=== PATIENT | female | born 2000 | race Caucasian/White ===

== ENCOUNTER → 2024-07-11 15:00 | Outpatient (BNV) | payer MEDICAID, SELFPAY | PROVIDERS: Visit Provider Internal Medicine Cardiovascular Disease | DX: R00.0 Tachycardia, unspecified (principal) | CPT/HCPCS: 93244 ==

== ENCOUNTER → 2024-07-11 | Outpatient (REF) | payer MEDICAID, SELFPAY ==
--- NOTE | 2024-07-11 | HM_ITS ---
Conclusion: 1. Patient was monitored for total period of 3 days 2. Baseline was normal sinus rhythm with average heart of 97 beats per minute 3. Frequent sinus tachycardia noted with 34% of time heart rate about 100 beats per minute 4. Rare PVCs noted with 1 3 beat run of nonsustained VT at 145 beats per minute 5. Patient marked the counter 15 times with symptoms mostly correlating with sinus tachycardia and occasionally with sinus rhythm. MTDD
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
--- OUTSIDE RECORDS SUMMARY | 2024-07-28 16:11 | XMS_ITS | Encounter Summary ---
Author Organization [facility] Address [address] [place] [address] Care Team Providers Care Hair Spinning Machine Operator Name Role Phone Harlan Singleton Primary Care Provider [phone] Encounter Details Date Type Department Care Team (Late st Contact Info) Description 07/09/2024 myChart Message [facility] [address] [place] [address] Dumpcart Driver: Josue Duran, AMBULATORY CARE NURSE [address] [place] [address] obstructive sleep apnea and CPAP Social History Tobacco Use Types Packs/Day Years Used Date Smoking Tobacco: Every Day Cigarettes Smokeless Tobacco: Never Comments Unknown Sex and Gender Information Value Date Recorded Sex Assigned at Female 03/24/2024 10:06 AM EDT Legal Sex Female 5:01 PM EDT Gender Identity Genderqueer 04/30/2024 10:45 AM EST Sexual Orientation Queer 04/30/2024 10 :45 AM EST documented as of this encounter Plan of Treatment Upcoming Encounters Date Type Department Care Team (Late st Contact Info) Description 09/01/2024 1:00 PM EDT Office Visit [facility] Building 4th floor Cardiology Medicine [address] [place] [phone] Dumpcart Driver: Yelena Curiel MD [address] [place], [place] [phone] 09/01/2024 2:30 PM EDT Follow-Up [facility] [address] [place] [phone] Dumpcart Driver: Josue Duran NP [address] [place] [phone] 09/01/2024 3:00 PM EDT Follow-Up [facility] [address] [place] [phone] Dumpcart Driver: Kenny Villarreal MD [address] [place] [phone] 09/03/2024 1:00 PM EDT Appointment [facility] [address] [place] [phone] Dumpcart Driver: Ousmane Perez PA [address] [place] [phone] documented as of this encounter Visit Diagnoses Not on filedocumented in this encounter Care Teams Hair Spinning Machine Operator Relationship Specialty Start Date End Date Harlan Singleton [address] [place] [address] PCP - General Pediatrics 03/24/24 documented as of this encounter
--- OUTSIDE RECORDS SUMMARY | 2024-07-28 16:11 | XMS_ITS | Encounter Summary ---
Author Organization [employer] Address [address] [place] [address] [address] [address] Care Team Providers Care Coding Machine Operator Name Role Phone Gena LewisSW Unavailable [phone] Raul Andrews MD Primary Care Provide r Reason for Visit * Reason Comments Individual Therapy Encounter Details Date Type Department Care Team (Late st Contact Info) Description 07/22/2024 2:00 PM EST Telemedicine [facility] [address] [place] [address] Gena Lewis, ENGINEERING PRODUCTION WORKER [address] [place] [address] Individual Therapy Social History Tobacco Use Types Packs/Day Years [...] AM EDT documented as of this encounter Patient Instructions * Patient Instructions* Gena Lewis, ENGINEERING PRODUCTION WORKER - 07/22/2024 2:00 PM EST Please reach out to your PCP to check in re: symptoms and how you're feeling generally. Practice doing what you need in steps. Work on treatment plan (and determining current priorities) at next session. Meet next week. documented in this encounter Progress Notes * LENNY Hayden - 07/22/2024 2:00 PM EST Psychotherapy Session Note Start Time: 2:07pm End Time: 2:55pm Subjective ID: Nella is a 23 y.o. White queer-identified transmasculine individual (pronouns they/them/theirs) with history of ADHD, MDD, and TESSA who presents for ADHD, Bipolar, Anxiety, and Individual Therapy. Interval History/HPI/PFSH: Clt reported they are not doing well, noting continued fevers, chills, chest pain, and fatigue and their mental health worsening along side. They reported being really frustrated not knowing what is wrong with them and not feeling like anyone takes them seriously. They reported heightened relationship stress. They reported an increase in passive SI, one instance of self harm and lots of thoughts of self harm.They said they can't take medical leave or drop classes and said they have no idea how they will get what they need to done. They agreed to try to think about doing things in steps. Mental Status Exam: General Appearance: Well groomed, appropriate eye contact. Attitude/Behavior: Cooperative, conversant, engaged, and with good eye contact. Motor: No psychomotor agitation or retardation, no tremor or other abnormal movements. Speech: Normal rate, volume, prosody Mood: Dysphoric, anxious, and mildly irritable Affect: Congruent with mood and topic of conversation Thought Process: Linear, goal directed Thought Associations: No loosening of associations Thought Content: Endorsed passive SI and denied plan and intent Perception: Does not endorse AVH or paranoid ideation Sensorium: Alert Insight: Intact Judgment: Intact Cognition: Cognitively intact to conversational testing with respect to attention, orientation, fund of knowledge, recent and remote memory, and language. Assessment/Plan Dialectical Behavioral Therapy and Motivational Interviewing Problem List Items Addressed This Visit Bipolar II disorder, most recent episode major depressive (CMS/HCC) Clt reported struggling with physical health and mental health, noting an increase in fatigue, brain fog, and thoughts of SI and thoughts NSSIB. They denied any plan to act on SI. They endorsed feeling hopeless about everything and missing nicotine as a coping skill. Clt agreed to try to practice alternate relaxation skills and to reout to their PCP. Meet next week. Generalized anxiety disorder Clt reported a lot of worry about not being able to complete everything they need to this semester and reported that not doing school isn't an option. They reported anxiety about relationships, including how to set limits. Clt agreed to practice trying to do what they need in steps. Meet next week. Risk Assessment: Imminent Risk of Suicide or Serious Self-Injury: Medium Risk factors: Depression, History of self harm , History of suicide attempt , Hopelessness , Loss (relational, social, occupational, financial) , Psychosocial stressors including being very sick thisfall and being significantly behind in school work, Severe anxiety, and endorses passive SI and thoughts of self harm Protective factors: Support through ongoing medical and mental healthcare relationships , Current/history of good response to treatment/meds , Interpersonal relationships and supports, e.g., family, friends, peers, community , Future-oriented talk, and Willingness to seek help and support Imminent Risk of Violence or Homicide: Low Risk Factors: No significant risk factors identified on screening Protective Factors: Lack of known history of harm to others documented in this encounter Miscellaneous Notes * Assessment & Plan Note - LENNY Hayden - 07/22/2024 3:05 PM EST Associated Problem(s): Bipolar II disorder, most recent episode major depressive (CMS/HCC) Clt reported struggling with physical health and mental health, noting an increase in fatigue, brain fog, and thoughts of SI and thoughts NSSIB. They denied any plan to act on SI. They endorsed feeling hopeless about everything and missing nicotine as a coping skill. Clt agreed to try to practice alternate relaxation skills and to reout to their PCP. Meet next week. * Assessment & Plan Note - LENNY Hayden - 07/22/2024 3:03 PM EST Associated Problem(s): Generalized anxiety disorder Clt reported a lot of worry about not being able to complete everything they need to this semester and reported that not doing school isn't an option. They reported anxiety about relationships, including how to set limits. Clt agreed to practice trying to do what they need in steps. Meet next week. * Care Plan - LENNY Hayden - 07/22/2024 2:00 PM EST Problem: Bi-Polar Disorder Description: As evidenced by pattern of fluctuating mood, cognitions, and energy states and, including major depressive episodes characterized most prominently by (depressed mood, anhedonia, hypersomnia/sleep disruption, low energy, psychomotor slowing/agitation, impaired cognition, low self-worth/low self esteem, suicidality/morbid thinking/hopelessness, appetite/weight changes and impaired (social, educational, vocational) functioning AND; hypomanic episodes characterized most prominently by (euphoria, irritability, flight of ideas, distractibility/difficulty concentrating, sexual indiscretions/increased libido, financial indiscretions, overconfidence/increased confidence, increased or nor mal energy despite less sleep, increased productivity, rapid speech, etc.) not resulting in significant functional impairment. Goal: GOAL # 1-#3 Description: GOAL # 1: Clt will report sustained decreases in mood dysregulation as evidenced by self-report of mood and functioning and sustained decrease in PHQ-9scores to the mild range over a sixmonth reporting period. Clt will discuss in session symptoms of depression, anger, and mood dysregulation and functioning. Clt will develop and use coping skills to manage depression and mood dysregulation. Clt will develop and use skills to manage overthinking. Clt will develop and use coping skills to manage stress at school and work. Clt will attend all therapy and psychiatry appointments and take medications as prescribed. GOAL # 2: Clt will report increased sense of self sufficiency, comfort in spending time alone, and confidence voicing their feelings as evidenced by self- report and decrease in TESSA-7 scores by two points and sustained PHQ-9 scores. Clt will practice emotional regulation skills and try to utilize themself to help manage their emotions versus relying on other people. Clt will work on prioritizing trying to spend time alone that they can appreciate and value. Clt will work on increasing comfort naming their stress and feelings in the moment Outcome: Not Progressing Note: Clt reported a lot of SI and thoughts of self harm over the past two weeks, generally due to helplessness about not knowing what is driving their health issues and feeling too tired to manage all of the the life goals they have currently. Problem: Anxiety Description: As evidenced by symptoms of: excessive fear and worry, rumination on situations and/orevents, restlessness, feeling keyed up, irritability, trouble concentrating, mind going blank, difficulty falling or staying asleep/restless unsatisfying sleep, and somatic sxs including upset, nervous stomach, muscle tension, or frequent headaches. Goal: GOAL #4 Description: GOAL # 3: Clt will report increased capacity to manage anxiety as evidenced by self-report and a decrease in TESSA-7 scores by 2 points. Clt will develop coping skills to manage anxiety about things that feel outside of his control, as well as anxiety about relationships and family dynamics. Clt will work on ways to alter their relationship to school so that it feels less all or nothing. Clt will develop skills to calm self when they start to feel they're experiencing facial and necktics while stressed and the start of a panic attack. Clt will schedule and attend sessions for therapy and psychiatry regularly. Outcome: Not Progressing Note: Clt reported they have been feeling sick, including chest pain and fevers, over the past month and report a lot of anxiety about school starting on and lacking energy for courses and not knowing how to let people know what they need and can do. documented in this encounter Plan of Treatment Upcoming Encounters Date Type Department Care Team (Late st Contact Info) Description 08/06/2024 3:00 PM EST Telemedicine [facility] [facility] [phone] Gena Lewis LICSW [address] [place] [address] documented as of this encounter Visit Diagnoses Diagnosis Bipolar II disorder, most recent episode major depressive (CMS/HCC) Other bipolar disorders Generalized anxiety disorder documented in this encounter Additional Health Concerns Assessment Noted Time PHQ-9 Depression Total Score: 13 024 1:48 PM EST documented as of this encounter Care Teams Coding Machine Operator Relationship Specialty Start Date End Date Raul Andrews MD [address] [place] [phone] PCP - General Internal Medicine 12/09/23 Gena Lewis LICSW [address] [place] [phone] Forms Analyst Behavioral Health 07/12/22 documented as of this encounter
--- OUTSIDE RECORDS SUMMARY | 2024-07-28 16:11 | XMS_ITS | Encounter Summary ---
Author Organization [employer] Address [address] [place] [address] [address] [address] Care Team Providers Care Telephone Maintainer Name Role Phone Gena Lewis CLASS C DRIVER Unavailable [phone] Raul Andrews MD Primary Care Provide r Reason for Visit * Reason Comments Med Management Encounter Details Date Type Department Care Team (Late st Contact Info) Description 07/25/2024 1:40 PM EST Telemedicine [facility] [address] [place] [address] Shawn Mariee, ELAINE [address] [place] [address] Med Management Social History Tobacco Use Types Packs/Day Years [...] AM EDT documented as of this encounter Progress Notes * Shawn Mariee, ELAINE - 07/25/2024 1:40 PM EST Psychiatry Follow-Up Note Length of visit: 20 mins Subjective ID: Nella Jesus is a 23 y.o. queer-identified trans-masculine individual (pronouns they/them) with history of ADHD, Bipolar, TESSA who presents for Med Management HPI: Last A&P from 02/28: Overall stable and well. Feeling that them symptoms are well managed on current doses of current meds. Not interested in any med adjustments at this time. Denies new/worsening symptoms to address or side effects to be concerned about. Continue current meds. And we agree to check in again once or twice a year. - Discussed need for in-person appointment and labs. They will call to book something for after theterm and probably look to transfer care closer to home. No other follow up requested or recommendedbetween now and then, PRN is fine. Bipolar: Stable on combo of lowest dose Oxcarb and Latuda, and Sertraline, continue. Of note, dosing Sertraline at night, advised to switch to morning to see if that slows down the racing mind at night. If not, could go up on Oxcarb or consider Quetiapine. TESSA: Stable with rare use of PRN Clonazepam which leads to residual morning grogginess. Continue sparinguse. ADHD: Stable/improved with switch to Vyvanse, continue. Renewed. TODAY: - PDMP checked, Vyvanse 30mg filled 07/03. - Of note, not yet seen in person. - Been rough with regards to physical health. - Now going to pulmonology and cardiology r/t tachy. Now on restart on Propranolol. - RHR over 100, - Been this way for about a month, and never has happened before. Came with other viral-type symptoms, with fatigue making school just harder, - Of note, these symptoms persisted without Vyvanse. - Understandably dysregulating mood-aguilar. - F/u with cardio in August. Advised to avoid Vyvanse and presumably other stimulants. - ADHD so much worse on Vyvanse. Hard to focus and do task completion and even simple reading comprehension. - When resting HR is under 100 would consider restarting low dose Vyvanse. - Does have applewatch and got alerting 4x in an hour last night about high HR. Current Medications: Current Outpatient Medications on File Prior to Visit Medication Sig Dispense Refill albuterol 108 (90 Base) MCG/ACT inhaler Inhale 2 puffs every 6 (six) hours if needed. clonazePAM (KlonoPIN) 0.5 MG tablet Take 1 tablet (0.5 mg) by mouth 2 times daily. 30 tablet 5 etonogestrel-eluting (Nexplanon) 68 mg contraceptive implant Nexplanon 68 mg implant lurasidone (Latuda) 80 MG tablet Take 1 tablet (80 mg) by mouth with evening meal. 90 tablet 3 OXcarbazepine (Trileptal) 150 MG tablet TAKE 1 TABLET BY MOUTH 2 TIMES DAILY 180 tablet 3 sertraline (Zoloft) 50 MG tablet Take 1 tablet (50 mg) by mouth Once per day. 90 tablet 3 [DISCONTINUED] lisdexamfetamine (Vyvanse) 30 MG capsule Take 1 capsule (30 mg) by mouth in the morning. 30 capsule 0 No current facility-administered medications on file prior to visit. Review of Symptoms: Review of Systems Constitutional: Negative. Except as per HPI All other systems reviewed and are negative. Objective There were no vitals taken for this visit. Wt Readings from Last 4 Encounters: 06/05/24 275 lb (125 kg) 05/19/24 275 lb (125 kg) 04/21/24 270 lb (122 kg) 04/03/24 270 lb (122 kg) Lab Results Component Value Date HGBA1C 5.1 04/14/2022 TSH 1.67 09/07/2022 Physical Exam Constitutional: Appearance: Normal appearance. Neurological: Mental Status: Nella is alert. Psychiatric: Attention and Perception: Attention and perception normal. Nella does not perceive auditory or visualhallucinations. Mood and Affect: Mood and affect normal. Speech: Speech normal. Behavior: Behavior normal. Behavior is cooperative. Thought Content: Thought content is not paranoid. Thought content does not include homicidal or suicidal ideation. Cognition and Memory: Cognition and memory normal. Judgment: Judgment normal. Assessment/Plan Nella Jesus is a 23 y.o. followed up with virtually today for routine follow up to check in on risks and benefits of meds and updates on mood. Overall very unstable given new onset tachycardia of unclear etiology. Thankfully accessing appropriate specialty care, Cardiology restarted Propranolol 10mg BID yesterday and so far doesn't seem to be helping. This is understandably dysregulating to their mood especially since this also means that they cannot take Vyvanse or utilize caffeine and school just restarted and they are noticing clear ADHD-related deficits. Insightful, astute, descriptive, help- seeking, and self-aware. Denies new or worsening symptoms or side effects to address. - Discussed need for in-person appointment and labs this year. Check in via video after cardiology f/u for potential med restart. Assessment/Plan Problem List Items Addressed This Visit Psychiatry Problems ADHD (attention deficit hyperactivity disorder) - Primary Unstable now off Vyvanse and feeling deficits more pronounced with resumption of school. They know to avoid caffiene and we discussed that the only non- stimulant med FDA approved for ADHD Atomoxetineis also Dopamine impacting thus would potentially lead to the same side effects. They will follow up with cardio soon, at which time we could get the green light to restart a low dose stimulant, advised they stay in touch with news. Bipolar II disorder, most recent episode major depressive (CMS/HCC) Stable on Latuda and Sertraline and Oxcarb. All 3 meds longstanding and generally do not lead to tachy. Continue. Generalized anxiety disorder Understandably unstable, continue PRN Clonazepam which does not worsen tachy. Other Tachycardia Newly diagnosed, etiology unclear, accessing appropriate speciality care. We agree not to change anything during current treatment with Propranolol. Advised they call cardiology office to talk about increasing dose and frequency of Propranolol in about a week since follow up is almost 2 months away. Risk Assessment: Imminent Risk of Suicide or Serious Self-Injury: Low Risk factors: History of not adhering to treatment or medication regimen , History of self harm , and History of suicide attempt Protective factors: Denies current suicidal ideation, Future-oriented talk , Willingness to seek help and support , Access to a variety of clinical interventions , Receiving and engaged in care for mental, physical, and substance use disorders , History of adhering to treatment recommendations and/o r prescribed medication regimen , Support through ongoing medical and mental healthcare relationships , and Current/history of good response to treatment/meds Imminent Risk of Violence or Homicide: Low Risk Factors: No significant risk factors identified on screening Protective Factors: Lack of known history of harm to others , Lack of known history of violent ideation , and Lack of known access to firearms documented in this encounter Miscellaneous Notes * Assessment & Plan Note - Shawn Mariee CNP - 07/25/2024 1:33 PM EST Associated Problem(s): Tachycardia Newly diagnosed, etiology unclear, accessing appropriate speciality care. We agree not to change anything during current treatment with Propranolol. Advised they call cardiology office to talk about increasing dose and frequency of Propranolol in about a week since follow up is almost 2 months away. * Assessment & Plan Note - Shawn Mariee CNP - 07/25/2024 1:31 PM EST Associated Problem(s): Generalized anxiety disorder Understandably unstable, continue PRN Clonazepam which does not worsen tachy. * Assessment & Plan Note - Shawn Mariee CNP - 07/25/2024 1:31 PM EST Associated Problem(s): Bipolar II disorder, most recent episode major depressive ([facility]/HCC) Stable on Latuda and Sertraline and Oxcarb. All 3 meds longstanding and generally do not lead to tachy. Continue. * Assessment & Plan Note - Shawn Mariee CNP - 07/25/2024 1:30 PM EST Associated Problem(s): ADHD (attention deficit hyperactivity disorder) Unstable now off Vyvanse and feeling deficits more pronounced with resumption of school. They know to avoid caffiene and we discussed that the only non- stimulant med FDA approved for ADHD Atomoxetineis also Dopamine impacting thus would potentially lead to the same side effects. They will follow up with cardio soon, at which time we could get the green light to restart a low dose stimulant, advised they stay in touch with news. documented in this encounter Plan of Treatment Upcoming Encounters Date Type Department Care Team (Late st Contact Info) Description 08/06/2024 3:00 PM EST Telemedicine [address] [address] Gena Lewis LICSW [address] [place] [address] documented as of this encounter Visit Diagnoses Diagnosis Attention deficit hyperactivity disorder (ADHD), unspecified ADHD type- Primary Bipolar II disorder, most recent episode major depressive (CMS/HCC) Other bipolar disorders Generalized anxiety disorder Tachycardia Unspecified tachycardia documented in this encounter Additional Health Concerns Assessment Noted Time PHQ-9 Depression Total Score: 13 024 1:48 PM EST documented as of this encounter Care Teams Telephone Maintainer Relationship Specialty Start Date End Date Raul Andrews MD [address] [place] [address] PCP - General Internal Medicine 12/09/23 Gena Lewis LICSW [address] [place] [address] Tableau Administrator Behavioral Health 07/12/22 documented as of this encounter
--- OUTSIDE RECORDS SUMMARY | 2024-07-28 16:11 | XMS_ITS | Encounter Summary ---
Author Organization [facility] Address [address] [place] [address] Care Team Providers Care Career Technical Supervisor Name Role Phone Harlan Singleton Kira Primary Care Provider [phone] Encounter Details Date Type Department Care Team (Late st Contact Info) Description 07/09/2024 Orders Only [facility] [address] [place] [address] Fiscal Accounting Clerk: Josue Duran NP [address] [place] [address] VANNESSA (obstructive sleep apnea) (Primary Dx) Social History Tobacco Use Types Packs/Day Years Used Date Smoking Tobacco: Every Day Cigarettes Smokeless Tobacco: Never Comments Unknown Sex and Gender Information Value Date Recorded Sex Assigned at Female 03/24/2024 10:06 AM EDT Legal Sex Female 5:01 PM EDT Gender Identity Genderqueer 04/30/2024 10:45 AM EST Sexual Orientation Queer 04/30/2024 10 :45 AM EST documented as of this encounter Progress Notes * Josue Osman NP - 07/09/2024 10:01 AM EST Ambulatory Summary 05/21/2024 Jasmin Akhtar-Aguarrido - 23 y.o. Female; born 2000Ma2000Data Portability, generated on 2023Nov2023 Assessment No assessment recorded. Plan of Treatment Plan of Treatment Reminders Order Date Submit Date Provider Last Modified By Organization Details Last Modified Time Details Appointments None recorded. Lab None recorded. Referral None recorded. Procedures None recorded. Surgeries None recorded. Imaging polysomnogram 04/17/2024 04/17/2024 [facility], [address] [place], [address], 05/01/2024 10:23:05 Medication Orders None recorded. Problems Reconcile with Patient's ChartProblems Name Problem SNOMED Code Status Onset Date Resolution Date Notes Provider Name and Address Organization Details Recorded Time Obstructive sleep apnea syndrome 78427834 Active 04/17/2024 PA LEWIS MD [address] [place] [address],[address], [address], [place] - [facility] 04/17/2024 14:29:21 Deviated nasal septum [id number] Active 04/20/2024 PA LEWIS MD [address] [place] [address],[address], [address], [place] - [facility] 04/20/2024 13:26:42 Note Type Note Provider Name and Address Organization Details Recorded Time 04/17/2024 text/html 23 yo presents for nasal congestion. Started 2 years ago, sick and congested, left nostril still congested, feels finger cannot go in asfar.' Does have snoring and apnea. No nasal trauma. No sinus infections. No known allergies. No trouble swallowing, no ear pain. Does have appt to see wood cut engraver. * Josue Osman NP - 07/09/2024 9:58 AM EST [address] [address] Order Type: [x] New Patient Name: Jasmin Akhtar : 2000 MR#: [id number] Patient Address: [address] [place] [address] Preferred Contact Number: [phone] (home) Insurance: Primary Visit Coverage Payer Plan Sponsor Code Group Number Group Name [facility] Primary Visit Coverage Subscriber ID Name SSN Address [id number] JASMIN AKHTAR [id number] [place] [address] Diagnosis: [x] Obstructive Sleep Apnea (G47.33) Date of Diagnostic Study: 06/06/24 Type of Study: PSG AHI: _5.8 (REM AHI 25)_ Date of most recent Syrz-zs-Kbrn Visit: 04/17/24 Therapeutic Objectives: To Treat Sleep Disordered Breathing Frequency of Use per Day: For Nightly Use During Sleep and Daily Use During Naps Location: For Use in Patient???s Home Length of Need: Lifetime (99mo) Refills on Supplies: PRN x 99 months Equipment: [X] Auto-CPAP Settings: 4-16_ CM [X] Heated Humidifier [X] Ramp to Need [X] NO EPR [X] Please enroll in online compliance Supplies: As needed and requested by patient to include: [X] Mask: Fit to comfort [X] Nasal Pillows (if applicable) [X] Cushions (if applicable) [X] Headgear [X] Chin Strap [X] Tubing [X] Heated Tubing [X] Humidifier Chamber [X] Non-disposable/disposable filters [X] Heated Humidifier Provider???s electronic signature certifies that the above represents his/her judgment of the patient???s medical need for the equipment and supplies. Please use as a script when signed: Provider???s Name: Rui Osman NP NPI#: [id number] Date of Order: 07/09/24 Home Care Company/Fax: __[facility]____ * Josue Osman NP - 07/09/2024 9:51 AM EST Follow up Telephone encounter: Recent PSG on 06/06/24 at Sleep medicine service at [facility] (ordered by ENT clinic 04/17/24 visit due to snoring, witnessed apnea) AHI 5.8, REM AHI 25, neema 88%, Lowest HR 55, highest HR 117. Mild VANNESSA with excessive daytime sleepiness Today ESS 2+2+2+1+2+1+3+0=13 Difficulty falling asleep. Wakes up feeling tired, Over the past year, gained 60 lbs, height 5'9''- BMI 40 Not on Concerta any more. Reviewed the medical complications that arise from untreated VANNESSA. Patient is having ongoing symptomatic idiopathic tachycardia. Patient agrees the importance of treatment. Agrees to start CPAP therapy. Will order auto-CPAP through DME. Emphasized the importance of using it over 4 hours a night and more than 70% of the time. Will follow up in August 2024. [facility] documented in this encounter Plan of Treatment Upcoming Encounters Date Type Department Care Team (Late st Contact Info) Description 09/01/2024 1:00 PM EDT Office Visit [facility] 4th floor Cardiology Medicine [address] [place] [address] Fiscal Accounting Clerk: Yelena Curiel MD [address] [place] [address] 09/01/2024 2:30 PM EDT Follow-Up [facility] [address] [place] [address] Fiscal Accounting Clerk: Josue Duran NP [address] [place] [address] 09/01/2024 3:00 PM EDT Follow-Up [facility] [address] [place] [address] Fiscal Accounting Clerk: Kenny Villarreal MD [address] [place] [address] 09/03/2024 1:00 PM EDT Appointment [facility] [address] [place] [address] Fiscal Accounting Clerk: Ousmane Perez PA [address] [place] [address] documented as of this encounter Visit Diagnoses Diagnosis VANNESSA (obstructive sleep apnea)- Primary Obstructive sleep apnea (adult) (pediatric) documented in this encounter Care Teams Career Technical Supervisor Relationship Specialty Start Date End Date Harlan Singleton [address] [place] [address] PCP - General Pediatrics 03/24/24 documented as of this encounter
--- OUTSIDE RECORDS SUMMARY | 2024-07-28 16:12 | XMS_ITS | Encounter Summary ---
Author Organization [facility] ([facility]) Address [address] [place] [address] Care Team Providers Care Casting Associate Name Role Phone Shruthi Cruz HEAVY ANTIARMOR WEAPONS INFANTRYMAN Unavailable Unava ilable Pcp, Non Hc Primary Care Provider Unavailabl e Reason for Visit * Reason Onset Date Comments Other 12/02/2020 Vision appt Encounter Details Date Type Department Care Team (Late st Contact Info) Description 12/02/2020 Telephone [facility] [address] [place] [address] Pcp, Non Hc [place] Other (Vision appt) Social History Tobacco Use Types Packs/Day Years Used Date Smoking Tobacco: Never Smokeless Tobacco: Never Alcohol Use Standard Drinks/Week Comments No 0 (1 standard drink = 0.6 oz pur e alcohol) Comments No Sex and Gender Information Value Date Recorded Sex Assigned at Female 11/08/2017 8:03 PM EDT Legal Sex Female 8:00 PM EDT Gender Identity Transgender Male 11/08/2017 8:03 PM EDT Sexual Orientation Bisexual 11/08/2017 8: 03 PM EDT documented as of this encounter Miscellaneous Notes * Telephone Encounter - Gregorio Thompson - 12/02/2020 1:06 PM EDT CC if pt calls back please r/s vision appt for a later time, appts at [facility] can not be book between 8-9AM or 4-5PM Thank you ! documented in this encounter Plan of Treatment Not on file documented as of this encounter Goals Goal Patient Goal Type Associated Problems Recent Progress Patient-Stated? Author Decrease depressed mood BHI Not on track( 016 4:29 PM EDT) No Shruthi Carmona LCSW Add fruits & vegetables daily Diet No Cindi Jamil RD, LDN, [place] avoid rigid food habits Diet No Cindi Jamil RD, LDN, [place] Modify meal routines Weight Obesity, pediatric No Macey Hu MD documented as of this encounter Visit Diagnoses Not on filedocumented in this encounter Additional Health Concerns Infection Onset Date Last Indicated Resolved Time COVID Suspected 03/22/2021 03/22/2021 03/24/2021 6 :54 AM EDT documented as of this encounter Care Teams Casting Associate Relationship Specialty Start Date End Date Pcp, Non Hc [facility] PCP - General Adult Medicine 09/20/20 Shruthi Cruz LCSW Mental Health Behavioral Health 12/03/15 documented as of this encounter
--- OUTSIDE RECORDS SUMMARY | 2024-07-28 16:12 | XMS_ITS | Encounter Summary ---
Author Organization [facility] Address [phone] [facility] [place] [address] Care Team Providers Care Car Electronics Installer Name Role Phone Jennifer Negron NP Primary Care Provider [phone] Encounter Details Date Type Department Care Team (Latest Contact Info) Description 03/13/2024 Transcribe Orders [facility] [address] [place] [address] Unknown, Unknown, Encounter for rehabilitation (Primary Dx) Social History Tobacco Use Types Packs/Day Years Used Date Smoking Tobacco: Never Smokeless Tobacco: Never Alcohol Use Standard Drinks/Week Comments Yes 0 (1 standard drink = 0.6 oz pur e alcohol) Occassionally Education Answer Date Recorded Are you interested in more education? Not on dorothy e 10/20/2022 Are you concerned about learning? Not on file 10/20/2022 No 10/20/2022 No 10/20/2022 Digital Access Answer Date Recorded No 11/14/2022 No 11/14/2022 Reliable internet access at home? Not on file 11/14/2022 Device with a working camera? Not on file Intimate Partner Violence Answer Date R ecorded Are you denied basic needs s uch as food, clothing, or medical care? No 03/16/2024 In the past 12 months have y ou been in a relationship with a person who hurts, threatens, or tries to control you? No 03/16/2024 Are you denied basic needs s uch as food, clothing, or medical care? No 03/16/2024 In the past 12 months have y ou been in a relationship with a person who hurts, threatens, or tries to control you? No 03/16/2024 Sex and Gender Information Value Date Recorded Sex Assigned at Female 03/27/2021 2:48 PM EDT Gender Identity Transgender Male 08/06/2018 6:46 PM EST Sexual Orientation Bisexual 03/27/2021 2: 48 PM EDT Sexual Orientation Pansexual 03/27/2021 2: 48 PM EDT documented as of this encounter Plan of Treatment Upcoming Encounters Date Type Department Care Team (Late st Contact Info) Description 10/14/2024 9:45 AM EDT Office Visit [address] [address] Marilynn Whitley, NII [address] [place] [address] Rosy Dawkins, PT [address] [place] [address] 10/21/2024 9:45 AM EDT Office Visit [address] [address] Marilynn Whitley, NII [facility] [place] [address] Rosy Dawkins, PT [address] [place] [address] 10/28/2024 9:45 AM EDT Office Visit [address] [address] Marilynn Whitley, NII [address] [place] [address] Rosy Dawkins, PT [address] [place] [address] 11/04/2024 9:45 AM EDT Office Visit [address] [address] Marilynn Whitley, NII [address] [place] [address] Rosy Dawkins, PT [address] [place] [address] 11/11/2024 9:45 AM EDT Office Visit [facility] [address] [place] [address] Marilynn Whitley, DIRECTOR CARDIOVASCULAR [address] [place] [address] Rosy Dawkins, PT [address] [place] [address] 11/18/2024 9:45 AM EDT Office Visit [facility] [address] [place] [address] Marilynn Whitley, NII [address] [place] [address] Rosy Dawkins, PT [address] [place] [address] 11/25/2024 9:45 AM EDT Office Visit [facility] [address] [place] [address] Marilynn Whitley, DIRECTOR CARDIOVASCULAR [address] [place] [address] Rosy Dawkins, PT [address] [place] [address] 12/02/2024 9:45 AM EDT Office Visit [address] [address] Marilynn Whitley, DIRECTOR CARDIOVASCULAR [address] [place] [address] Rosy Dawkins, PT [address] [place] [address] documented as of this encounter Visit Diagnoses Diagnosis Encounter for rehabilitation- Primary documented in this encounter Additional Health Concerns Infection Onset Date Last Indicated Resolved Time CoV-Risk 03/16/2024 03/16/2024 03/27/2024 1:22 AM EDT CoV-Risk 07/03/2024 07/03/2024 07/14/2024 1:22 AM EST documented as of this encounter Care Teams Car Electronics Installer Relationship Specialty Start Date End Date Jennifer Negron NP [address] [facility] [address] [place] [address] PCP - General Nurse Practitioner 06/26/23 documented as of this encounter Additional Source Comments The information contained in this document represents components of the legal health record. It is not the complete legal health record.[facility]
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
--- OUTSIDE RECORDS SUMMARY | 2024-07-28 16:12 | XMS_ITS | Encounter Summary ---
Author Organization [facility] Address [phone] [facility] [place] [address] Care Team Providers Care Shovel Mechanic Name Role Phone Jennifer Negron NP Primary Care Provider [phone] Reason for Visit * Reason Comments Fatigue Fatigue,body aches, chills, fever,sob, stomach pain for the past 8 days getting worse and for the past hr pt feels weak and shaky Encounter Details Date Type Department Care Team (Late st Contact Info) Description 07/03/2024 5:00 PM EST Office Visit [facility] at [address] [address] Laura Marquez, [address] [address] Tachycardia (Primary Dx); Shortness of breath Social History Tobacco Use Types Packs/Day Years Used Date Smoking Tobacco: Some Days Cigarettes Smokeless Tobacco: Never Alcohol Use Standard Drinks/Week [...] as food, clothing, or medical care? No 07/03/2024 In the past 12 months have y ou been in a relationship with a person who hurts, threatens, or tries to control you? No 07/03/2024 Are you denied basic needs s uch as food, clothing, or medical care? No 07/03/2024 In the past 12 months have y ou been in a relationship with a person who hurts, threatens, or tries to control you? No 07/03/2024 Sex and Gender Information Value Date Recorded Sex Assigned at Female 03/27/2021 2:48 PM EDT Gender Identity Transgender Male 08/06/2018 6:46 PM EST Sexual Orientation Bisexual 03/27/2021 2: 48 PM EDT Sexual Orientation Pansexual 03/27/2021 2: 48 PM EDT documented as of this encounter Last Filed Vital Signs Vital Sign Reading Time Taken Comments Blood Pressure 147/101 07/03/2024 6:34 PM EST Pulse 116 07/03/2024 5:33 PM EST Temperature 36.7 ??C (98.1 ??F) 07/03/2024 5:33 PM ES T Respiratory Rate 20 07/03/2024 5:33 PM EST Oxygen Saturation 96% 07/03/2024 5:33 PM EST Inhaled Oxygen Concentration - - Weight 127 kg (280 lb) 07/03/2024 5:33 PM EST Height 175.3 cm (5' 9 ) 07/03/2024 5:33 PM EST Body Mass Index 41.35 07/03/2024 5:33 PM EST documented in this encounter Progress Notes * Laura Marquez, BASEBALL WINDER - 07/03/2024 5:00 PM EST Images from the original note were not included. Subjective: Patient ID: Jasmin Smith is a 23 y.o. adult. Pt reports atigue,body aches, chills, fever,sob, stomach pain for the past 8 days getting worse, nodiarrhea for 3 days. Weak, shakey, SOB x past hour [employer]. Review of Systems Constitutional: Positive for chills and fever. HENT: Positive for congestion and rhinorrhea. Respiratory: Positive for cough and shortness of breath. Cardiovascular: Positive for chest pain. Gastrointestinal: Positive for abdominal pain and diarrhea. Negative for nausea and vomiting. Neurological: Positive for weakness. Vitals: 07/03/24 1733 07/03/24 1834 BP: (!) 154/110 (!) 147/101 BP Location: Right arm Patient Position: Sitting Pulse: (!) 116 Resp: 20 Temp: 36.7 ??C (98.1 ??F) TempSrc: Temporal SpO2: 96% Weight: 127 kg (280 lb) Height: 175.3 cm (5' 9 ) Objective: Physical Exam Constitutional: Appearance: Normal appearance. HENT: Head: Normocephalic and atraumatic. Right Ear: External ear normal. Left Ear: External ear normal. Nose: Congestion and rhinorrhea present. Mouth/Throat: Mouth: Mucous membranes are dry. Pharynx: Oropharynx is clear. Cardiovascular: Rate and Rhythm: Tachycardia present. Heart sounds: No murmur heard. No gallop. Pulmonary: Effort: Pulmonary effort is normal. Breath sounds: Normal breath sounds. Abdominal: General: Abdomen is protuberant. Bowel sounds are normal. Palpations: Abdomen is soft. Tenderness: There is no abdominal tenderness. Skin: General: Skin is warm and dry. Neurological: General: No focal deficit present. Mental Status: He is alert and oriented to person, place, and time. Psychiatric: Mood and Affect: Mood normal. Behavior: Behavior normal. Thought Content: Thought content normal. Judgment: Judgment normal. Results for orders placed or performed in visit on 07/03/24 POCT COVID-19 RT-PCR/Influenza A & B/RSV (Cepheid) Result Value Ref Range Source Nasal swab SARS-CoV-2 (COVID-19) NEGATIVE-Valid Control NEGATIVE-Valid Control Influenza A Negative, Valid Control Negative, Valid Control Influenza B Negative, Valid Control Negative, Valid Control RSV Negative, Valid Control Negative, Valid Control Procedure: Procedures Assessment/Plan: Diagnosis Plan 1. Tachycardia 2. Shortness of breath POCT COVID-19 RT-PCR/Influenza A & B/RSV (Cepheid) XR Chest Assessment and Plan: Pt with tachycardia and CP, POC testing, CXR negative, 12-lead showed tachycardia but otherwise WNL. Appears mildly dehydrated. While pt waiting for results/ recommendation from medical accounting clerk she c/o worsening CP, therefore ED eval indicated. documented in this encounter Plan of Treatment Upcoming Encounters Date Type Department Care Team (Late st Contact Info) Description 10/14/2024 9:45 AM EDT Office Visit [address] [address] Marilynn Whitley, NII [address] [place] [address] Rosy Dawkins, PT [address] [place] [address] 10/21/2024 9:45 AM EDT Office Visit [address] [address] Marilynn Whitley, NII [address] [place] [address] Rosy Dawkins, PT [address] [place] [address] 10/28/2024 9:45 AM EDT Office Visit [address] [address] Marilynn Whitley, MICROBIAL SPECIALIST [address] [place] [address] Rosy Dawkins, PT [address] [place] [address] 11/04/2024 9:45 AM EDT Office Visit [address] [address] Marilynn Whitley, MICROBIAL SPECIALIST [address] [place] [address] Rosy Dawkins, PT [address] [place] [address] 11/11/2024 9:45 AM EDT Office Visit [address] [address] Marilynn Whitley, MICROBIAL SPECIALIST [address] [place] [address] Rosy Dawkins, PT [address] [place] [address] 11/18/2024 9:45 AM EDT Office Visit [facility] [address] [place] [address] Marilynn Whitley, MICROBIAL SPECIALIST [address] [place] [address] Rosy Dawkins, PT [address] [place] [address] 11/25/2024 9:45 AM EDT Office Visit [facility] [address] [place] [address] Marilynn Whitley, MICROBIAL SPECIALIST [address] [place] [address] Rosy Dawkins, PT [address] [place] [address] 12/02/2024 9:45 AM EDT Office Visit [facility] [address] [place] [address] Marilynn Whitley, MICROBIAL SPECIALIST [address] [place] [address] Rosy Dawkins, PT [address] [place] [address] documented as of this encounter Procedures Procedure Name Priority Date/Time Associated Diagnosis Comments POCT COVID-19 RT-PCR/INFLUENZA A & B/RSV CEPHEID Routine 07/03/2024 6:08 PM EST Shortness of breath XR CHEST PA AND LATERAL 2 VIEWS Urgent/patient waiting 07/03/2024 5:58 PM EST Shortness of breath documented in this encounter Results * POCT COVID-19 RT-PCR/Influenza A & B/RSV (Cepheid) (07/03/2024 6:08 PM EST) Source Nasal swab SARS-CoV-2 (COVID-19) NEGATIVE-Va lid Control NEGATIVE-Va lid Control Influenza A Negative, Valid Control Negative, Valid Control Influenza B Negative, Valid Control Negative, Valid Control RSV Negative, Valid Control Negative, Valid Control Other 07/03/2024 6:08 PM EST Laura Marquez CNP POINT OF CARE TEST ORDERABLES * XR CHEST PA AND LATERAL 2 VIEWS (07/03/2024 5:58 PM EST) Anatomical Region Laterality Modality Chest Computed Radiogr aphy 07/03/2024 6:16 PM EST Impressions 07/03/2024 6:20 PM EST No acute findings. Narrative 07/03/2024 6:20 PM EST XR CHEST PA AND LATERAL 2 VIEWS Referring clinician's provided indication for this examination in [facility]: Cough COMPARISON: XR CHEST PA AND LATERAL 2 VIEWS FINDINGS: Devices/Tubes/Lines: None. Lungs: No focal consolidation or pulmonary edema. Pleura: Similar mild blunting of the right costophrenic sulcus could reflect pleural thickening. Heart/Mediastinum: Normal heart and mediastinum. Bones/Soft Tissues: No significant skeletal abnormality. Procedure Note Brittany Jaeger MD - 07/03/2024 XR CHEST PA AND LATERAL 2 VIEWS Referring clinician's provided indication for this examination in [facility]:Cough COMPARISON: XR CHEST PA AND LATERAL 2 VIEWS FINDINGS: Devices/Tubes/Lines: None. Lungs: No focal consolidation or pulmonary edema. Pleura: Similar mild blunting of the right costophrenic sulcus couldreflect pleural thickening. Heart/Mediastinum: Normal heart and mediastinum. Bones/Soft Tissues: No significant skeletal abnormality. IMPRESSION: No acute findings. Laura Marquez CNP IMG XR CHEST documented in this encounter Visit Diagnoses Diagnosis Tachycardia- Primary Unspecified tachycardia Shortness of breath documented in this encounter Additional Health Concerns Infection Onset Date Last Indicated Resolved Time CoV-Risk 07/03/2024 07/03/2024 07/14/2024 1:22 AM EST documented as of this encounter Care Teams Shovel Mechanic Relationship Specialty Start Date End Date Jennifer Negron NP [address] [address] PCP - General Nurse Practitioner 06/26/23 documented as of this encounter Additional Source Comments The information contained in this document represents components of the legal health record. It is not the complete legal health record.[facility]
--- OUTSIDE RECORDS SUMMARY | 2024-07-28 16:12 | XMS_ITS | Encounter Summary ---
Author Organization [facility] Address [phone] [facility] [place] [address] Care Team Providers Care Family Dentist Name Role Phone Pcp, Unknown Primary Care Provider Unavailjuan luis e Jennifer Negron MANAGER ACCESS Primary Care Provider [phone] Jennifer Negron NP Primary Care Provider [phone] Encounter Details Date Type Department Care Team (Latest Contact Info) Description 04/03/2022 Transcribe Orders Virtual Department [address] [place] [address] Jennifer Negron NP [address] [place] [address] Pelvic pain (Primary Dx); Polycystic ovarian syndrome Social History Tobacco Use Types Packs/Day Years Used Date Smoking Tobacco: Never Smokeless Tobacco: Never Sex and Gender Information Value Date Recorded [...] Description 10/14/2024 9:45 AM EDT Office Visit [facility] [address] [place] [address] Marilynn Whitley, NII [address] [place] [address] Rosy Dawkins, PT [address] [place] [address] 10/21/2024 9:45 AM EDT Office Visit [address] [address] Marilynn Whitley, MANAGER ACCESS [address] [place] [address] Rosy Dawkins, PT [address] [place] [address] 10/28/2024 9:45 AM EDT Office Visit [address] [address] Marilynn Whitley, MANAGER ACCESS [address] [place] [address] Rosy Dawkins, PT [address] [place] [address] 11/04/2024 9:45 AM EDT Office Visit [address] [address] Marilynn Whitley, MANAGER ACCESS [address] [place] [address] Rosy Dawkins, PT [address] [place] [address] 11/11/2024 9:45 AM EDT Office Visit [address] [address] Marilynn Whitley, MANAGER ACCESS [address] [place] [address] Rosy Dawkins, PT [address] [place] [address] 11/18/2024 9:45 AM EDT Office Visit [address] [address] Marilynn Whitley, MANAGER ACCESS [address] [place] [address] Rosy Dawkins, PT [address] [place] [address], [place] [address] 11/25/2024 9:45 AM EDT Office Visit [facility] [address] [place] [address] Marilynn Whitley, MANAGER ACCESS [address] [place] [address] Rosy Dawkins, PT [address] [place] [address] 12/02/2024 9:45 AM EDT Office Visit [facility] [address] [facility] [address] Marilynn Whitley, NII [address] [place] [address] Rosy Dawkins, PT [address] [place] [address] documented as of this encounter Results * US PELVIS TRANSABDOMINAL PLUS TRANSVAGINAL (04/19/2022 4:42 PM EDT) Anatomical Region Laterality Modality Pelvis, Uterus/Adnexa Ultrasound 04/20/2022 8:26 AM EDT Impressions 04/20/2022 8:30 AM EDT 1.Normal sonographic appearance of the uterus and bilateral ovaries. Narrative 04/20/2022 8:30 AM EDT US PELVIS TRANSABDOMINAL PLUS TRANSVAGINAL TECHNIQUE: Pelvic Ultrasound Transabdominal performed for global imaging of the pelvis. Pelvic Ultrasound Transvaginal performed for detailed imaging of the endometrium and/or adnexa. COMPARISON: Pelvic sonography 03/30/2021 FINDINGS: Uterus: Size: ??7.2 x 2.6 x 4.2 cm. Orientation: anteverted ??Myometrium: Normal. Endometrium: Normal. Thickness: 2 mm. Right adnexa: Ovary: Normal. The right ovary measures 2.6 x 1.9 x 2.3 cm. Normal color and spectral Doppler waveform analysis. Left adnexa: Ovary: Normal. The left ovary measures 2.2 x 1.3 x 1.4 cm. Color and spectral Doppler waveform analysis limited by positioning of the ovary. Free fluid: No significant free fluid. Procedure Note Diane Dejesus MD - 04/20/2022 US PELVIS TRANSABDOMINAL PLUS TRANSVAGINAL TECHNIQUE: Pelvic Ultrasound Transabdominal performed for global imagingof the pelvis. Pelvic Ultrasound Transvaginal performed for detailedimaging of the endometrium and/or adnexa. COMPARISON: Pelvic sonography 03/30/2021 FINDINGS: Uterus: Size: 7.2 x 2.6 x 4.2 cm. Orientation: anteverted Myometrium: Normal. Endometrium: Normal. Thickness: 2 mm. Right adnexa: Ovary: Normal. The right ovary measures 2.6 x 1.9 x 2.3 cm. Normal color andspectral Doppler waveform analysis. Left adnexa: Ovary: Normal. The left ovary measures 2.2 x 1.3 x 1.4 cm. Color and spectralDoppler waveform analysis limited by positioning of the ovary. Free fluid: No significant free fluid. IMPRESSION: 1.Normal sonographic appearance of the uterus and bilateral ovaries. Jennifer Negron NP IMG US PELVIS documented in this encounter Visit Diagnoses Diagnosis Pelvic pain- Primary Polycystic ovarian syndrome Polycystic ovaries Pelvic pain Polycystic ovarian syndrome Polycystic ovaries documented in this encounter Additional Health Concerns Infection Onset Date Last Indicated Resolved Time CoV-Risk 03/16/2024 03/16/2024 03/27/2024 1:22 AM EDT CoV-Risk 07/03/2024 07/03/2024 07/14/2024 1:22 AM EST documented as of this encounter Care Teams Family Dentist Relationship Specialty Start Date End Date Pcp, Unknown PCP - General 03/15/21 04/13/22 Jennifer Negron NP [address] [address] PCP - General 04/14/22 06/25/23 Jennifer Negron NP [address] [address] PCP - General Nurse Practitioner 06/26/23 documented as of this encounter Additional Source Comments The information contained in this document represents components of the legal health record. It is not the complete legal health record.[facility]
--- OUTSIDE RECORDS SUMMARY | 2024-07-28 16:12 | XMS_ITS | Encounter Summary ---
Author Organization [facility] Address [phone] [facility] [place] [address] Care Team Providers Care Net Software Architect Name Role Phone Pcp, Unknown Primary Care Provider Jennifer Dunham NP Primary Care Provider [phone] Jennifer Negron NP Primary Care Provider [phone] Encounter Details Date Type Department Care Team (Late st Contact Info) Description 03/15/2021 Transcribe Orders Virtual Department [address] [place] [address] Julia Ferrara CNP [address] [place] [phone] [email or web address] Pelvic and perineal pain (Primary Dx) Social History Tobacco Use Types [...] Description 10/14/2024 9:45 AM EDT Office Visit [facility] [address] [place] [id number] Marliynn Whitley, NII [address] [place] [address] Rosy Dawkins, PT [address] [place] [address] 10/21/2024 9:45 AM EDT Office Visit [facility] [address] [place] [address] Marilynn Whitley, AMBULANCE DRIVER PARAMEDIC [address] [place] [address] Rosy Dawkins, PT [address] [place] [address] 10/28/2024 9:45 AM EDT Office Visit [address] [address] Marilynn Whitley, AMBULANCE DRIVER PARAMEDIC [address] [place] [address] Rosy Dawkins, PT [address] [place] [address] 11/04/2024 9:45 AM EDT Office Visit [address] [address] Marilynn Whitley, AMBULANCE DRIVER PARAMEDIC [address] [place] [address] Rosy Dawkins, PT [address] [place] [address] 11/11/2024 9:45 AM EDT Office Visit [address] [address] Marilynn Whitley, AMBULANCE DRIVER PARAMEDIC [address] [place] [address] Rosy Dawkins, PT [address] [place] [address] 11/18/2024 9:45 AM EDT Office Visit [address] [address] Marilynn Whitley, AMBULANCE DRIVER PARAMEDIC [address] [place] [address] Rosy Dawkins, PT [address] [place] [address] 11/25/2024 9:45 AM EDT Office Visit [facility] [address] [place] [address] Marilynn Whitley, AMBULANCE DRIVER PARAMEDIC [address] [place] [address] Rosy Dawkins, PT [address] [place] [address] 12/02/2024 9:45 AM EDT Office Visit [facility] [address] [place] [address] Marilynn Whitley, AMBULANCE DRIVER PARAMEDIC [address] [place] [address] Rosy Dawkins, PT [address] [place] [address] documented as of this encounter Results * US PELVIS TRANSABDOMINAL PLUS TRANSVAGINAL (03/30/2021 5:01 PM EDT) Anatomical Region Laterality Modality Pelvis, Uterus/Adnexa Ultrasound 03/30/2021 5:14 PM EDT Impressions 03/30/2021 5:16 PM EDT Intrauterine device in appropriate position. No sonographic abnormalities. Narrative 03/30/2021 5:16 PM EDT EXAM: ?? US PELVIS TRANSABDOMINAL PLUS TRANSVAGINAL COMPARISON: None HISTORY: Pain FINDINGS: UTERUS: The uterus is anteflexed, measures 7.6 cm x 3.3 cm x 5.1 cm, volume of 66.4 cm3, and demonstrates homogeneous ??myometrial echotexture. The endometrial echocomplex measures 0.3 cm in thickness. Intrauterine device in place terminates at 0.2 cm from the fundic end of the endometrium. RIGHT OVARY: 3.6 cm x 1.9 cm x 2.5 cm, volume of 9.0 cm3. Normal follicular appearance. Arterial and venous flow is demonstrated with color and spectral Doppler.. LEFT OVARY: 3.4 cm x 2.0 cm x 3.2 cm, volume of 11.3 cm3. Normal follicular appearance. Arterial and venous flow is demonstrated with color and spectral Doppler.. PELVIS: No free fluid. Procedure Note Triston Ware MD - 03/30/2021 EXAM: US PELVIS TRANSABDOMINAL PLUS TRANSVAGINAL COMPARISON: None HISTORY: Pain FINDINGS: UTERUS: The uterus is anteflexed, measures 7.6 cm x 3.3 cm x 5.1 cm,volume of 66.4 cm3, and demonstrates homogeneous myometrial echotexture.The endometrial echocomplex measures 0.3 cm in thickness. Intrauterinedevice in place terminates at 0.2 cm from the fundic end of theendometrium. RIGHT OVARY: 3.6 cm x 1.9 cm x 2.5 cm, volume of 9.0 cm3. Normalfollicular appearance. Arterial and venous flow is demonstrated with colorand spectral Doppler.. LEFT OVARY: 3.4 cm x 2.0 cm x 3.2 cm, volume of 11.3 cm3. Normalfollicular appearance. Arterial and venous flow is demonstrated with colorand spectral Doppler.. PELVIS: No free fluid. IMPRESSION: Intrauterine device in appropriate position. No sonographicabnormalities. Nemesio-Catjames Ferrara [facility] IM US PELVIS documented in this encounter Visit Diagnoses Diagnosis Pelvic and perineal pain- Primary Pelvic and perineal pain documented in this encounter Additional Health Concerns Infection Onset Date Last Indicated Resolved Time CoV-Risk 03/16/2024 03/16/2024 03/27/2024 1:22 AM EDT CoV-Risk 07/03/2024 07/03/2024 07/14/2024 1:22 AM EST documented as of this encounter Care Teams Net Software Architect Relationship Specialty Start Date End Date Pcp, Unknown PCP - General 03/15/21 04/13/22 Jennifer Negron NP [address] [place] [address] PCP - General 04/14/22 06/25/23 Jennifer Negron NP [address] [place] [address] PCP - General Nurse Practitioner 06/26/23 documented as of this encounter Additional Source Comments The information contained in this document represents components of the legal health record. It is not the complete legal health record.[facility]
--- OUTSIDE RECORDS SUMMARY | 2024-07-28 16:12 | XMS_ITS | Encounter Summary ---
Author Organization [facility] Address [phone] [place] [address] Care Team Providers Care [employer] Plans Staff Officer Name Role Phone Jennifer Negron NP Primary Care Provider [phone] Reason for Referral * Outpatient Procedure - Closed Specialty Diagnoses / Procedures Referred By Contac t Referred To Contact Radiology Diagnoses Right calf pain Procedures US Lower Extremity Veins Duplex (Right) Jennifer Negron NP [address] [address] Referral ID Status Reason Start Date Expiration Date Visits Re quested Visits Authorized [id number] Closed 10/19/2023 10/18/2024 1 1 Encounter Details Date Type Department Care Team (Latest Contact Info) Description 10/22/2023 Transcribe Orders Virtual Department [address] [place] [address] Jennifer Negron NP [address] [address] Right calf pain (Primary Dx) Social History Tobacco Use Types Packs/Day Years Used Date Smoking Tobacco: Never Smokeless Tobacco: Never Education Answer Date Recorded Are you interested in more education? Not on dorothy e 10/20/2022 Are you concerned about learning? Not on file 10/20/2022 No 10/20/2022 No 10/20/2022 Digital Access Answer Date Recorded No 11/14/2022 No 11/14/2022 Reliable internet access at home? Not on file 11/14/2022 Device with a working camera? Not on file Sex and Gender Information Value Date Recorded [...] Description 10/14/2024 9:45 AM EDT Office Visit [address] [address] Marilynn Whitley, NII [address] [place] [address] Rosy Dawkins, PT [address] [place] [address] 10/21/2024 9:45 AM EDT Office Visit [address] [address] Marilynn Whitley, DISTRICT FI[employer]F [facility] [place] [address] Rosy Dawkins, PT [address] [place] [address] 10/28/2024 9:45 AM EDT Office Visit [address] [address] Marilynn Whitley, DISTRICT FI[employer] CHIEF [facility] [place] [address] Rosy Dawkins, PT [address] [place] [address] 11/04/2024 9:45 AM EDT Office Visit [address] [address] Marilynn Whitley, NII [facility] [place] [address] Rosy Dawkins, PT [address] [place] [address] 11/11/2024 9:45 AM EDT Office Visit [facility] [address] [place] [address] Marilynn Whitley, DISTRICT [employer]IEF [address] [place] [address] Rosy Dawkins, PT [address] [place] [address] 11/18/2024 9:45 AM EDT Office Visit [address] [address] Marilynn Whitley, DISTRICT FI[employer]IEF [address] [place] [address] Rosy Dawkins, PT [address] [place] [address] 11/25/2024 9:45 AM EDT Office Visit [address] [address] Marilynn Whitley, DISTRICT FI[employer]IEF [address] [place] [address] Rosy Dawkins, PT [address] [place] [address] 12/02/2024 9:45 AM EDT Office Visit [address] [address] Marilynn Whitley, DISTRICT FI[employer] CHIEF [address] [place] [address] Rosy Dawkins, PT [address] [place] [address] documented as of this encounter Results * US Lower Extremity Veins Duplex (Right) (11/02/2023 4:17 PM EDT) Anatomical Region Laterality Modality Hip Right, Thigh Right, Knee Right, Leg Right, Ankle Right, Foot Right Ultrasound 11/02/2023 5:25 PM EDT Impressions 11/02/2023 5:25 PM EDT * ??No evidence of deep or superficial venous thrombosis in the visualized veins of the right lower extremity. Narrative 11/02/2023 5:25 PM EDT US LOWER EXTREMITY VEINS DUPLEX (RIGHT) Referring clinician's provided indication for this examination in [facility]: Outside Radiology Order; right calf pain TECHNIQUE: Lower extremity venous ultrasound with color and spectral Doppler. COMPARISON: FINDINGS: Exam Quality: Technically adequate exam demonstrates: Right lower extremity Common femoral vein: Normal compressibility and flow characteristics. Femoral vein: Normal compressibility and flow characteristics. Proximal profunda femoral vein: Normal compressibility. Popliteal vein: Normal compressibility and flow characteristics. Posterior tibial veins: Normal compressibility. Peroneal veins: Normal compressibility. Great saphenous vein: Normal compressibility at the saphenofemoral junction. Contralateral common femoral vein: Normal compressibility. Procedure Note Vaughn Matson MD, OMAR - 11/02/2023 US LOWER EXTREMITY VEINS DUPLEX (RIGHT) Referring clinician's provided indication for this examination in [facility]:Outside Radiology Order; right calf pain TECHNIQUE: Lower extremity venous ultrasound with color and spectralDoppler. COMPARISON: FINDINGS: Exam Quality: Technically adequate exam demonstrates: Right lower extremity Common femoral vein: Normal compressibility and flow characteristics. Femoral vein: Normal compressibility and flow characteristics. Proximal profunda femoral vein: Normal compressibility. Popliteal vein: Normal compressibility and flow characteristics. Posterior tibial veins: Normal compressibility. Peroneal veins: Normal compressibility. Great saphenous vein: Normal compressibility at the saphenofemoraljunction. Contralateral common femoral vein: Normal compressibility. IMPRESSION: * No evidence of deep or superficial venous thrombosis in the visualizedveins of the right lower extremity. Jennifer Negron NP CV US VASCULAR documented in this encounter Visit Diagnoses Diagnosis Right calf pain- Primary Right calf pain documented in this encounter Additional Health Concerns Infection Onset Date Last Indicated Resolved Time CoV-Risk 03/16/2024 03/16/2024 03/27/2024 1:22 AM EDT CoV-Risk 07/03/2024 07/03/2024 07/14/2024 1:22 AM EST documented as of this encounter Care Teams Aadc Plans Staff Officer Relationship Specialty Start Date End Date Jennifer Negron NP 6 [facility] [address] [place] [address] PCP - General Nurse Practitioner 06/26/23 documented as of this encounter Additional Source Comments The information contained in this document represents components of the legal health record. It is not the complete legal health record.[facility]
--- OUTSIDE RECORDS SUMMARY | 2024-07-28 16:12 | XMS_ITS | Clinical Summary ---
Author Organization [facility] Address [address] [place] [address] Care Team Providers Care General Office Assistant Name Role Phone Harlan Singleton Primary Care Provider [phone] Medications Hospital, Clinic, or Other Facility Administered Medication Ordered Dose Route Frequency Start Date End Date Status methacholine nebulizer solution 1 kit 1 kit inhalation 5 times daily as needed 05/21/2024 Active Encounters Date Type Department Care Team Description 07/09/2024 My [place] Message [facility] [address] [place] [address] Flue Blower: Josue Duran NP obstructive sleep apnea and CPAP 07/09/2024 Orders Only [facility] [address] [place] [address] Flue Blower: Josue Duran NP VANNESSA (obstructive sleep apnea) (Primary Dx) 07/04/2024 Telephone [facility] [address] [place] [address] Flue Blower: Kenny Villarreal MD Cassi / mild chest pain 05/26/2024 Orders Only [facility] [address] [address] Flue Blower: Kenny Villarreal MD Dyspnea on exertion (Primary Dx); Chronic cough 05/26/2024 Telephone [facility] [address] [place] [address] Flue Blower: Kenny Villarreal MD Alpert / Next steps 05/21/2024 11:40 AM EST - 05/21/2024 11:59 PM EST Hospital Encounter [facility] [address] [place] [address] Kenny Ye MD Dyspnea on exertion; History of pneumonia, recurrent Discharge Disposition: Home or Self Care (01) 05/19/2024 Telephone [facility] [address] [place] [address] Flue Blower: Kenny Villarreal MD Alpert / Results of lab work 05/07/2024 3:00 PM EST Office Visit [facility] [address] [address] Flue Blower: Kenny Villarreal MD Dyspnea on exertion (Primary Dx); History of pneumonia, recurrent from Last 3 Months Social History Tobacco Use Types Packs/Day Years Used Date Smoking Tobacco: Every Day Cigarettes Smokeless Tobacco: Never Tobacco Cessation:Ready to Q uit: Not Asked; Counseling Given: Not Answered Comments Unknown Sex and Gender Information Value Date Recorded Sex Assigned at Female 03/24/2024 10:06 AM EDT Legal Sex Female 5:01 PM EDT Gender Identity Genderqueer 04/30/2024 10:45 AM EST Sexual Orientation Queer 04/30/2024 10 :45 AM EST Last Filed Vital Signs Vital Sign Reading Time Taken Comments Blood Pressure 120/87 05/07/2024 2:59 PM EST Pulse 116 05/07/2024 2:59 PM EST Temperature - - Respiratory Rate 18 05/07/2024 2:59 PM EST Oxygen Saturation 97% 05/07/2024 2:59 PM EST Inhaled Oxygen Concentration - - Weight 122.9 kg (271 lb) 05/07/2024 2:59 PM EST Height - - Body Mass Index - - Plan of Treatment Upcoming Encounters Date Type Department Care Team (Late st Contact Info) Description 09/01/2024 1:00 PM EDT Office Visit [facility] Building 4th floor Cardiology Medicine [address] [place] [address] Flue Blower: Yelena Curiel MD [address] [place] [address] 09/01/2024 2:30 PM EDT Follow-Up [facility] [address] [place] [address] Flue Blower: Josue Duran NP [address] [place] [address] 09/01/2024 3:00 PM EDT Follow-Up [facility] [address] [place] [address] Flue Blower: Kenny Villarreal MD [address] [place] [address] 09/03/2024 1:00 PM EDT Appointment [facility] [address] [place] [address] Flue Blower: Ousmane Perez PA [address] [place] [address] Health Maintenance Due Date Last Done Comments HIV Screening 2002 Hepatitis C Screening 2002 Pap Smear 2002 1 Week WCC 2002 1 Month WCC 2002 2 Month WCC 01/07/2003 4 Month WCC 03/16/2003 6 Month WCC 05/15/2003 9 Month WCC 08/13/2003 12 Month WCC 11/23/2003 15 Month WCC 02/09/2004 18 Month WCC 05/09/2004 24 Month WCC 11/05/2004 30 Month WCC 03/11/2005 3 to 21 Year WCC 2005 Well Child Check 2005 Pneumococcal Vaccine: Pediat ani (0-5 Years) and At-Risk Patients (6-64 Years) (1 of 1 - PPSV23 or PCV20) 01/10/2011 11/15/2010, 11/15/2009, 07/12/2004, Additional history exists HPV Vaccines (1 - 3-dose series) 2017 Chlamydia Screening 04/14/2023 04/14/2022 COVID-19 Vaccine (3 - 2023-2 5 season) 2024 11/05/2020, 10/15/2020 Influenza Vaccine (#1) 2024 , 03/25/2018, 04/12/2017, Additional history exists Alcohol/Substance Use Screening 06/25/2024 Depression Screening and Follow-Up 06/25/2024 Social Drivers of Health Libert[place] ual Screening 06/25/2024 DTaP,Tdap,and Td Vaccines (7 - Td or Tdap) 12/11/2024 12/11/2014, 12/13/2006, 03/21/2004, Additional history exists RSV Vaccine (60+ years old a nd patients) (1 - 1-dose 75+ series) 2077 Hepatitis B Vaccines Completed 12/10/2003, 03/16/2003, 2002 Varicella Vaccines Completed 12/05/2007, 07/13/2004 Meningococcal Vaccine Completed 03/23/2021, 015 Procedures * Due to [place] state law, this organization might not be sharing negative HIV tests. Procedure Name Priority Date/Time Associated Diagnosis Comments PULMONARY FUNCTION TEST Routine 05/21/20 12:04 PM EST Dyspnea on exertion History of pneumonia, recurrent ALLERGEN RESPIRATORY PROFILE REGION I W/REFLEXES, IGE Routine 05/07/2024 3:52 PM EST Dyspnea on exertion History of pneumonia, recurrent CBC AUTO DIFFERENTIAL Routine 05/07/2024 3:52 PM EST Dyspnea on exertion History of pneumonia, recurrent IMMUNOGLOBULINS PANEL (IGG, IGA, IGM) Routine 05/07/2024 3:52 PM EST Dyspnea on exertion History of pneumonia, recurrent from Last 3 Months Results * Due to [place] state law, this organization might not be sharing negative HIV tests. * Pulmonary Function Test UNV; Spirometry; Methacholine inhalation challenge (RICH) Per Protocol; Dyspnea and Cough (05/21/2024 12:04 PM EST) FVC (L) 4.39 L [facility] FVC % Predicted 107 % [facility] FEV1 (L) 3.60 L [facility] FEV1 % Predicted 100 % [facility] FEV1/FVC Ratio 82 % [facility] 05/21/2024 12:0 4 PM EST Narrative [facility] - 05/21/2024 12:04 PM EST There is no ventilatory impairment demonstrated by spirometry. ??The findings are within normal limits. The negative methacholine challenge test (no significant decline in FEV1) indicates normal bronchial responsiveness and argues against a diagnosis of asthma. us Kenny Ye MD PFT ORDERABLES Final Re sult [facility] * (ABNORMAL) Allergen Respiratory Profile Region I w/ Reflexes, IgE (05/07/2024 3:52 PM EST) Pathologist [facility] Allergen Dermatophagoides pteronyssinus (D1) IgE 0.45(H) kU/L 05/08/2024 1:18 PM EST [facility] Allergen Dermatophagoides pteronyssinus Class 1 05/08/2024 1:18 PM EST [facility] Allergen Dermatophagoides farinae (D2) IgE 0.24(H) kU/L 05/08/2024 1:18 PM EST [facility] Allergen Dermatophagoides farniae Class 0/1 05/08/2024 1:18 PM EST [facility] Allergen Penicillium notatum (M1) IgE <0.10 kU/L 05/08/2024 1:18 PM EST [facility] Allergen Penicillium notatum Class 0 05/08/2024 1:18 PM EST [facility] Allergen Cladosporium herbarum (M2) IgE <0.10 kU/L 05/08/2024 1:18 PM EST [facility] Allergen Cladosporium herbarum Class 0 05/08/2024 1:18 PM EST [facility] Allergen Aspergillus fumigatus (M3) IgE <0.10 kU/L 05/08/2024 1:18 PM EST [facility] Allergen Aspergillus fumigatus Class 0 05/08/2024 1:18 PM EST [facility] Allergen Alternaria alternata (M6) IgE <0.10 kU/L 05/08/2024 1:18 PM EST [facility] Allergen Alternaria alternata Class 0 05/08/2024 1:18 PM EST [facility] Allergen Cat Dander (E1) IgE <0.10 kU/L 05/08/2024 1:18 PM EST [facility] Allergen Cat Dander Class 0 05/08/2024 1:18 PM EST [facility] Allergen Dog Dander (E5) IgE <0.10 kU/L 05/08/2024 1:18 PM EST [facility] Allergen Dog Dander Class 0 05/08/2024 1:18 PM EST [facility] Allergen Cockroach (I6) IgE <0.10 kU/L 05/08/2024 1:18 PM EST [facility] Allergen Cockroach Class 0 05/08/2024 1:18 PM EST [facility] Allergen Maple ([place]) (T1) IgE 0.20(H) kU/L 05/08/2024 1:18 PM EST [facility] Allergen Maple ([place]) (T1) IgE Class 0/1 05/08/2024 1:18 PM EST [facility] Allergen Birch (T3) IgE 0.75(H) kU/L 05/08/2024 1:18 PM EST [facility] Allergen Birch Class 2 05/08/2024 1:18 PM EST [facility] Allergen [place] (T6) IgE <0.10 kU/L 05/08/2024 1:18 PM EST [facility] Allergen [place] (T6) IgE Class 0 05/08/2024 1:18 PM EST [facility] Allergen [place] Tree (T10) IgE <0.10 kU/L 05/08/2024 1:18 PM EST [facility] Allergen [place] Tree Class 0 05/08/2024 1:18 PM EST [facility] Allergen [place] (T11) IgE <0.10 kU/L 05/08/2024 1:18 PM EST [facility] Allergen [place] (T11) IgE Class 0 05/08/2024 1:18 PM EST [facility] Allergen [place] (T14) IgE <0.10 kU/L 05/08/2024 1:18 PM EST [facility] Allergen [place] (T14) IgE Class 0 05/08/2024 1:18 PM EST [facility] Allergen White [place] (T15) IgE <0.10 kU/L 05/08/2024 1:18 PM EST [facility] Allergen White [place] Class 0 05/08/2024 1:18 PM EST [facility] Allergen [place] (T7) IgE 0.13(H) kU/L 05/08/2024 1:18 PM EST [facility] Allergen [place] (T7) IgE Class 0/1 05/08/2024 1:18 PM EST [facility] Allergen Elm (T8) IgE <0.10 kU/L 05/08/2024 1:18 PM EST [facility] Allergen Elm Class 0 2023 1:18 PM EST [facility] Allergen White [place] IgE <0.10 kU/L 05/08/2024 1:18 PM EST [facility] Allergen White [place] Class 0 05/08/2024 1:18 PM EST [facility] Allergen Bermuda Grass (G2) IgE <0.10 kU/L 05/08/2024 1:18 PM EST [facility] Allergen Bernuda Grass Class 0 05/08/2024 1:18 PM EST [facility] Allergen Vinay Grass (G6) IgE <0.10 kU/L 05/08/2024 1:18 PM EST [facility] Allergen Vinay Grass (G6) IgE Class 0 05/08/2024 1:18 PM EST [facility] Allergen Common Ragweed (Short) (W1) IgE <0.10 kU/L 05/08/2024 1:18 PM EST [facility] Allergen Common Ragweed (Short) (W1) IgE Class 0 05/08/2024 1:18 PM EST [facility] Allergen Rough Pigweed (W14) IgE <0.10 kU/L 05/08/2024 1:18 PM EST [facility] Allergen Rough Class 0 05/08/2024 1:18 PM EST [email or web address] Allergen Mugwort (W6) IgE <0.10 kU/L 05/08/2024 1:18 PM EST [email or web address] Allergen Mugwort Class 0 05/08/2024 1:18 PM EST [facility] Allergen Sheep [place] (W18) IgE <0.10 kU/L 05/08/2024 1:18 PM EST [facility] Allergen Sheep [place] (W18) IgE Class 0 05/08/2024 1:18 PM EST [email or web address] Allergen Mouse Urine Proteins (E72) IgE <0.10 kU/L 05/08/2024 1:18 PM EST [email or web address] Allergen Mouse Urine Proteins Class 0 05/08/2024 1:18 PM EST [email or web address] Immunoglobulin E 81 <KJ=535 kU/L 05/08/2024 1:18 PM EST [email or web address] Blood Structure of peripheral vein / Unknown Venipuncture / Unknown 05/07/2024 3:52 PM EST 05/07/2024 4:27 PM EST [facility] - 05/08/2024 1:18 PM EST Specific ?Level of Allergen IGE Class ?kU/L ? Specific IGE Antibody ----- ? --------- ?0 ?<0.10 ? Absent/Undetectable ??0/1 ?0.10-0.34 ? Very Low Level ??1 ?0.35-0.69 ? Low Level ??2 ?0.70-3.49 ? Moderate Level ??3 ?3.50-17.4 ? High Level ??4 ?17.5-49.9 ? Very High Level ??5 ?50-100 ?Very High Level ??6 ?>100 ?Very High Level ?? The clinical relevance of allergen results of 0.10-0.34 kU/L are undetermined and intended for specialist use. ?? Allergens denoted with a include results using one or more analyte specific reagents. In those cases, the test was developed and its analytical performance characteristics have been determined by [employer]. It has not been cleared or approved by the U.S. Food and Drug Administration. This assay has been validated pursuant to the CLIA regulations and is used for clinical purposes. Kenny Ye MD LAB BLOOD ORDERABLES Fin al Result Performing Organization Address [facility]/State/[facility] Co de Phone Number [address], [place] [address], [email or web address] [address], [place] [address], [place] [phone] * (ABNORMAL) CBC Auto Differential (05/07/2024 3:52 PM EST) WBC 11.4(H) 3.8 - 10.8 10*3/uL 05/07/2024 4:38 PM EST [facility] RBC 5.59 3.80 - 5.80 10*6/uL 05/07/2024 4:38 PM EST [facility] Hemoglobin 15.3 11.7 - 15.5 g/dL 05/07/2024 4:38 PM EST [facility] Hematocrit 45.3 35.0 - 50.0 % 05/07/2024 4:38 PM EST [facility] MCV 81.0 80.0 - 100.0 fL 05/07/2024 4:38 PM EST [facility] MCH 27.4 27.0 - 33.0 pg 05/07/2024 4:38 PM EST [facility] MCHC 33.8 32.0 - 36.0 g/dL 05/07/2024 4:38 PM EST [facility] RDW 12.4 11.0 - 15.0 % 05/07/2024 4:38 PM EST [facility] Platelets 345 140 - 400 10*3/uL 05/07/2024 4:38 PM EST [facility] MPV 9.5 7.5 - 12.5 fL 05/07/2024 4:38 PM EST [facility] Neutrophil % 56.2 % 05/07/2024 4:38 PM EST [facility] Immature Grans % 1.1(H) 0.0 - 0.9 % 05/07/2024 4:38 PM EST [facility] Lymphocyte % 30.0 % 05/07/2024 4:38 PM EST [facility] Monocyte % 8.8 % 05/07/2024 4:38 PM EST [facility] Eosinophil % 3.0 % 05/07/2024 4:38 PM EST [facility] Basophil % 0.9 % 05/07/2024 4:38 PM EST [facility] Neutrophil # 6.42 1.50 - 7.80 10*3/uL 05/07/2024 4:38 PM EST [facility] Immature Grans # 0.13(H) <=0.03 10*3/uL 05/07/2024 4:38 PM EST [employer] Lymphocyte # 3.40 0.85 - 3.90 10*3/uL 05/07/2024 4:38 PM EST [facility] Monocyte # 1.00(H) 0.20 - 0.95 10*3/uL 05/07/2024 4:38 PM EST [facility] Eosinophil # 0.30 0.02 - 0.50 10*3/uL 05/07/2024 4:38 PM EST [employer] [facility] Basophil # 0.10 0.00 - 0.20 10*3/uL 05/07/2024 4:38 PM EST [facility] nRBC % 0.0 /100 WBCs 05/07/2024 4:38 PM EST [facility] [employer] [facility] nRBC # <0.01 <0.01 10*3/uL 05/07/2024 4:38 PM EST [employer] [facility] Blood Structure of peripheral vein / Unknown Venipuncture / Unknown 05/07/2024 3:52 PM EST 05/07/2024 4:27 PM EST us Kenny Ye MD LAB BLOOD ORDERABLES Fin al Result [facility] [employer] [facility] [address] [place] [address], * Immunoglobulins Panel (IgG, IgA, IgM) (05/07/2024 3:52 PM EST) Immunoglobulin A 225 47 - 310 mg/dL 05/07/2024 9:50 PM EST [email or web address] IgG, Serum 1305 600 - 1640 mg/dL 05/07/2024 9:50 PM EST [email or web address] Immunoglobulin M 96 50 - 300 mg/dL 05/07/2024 9:50 PM EST [email or web address] Blood Structure of peripheral vein / Unknown Venipuncture / Unknown 05/07/2024 3:52 PM EST 05/07/2024 4:27 PM EST Narrative [facility] - 05/07/2024 9:50 PM EST [facility] Received Date: us Kenny Ye MD LAB BLOOD ORDERABLES Fin al Result [facility] [address] [facility] 3rd Floor, [place] [address], [place] [phone] [facility] [address] [facility] 3rd Floor, [place] [address], [place] [phone] from Last [address] [place] [address] [place] [id number] Care Teams General Office Assistant Relationship Specialty Start Date End Date Harlan Singleton [address] [place] [phone] PCP - General Pediatrics 03/24/24
--- OUTSIDE RECORDS SUMMARY | 2024-07-28 16:12 | XMS_ITS | Encounter Summary ---
Author Organization [employer] Address [address] [facility] [place], [place] [address] Care Team Providers Care Motion Picture Camera Lens Technician Name Role Phone Jennifer Negron NP Primary Care Provider [phone] Gena Lewis DRY CELL BATTERY ASSEMBLER Unavailable [phone] Raul Andrews MD Primary Care Provide r Reason for Visit * Reason Onset Date Comments Medication Question 10/26/2023 Care Coordination 10/26/2023 Encounter Details Date Type Department Care Team (Late st Contact Info) Description 10/26/2023 Telephone [facility] [address] [place] [address] Jennifer Negron NP [address] [facility] [address] [phone] Medication Question; Care Coordination Social History Tobacco Use Types Packs/Day Years Used Date Smoking Tobacco: Every Day Cigarettes Smokeless Tobacco: Never Alcohol Use Standard Drinks/Week Comments Not Currently 8 (1 standard drink = 0.6 oz pur e alcohol) Alcohol Answer Date Recorded Q1: How often do you have a drink containing alc ohol? 2 07/23/2023 Q2: How many drinks containi ng alcohol do you have on a typical day when you are drinking? 5 07/23/2023 Q3: How often do you have six or more drinks on one occasion? 3 07/23/2023 Depression Answer Date Recorded Patient Health Questionnaire-9 Score 13 07/06/2023 Patient Health Questionnaire-9 Score 13 07/06/2023 Last PHQ-9: Questionnaire Data Not on file 0 07/06/2023 Depression Answer Date Recorded Patient Health Questionnaire-2 Score 2 07/06/2023 Comments Unknown Sex and Gender Information Value Date Recorded Sex Assigned at Female 04/21/2022 3:32 PM EDT Legal Sex Female 3:32 PM EDT Gender Identity Transmasculine 07/24/2023 12:14 PM EST Sexual Orientation Queer 11/21/2022 11 :13 AM EDT documented as of this encounter Miscellaneous Notes * Telephone Encounter - Jennifer Headley LPN - 10/26/2023 11:24 AM EDT TRIAGE outreach to follow up on reported sxs and concerns related to Lexapro rx. (Managed by ) [facility] pt; Pt reached. Pt reports prescribed Lexapro late fall in 2022. Self discontinuation of medication in August and September. Pt reports stopped taking several medications but has recently resumed with the goal of being medication compliant. Pt reports resumed Lexapro late September. Pt reports with initial start of rx in 2022 began experiencing multiple episodes of watery diarrheadaily. Reviewed this with provider who recommended medical work up. Seen by PCP and all work up was unremarkable at that time per pt report. Pt reports diarrhea sxs did resolve when on break for Lexapro in August / September, however, immediately returned once restarted rx. Asks if should consider alternative medication. Pt reports 3-8 episodes daily. No blood or mucus to stool. Confirms nausea (mild) but denies vomiting. Denies headaches. Denies dizziness or lightheadedness. Denies fevers or chills. Denies abdominalpain. Pt denies any other notable symptoms stating otherwise feels to baseline. Pt has not had any other recent changes to diet, lifestyle, activity levels, hydration, medicationsor supplements. Will loop in team for review and recommendations. Discussed with pt team will follow up with pt once updates are available. Advised pt if any new/worsened sxs, any pain, vomiting, fevers, dizziness, lightheadedness, please notify teams. Will not schedule medical eval at this time and defer to recommendations. * Telephone Encounter - Alma Burris - 10/26/2023 10:23 AM EDT Pt would like a call back from RN regarding Lexapro and going to the bathroom a lot concerns. documented in this encounter Plan of Treatment Upcoming Encounters Date Type Department Care Team (Late st Contact Info) Description 08/06/2024 3:00 PM EST Telemedicine [facility] [address] [address] [address] [address] documented as of this encounter Visit Diagnoses Not on filedocumented in this encounter Additional Health Concerns Assessment Noted Time PHQ-9 Depression Total Score: 13 024 11:05 AM EST documented as of this encounter Care Teams Motion Picture Camera Lens Technician Relationship Specialty Start Date End Date Jennifer Negron NP PCP - General Family Medicine 02/07/22 12/08/23 Raul Andrews MD [address] [place] [id number] PCP - General Internal Medicine 12/09/23 Gena Lewis [facility] [address] [place] [phone] Digital Forensics Examiner Behavioral Health 07/12/22 documented as of this encounter
--- OUTSIDE RECORDS SUMMARY | 2024-07-28 16:12 | XMS_ITS | Encounter Summary ---
Author Organization [facility] Address [address] [place] [address] Care Team Providers Care Powerhouse Mechanic Helper Name Role Phone Harlan Singleton Primary Care Provider [phone] Reason for Referral * Consultation (Routine) - Pending Review Specialty Diagnoses / Procedures Referred By Hugo marin Referred To Contact Cardiology Diagnoses Tachycardia Josue Osman NP [address] [place] [address] Phone: tel: fax: [facility] Building 4th floor Cardiology Medicine [address] [place] [address] Phone: tel: fax: Referral ID Status Reason Start Date Expiration Date Visits Requested Visits Authorized [id number] Pending Review Specialty Services Required 07/09/2024 01/08/2026 6 6 Reason for Visit * Reason Onset Date Comments Cassi / mild chest pain 07/04/2024 Encounter Details Date Type Department Care Team (Late st Contact Info) Description 07/04/2024 Telephone [facility] [address] [place] [phone] Liquid Sugar Fortifier: Alexander Ye, Kenny Walter MD [address] [place] [phone] Cassi / mild chest pain Social History Tobacco Use Types Packs/Day Years Used Date Smoking Tobacco: Every Day Cigarettes Smokeless Tobacco: Never Comments Unknown Sex and Gender Information Value Date Recorded Sex Assigned at Female 03/24/2024 10:06 AM EDT Legal Sex Female 5:01 PM EDT Gender Identity Genderqueer 04/30/2024 10:45 AM EST Sexual Orientation Queer 04/30/2024 10 :45 AM EST documented as of this encounter Miscellaneous Notes * Telephone Encounter - Kenny Ye MD - 07/10/2024 9:56 AM EST Thank you! -Kenny * Addendum Note - Josue Osman NP - 07/09/2024 9:51 AM ESTAddended by: BRANDON OSMAN on: 07/09/2024 09:51 AM Modules accepted: Orders * Telephone Encounter - Josue Osman NP - 07/09/2024 9:37 AM EST 07/09/24 Today 105 at rest slightly better Yesterday at 130s with minimal activities. No appetite Went to [facility] clinic ([facility]) yesterday, did blood work and they may plan to do cardiac event monitor if it persisted. PCP at [facility], . Prefers to get cardiology referral through [facility] system. D-Dimer was negative on ED visit. [facility] cardiology referral, Order CPAP as patient has not heard back from ENT clinic and patient prefers to follow up here withus Patient will update us if any changes [facility] * Telephone Encounter - Sara Hayes - 07/07/2024 1:22 PM EST Pt calling back to day because he didn't hear back from anyone. At rest last night heart rate was 130. Most of the time it is 100. Pt can be reached at [phone] ------ Tachycardic for 2 week and has been feeling poorly Went to urgent care as HR was 120 at rest and BP 155/110-- then sent to [facility] ED- most of work up was negative including negative COVID. Then sent home Temp has been around 99.4F recently Just Nella is lying to fall asleep, HR goes over 130 and sometimes gets lightheaded. Denies shortness of breath but Nella breathes faster. Nella never had cardiac event monitor. Nella has Apple watch For the past 2 weeks, insanely fatigued. Stopped drinking any caffeine due to tachycardia. Now HR 106. Has no BP machine at home. Recent PSG on 06/06/24 (ordered by ENT clinic due to snoring, witnessed apnea)- no one called for this result review. AHI 5.8, REM AHI 25, neema 88%, Lowest HR 55, highest HR 117. ESS 2+2+2+1+2+1+3+0=13 Difficulty falling asleep. Wakes up feeling tired, Over the past year, gained 60 lbs, height 5'9''- BMI 40 Not on Concerta any more. Scheduled at [facility] ENT for VCD. Will update Dr. Ye and see what further test he would suggest. [facility] * Telephone Encounter - Sara Hayes - 07/04/2024 2:11 PM EST Pt calling wanted to let you know chest pain is getting a little worse, went to ED for tachycardia.For the last weak heart rate has been fast. Has had some kind of cold for the last 8 days. Pt can be reached at [phone]. documented in this encounter Plan of Treatment Upcoming Encounters Date Type Department Care Team (Late st Contact Info) Description 09/01/2024 1:00 PM EDT Office Visit [facility] Building 4th floor Cardiology Medicine [address] [place] [address] Liquid Sugar Fortifier: Yelena Curiel MD [address] [place] [phone] 09/01/2024 2:30 PM EDT Follow-Up [facility] [address] [place] [address] Liquid Sugar Fortifier: Josue Duran NP [address] [place] [address] 09/01/2024 3:00 PM EDT Follow-Up [facility] [address] [place] [address] Liquid Sugar Fortifier: Kenny Villarreal MD [address] [place] [address] 09/03/2024 1:00 PM EDT Appointment [facility] [address] [place] [address] Liquid Sugar Fortifier: Ousmane Perez PA [address] [place] [address] Scheduled Referrals Name Type Priority Associated Diagnoses Order Schedule Ambulatory referral to Cardiology Outpatient Referral Routine Tachycardia Expected: 07/09/2024, Expires: 01/06/2025 documented as of this encounter Visit Diagnoses Diagnosis Tachycardia- Primary Unspecified tachycardia documented in this encounter Care Teams Powerhouse Mechanic Helper Relationship Specialty Start Date End Date Harlan Singleton [address] [place] [address] PCP - General Pediatrics 03/24/24 documented as of this encounter
--- OUTSIDE RECORDS SUMMARY | 2024-07-28 16:12 | XMS_ITS | Encounter Summary ---
Author Organization [facility] Address [phone] Counts include 234 beds at the [facility] [place] [address] Care Team Providers Care Director Of District Office Name Role Phone Jennifer Negron NP Primary Care Provider [phone] Encounter Details Date Type Department Care Team (Latest Contact Info) Description 07/03/2024 5:50 PM EST - 07/03/2024 8:55 PM [facility] Hospital Encounter [facility], Emergency - Main Hospital [address] [place] [address] Laura Marquez, AIR HAMMER STRIPPER [address] [place] [address] [email or web address] Discharge Disposition: Home or Self Care Social History Tobacco Use Types Packs/Day Years [...] PM EDT documented as of this encounter Medications at Time of Discharge Medication Sig Dispensed Refills Start Date End Date albuterol 90 mcg/actuation inhaler Inhale 2 puffs into the lungs every 6 (six) hours as needed for wheezing or shortness of breath/dyspnea. 18 g 03/16/2024 buPROPion (WELLBUTRIN SR) 150 MG SR 12 hr tablet Take 1 tablet (150 mg total) by mouth 2 (two) times a day. 60 tablet 08/30/2018 clonazePAM (KLONOPIN) 1 MG tablet Take 1 mg by mouth 2 (two) times a day as needed for anxiety. cloNIDine HCL (CATAPRES) 0.1 MG tablet 01/26/2021 clotrimazole (LOTRIMIN) 1 % cream Apply topically 2 (two) times a day. 30 g 10/11/2023 docusate sodium (COLACE) 100 MG capsule Take 1 capsule (100 mg total) by mouth 2 (two) times a day. 60 capsule 08/30/2018 fluticasone propionate (FLONASE) 50 mcg/actuation nasal spray SPRAY 2 SPRAYS BY NASAL ROUTE DAILY 16 mL 12/05/2023 guanFACINE (TENEX) 1 MG tablet Take 1 mg by mouth 2 (two) times a day as needed. 12/06/2023 hydrOXYzine (VISTARIL) 50 MG capsule Take 50 mg by mouth. lamoTRIgine (LAMICTAL) 25 MG IMMEDIATE release tablet lidocaine 2 % Soln Use as directed 15 mL in the mouth or throat every 3 (three) hours as needed. Max 8 times in 24 hours 300 mL 12/15/2023 lisdexamfetamine (VYVANSE) 30 MG capsule Take 30 mg by mouth every morning. lurasidone (LATUDA) 40 mg Tab Take 1 tablet (40 mg total) by mouth nightly at bedtime. 30 tablet 08/30/2018 lurasidone (LATUDA) 80 mg tablet Take 80 mg by mouth. 12/06/2023 metFORMIN (GLUCOPHAGE) 500 MG tablet Take 1 tablet (500 mg total) by mouth every morning. 30 tablet 08/31/2018 methylphenidate HCl 27 MG ER tablet methylphenidate HCl 36 MG ER tablet Take 36 mg by mouth. 12/06/2023 OXcarbazepine (TRILEPTAL) 150 MG tablet Take 150 mg by mouth 2 (two) times a day. sertraline (ZOLOFT) 50 MG tablet Take 50 mg by mouth daily. testosterone cypionate (DEPO-TESTOTERONE) 200 mg/mL injection topiramate (TOPAMAX) 25 MG tablet Take 2 tablets by mouth nightly at bedtime. 11/14/2022 vancomycin (VANCOCIN) 125 MG capsule 06/01/2023 venlafaxine (EFFEXOR-XR) 37.5 MG 24 hr capsule Take 5 capsules (187.5 mg total) by mouth daily. 150 capsule 08/31/2018 documented as of this encounter Plan of Treatment Upcoming Encounters Date Type Department Care Team (Late st Contact Info) Description 10/14/2024 9:45 AM EDT Office Visit [address] [address] Marilynn Whitley, NII [address] [place] [address] Rosy Dawkins, PT [address] [place] [address] 10/21/2024 9:45 AM EDT Office Visit [address] [address] Marilynn Whitley, NII [address] [place] [address] Rosy Dawkins, PT [address] [place] [address] 10/28/2024 9:45 AM EDT Office Visit [facility] [address] [place] [address] Marilynn Whitley, BEVELER [address] [place] [address] Rosy Dawkins, PT [address] [place] [address] 11/04/2024 9:45 AM EDT Office Visit [facility] [address] [place] [address] Marilynn Whitley, BEVELER [address] [place] [address] Rosy Dawkins, PT [address] [place] [address] 11/11/2024 9:45 AM EDT Office Visit [address] [address] Marilynn Whitley, BEVELER [address] [place] [address] Rosy Dawkins, PT [address] [place] [address] 11/18/2024 9:45 AM EDT Office Visit [address] [address] Marilynn Whitley, BEVELER [address] [place] [address] Rosy Dawkins, PT [address] [place] [address] 11/25/2024 9:45 AM EDT Office Visit [address] [address] Marilynn Whitley, BEVELER [address] [place] [address] Rosy Dawkins, PT [address] [place] [address] 12/02/2024 9:45 AM EDT Office Visit [facility] [address] [place] [address] Marilynn Whitley, NII [address] [place] [address] Rosy Dawkins, PT [address] [place] [address] documented as of this encounter Procedures Procedure Name Priority Date/Time Associated Diagnosis Comments XR CHEST PA AND LATERAL 2 VIEWS Urgent/patient waiting 07/03/2024 5:58 PM EST Shortness of breath documented in this encounter Results * XR CHEST PA AND LATERAL 2 VIEWS (07/03/2024 5:58 PM EST) Anatomical Region Laterality Modality Chest Computed Radiogr aphy 07/03/2024 6:16 PM EST Impressions 07/03/2024 6:20 PM EST No acute findings. Narrative 07/03/2024 6:20 PM EST XR CHEST PA AND LATERAL 2 VIEWS Referring clinician's provided indication for this examination in [facility]: Cough COMPARISON: XR CHEST PA AND LATERAL [...] clinician's provided indication for this examination in [facility]:Cough COMPARISON: XR CHEST PA AND LATERAL 2 VIEWS FINDINGS: Devices/Tubes/Lines: None. Lungs: No focal consolidation or pulmonary edema. Pleura: Similar mild blunting of the right costophrenic sulcus couldreflect pleural thickening. Heart/Mediastinum: Normal heart and mediastinum. Bones/Soft Tissues: No significant skeletal abnormality. IMPRESSION: No acute findings. Laura Marquez CNP IMG XR CHEST documented in this encounter Visit Diagnoses Not on filedocumented in this encounter Additional Health Concerns Infection Onset Date Last Indicated Resolved Time CoV-Risk 07/03/2024 07/03/2024 07/14/2024 1:22 AM EST documented as of this encounter Care Teams Director Of District Office Relationship Specialty Start Date End Date Jennifer Negron NP [address] [facility] [address] [place] [address] PCP - General Nurse Practitioner 06/26/23 documented as of this encounter Additional Source Comments The information contained in this document represents components of the legal health record. It is not the complete legal health record.[facility]
--- OUTSIDE RECORDS SUMMARY | 2024-07-28 16:12 | XMS_ITS | Encounter Summary ---
Author Organization [facility] Address [phone] [facility] [place] [address] Care Team Providers Care Video Control Operator Name Role Phone Jennifer Negron NP Primary Care Provider [phone] Reason for Visit * Reason Comments Chest Pain Tachycardia Encounter Details Date Type Department Care Team ([facility] st Contact Info) Description 07/03/2024 8:56 PM EST - 07/04/2024 12:17 AM EST Emergency [facility] [address] [place] [address] Trevor Alvarado MD [address] [place] [address] [email or web address] Discharge Disposition: Home or Self Care Social [...] Sign Reading Time Taken Comments Blood Pressure 127/90 07/04/2024 12:00 AM EST Pulse 98 07/04/2024 12:00 AM EST Temperature 36.6 ??C (97.9 ??F) 07/03/2024 9:35 PM ES T Respiratory Rate 20 07/04/2024 12:00 AM EST Oxygen Saturation 96% 07/04/2024 12:00 AM EST Inhaled Oxygen Concentration - - Weight - - Height - - Body Mass Index - - documented in this encounter Discharge Instructions * Discharge Instructions* Trevor Alvarado MD - 07/04/2024 12:05 AM EST I am happy to report that your workup in the ED tonight does not show evidence of an emergency condition. Your tests were negative for evidence of blood clots or more significant systemic infection. Your description of your symptoms is consistent with a viral syndrome. Will be very important that you do your best to stay well-hydrated at all times, take Tylenol and/or ibuprofen as needed to help with your symptoms. I expect that you will improve over the next week. If at any point you develop worsening symptoms or notice any concerning changes then you can return to the emergency department anytime for reevaluation. Otherwise follow-up closely with your PCP. * Attachments The following attachments cannot be sent through Care Everywhere. * Costochondritis (Mauritanian) * Chest Pain (Mauritanian) * Palpitations (Mauritanian) * Viral Infections (Mauritanian) * Health benefits of Quitting Smoking (PCOI) (Mauritanian) * Quit Smoking/Vaping Resources (PCOI) (Mauritanian) documented in this encounter Medications at Time of Discharge [...] capsule 08/31/2018 documented as of this encounter ED Notes * Shawn Aguayo RN - 07/04/2024 12:16 AM EST ED Discharge Nursing Note Discharge instructions reviewed and questions answered if asked. Patient/family understand criteriato return to ED and has been urged to do so if the circumstances arise. Patient ambulated out of EDwith even steady gait. * Shawn Aguayo RN - 07/03/2024 10:34 PM EST ED Nursing Progress Note Pt cleared for pi fluids * Shawn Aguayo RN - 07/03/2024 9:36 PM EST ED Nursing Progress Note Pt reporting lightheadedness. Increased rr noted. * Shawn Aguayo RN - 07/03/2024 9:20 PM EST ED Nursing Progress Note Pt reports slight decrease in pain. Possible family cardiac hx. Axox3 and ambulatory. * Jevon Dejesus RN - 07/03/2024 7:16 PM EST URI symptoms for 8 days, 7 hours of chest pain, temp at home 100.1, denies cough, well-appearing * Trevor Alvarado MD - 07/03/2024 7:00 PM EST Chief Complaint Chief Complaint Patient presents with Chest Pain Tachycardia History of Present Illness The patient, Jasmin Smith,is a 23 y.o. adult who presents for evaluation of Chest Pain and Tachycardia Patient is a transgender male sent from the urgent care for evaluation of dyspnea and chest discomfort as well as flulike symptoms over the past week. Describes body aches, chills, sore ribs, nausea.There is constant tightness to the middle of the chest with sharp exacerbations. Describes headacheand fatigue as well as brain fog, as well as rapid palpitations when standing first noticed over the weekend. No leg swelling. Prior to onset of symptoms was in close proximity with someone who subsequently came down with the flu. Has history of pneumonia. Is currently being worked up by pulmonary after developing some chest pain in this past fall with activity, has been diagnosed with sleep apnea. Currently still smoking about 10 cigarettes a day but has not had any in the past 3 days. Stopped testosterone therapy in October 2023. Is here with boyfriendat bedside. Unless otherwise specified, I have reviewed and agree with the triage and nursing notes. ROS A ten point review of systems was negative except what was noted in the HPI. Review of Systems Past Medical History Past Medical History: Diagnosis Date PCOS (polycystic ovarian syndrome) Past Surgical History Past Surgical History: Procedure Laterality Date LUNG SURGERY age 8 induce coma for lung infection Home Medications Prior to Admission medications Medication Sig albuterol 90 mcg/actuation inhaler 2 puffs, Inhalation, Every 6 hours PRN buPROPion (WELLBUTRIN SR) 150 MG SR 12 hr tablet 150 mg, Oral, 2 times daily clonazePAM (KLONOPIN) 1 MG tablet 1 mg, Oral, 2 times daily PRN cloNIDine HCL (CATAPRES) 0.1 MG tablet clotrimazole (LOTRIMIN) 1 % cream Topical, 2 times daily docusate sodium (COLACE) 100 MG capsule 100 mg, Oral, 2 times daily fluticasone propionate (FLONASE) 50 mcg/actuation nasal spray 2 sprays, Nasal, Daily guanFACINE (TENEX) 1 MG tablet 1 mg, Oral, 2 times daily PRN hydrOXYzine (VISTARIL) 50 MG capsule 50 mg, Oral lamoTRIgine (LAMICTAL) 25 MG IMMEDIATE release tablet lidocaine 2 % Soln 15 mL, Mouth/Throat, Every 3 hours PRN, Max 8 times in 24 hours lisdexamfetamine (VYVANSE) 30 MG capsule 30 mg, Oral, Every morning lurasidone (LATUDA) 40 mg Tab 40 mg, Oral, Nightly Patient taking differently: Take 80 mg by mouth nightly at bedtime. lurasidone (LATUDA) 80 mg tablet 80 mg, Oral metFORMIN (GLUCOPHAGE) 500 MG tablet 500 mg, Oral, Every morning methylphenidate HCl 27 MG ER tablet methylphenidate HCl 36 MG ER tablet 36 mg, Oral OXcarbazepine (TRILEPTAL) 150 MG tablet 150 mg, Oral, 2 times daily sertraline (ZOLOFT) 50 MG tablet 50 mg, Oral, Daily testosterone cypionate (DEPO-TESTOTERONE) 200 mg/mL injection topiramate (TOPAMAX) 25 MG tablet 2 tablets, Oral, Nightly vancomycin (VANCOCIN) 125 MG capsule venlafaxine (EFFEXOR-XR) 37.5 MG 24 hr capsule 187.5 mg, Oral, Daily Allergies Allergies Allergen Reactions Amoxicillin Hives Furosemide Other (See Comments) and Unknown Keflex (Cephalexin) Unknown Escitalopram Other (See Comments) Bowel issues Social and Family History Social History Tobacco Use Smoking status: Some Days Types: Cigarettes Smokeless tobacco: Never Substance Use Topics Alcohol use: Yes Comment: Occassionally Social History Substance and Sexual Activity Drug Use Yes Types: Marijuana Comment: daily Family History Problem Relation Age of Onset Liver disease Mother Hypertension Maternal Grandmother Alcohol abuse Paternal Grandmother Diabetes Paternal Grandfather Diabetes Paternal Uncle Physical Exam Vital Signs: ED Triage Vitals Encounter Vitals Group BP 07/03/24 1917 (!) 143/100 Systolic BP Percentile -- Diastolic BP Percentile -- Heart Rate 07/03/241916 (!) 112 Respiratory Rate 07/03/241916 18 Temperature 07/03/241916 37 ??C (98.6 ??F) Temp Source 07/03/242107 Oral SpO2 07/03/241916 98 % Weight -- Height -- Head Circumference -- Peak Flow -- Pain Score -- Pain Loc -- Pain Education -- Exclude from Growth Chart -- Physical Exam Vitals and nursing note reviewed. Constitutional: General: He is not in acute distress. Appearance: He is not diaphoretic. Cardiovascular: Rate and Rhythm: Normal rate and regular rhythm. Heart sounds: Normal heart sounds. Pulmonary: Effort: Pulmonary effort is normal. Breath sounds: Normal breath sounds. Chest: Chest wall: Tenderness present. Musculoskeletal: General: Normal range of motion. Cervical back: Neck supple. Right lower leg: No edema. Left lower leg: No edema. Skin: General: Skin is warm and dry. Neurological: General: No focal deficit present. Mental Status: He is alert. Laboratory Testing Results for orders placed or performed during the hospital encounter of 07/03/24 ECG 12-LEAD Result Value Ref Range Ventricular Rate EKG/MIN 96 BPM Atrial Rate 96 BPM FL Interval 160 ms QRS Duration 80 ms QT Interval 376 ms QTC Interval 475 ms P Ford 26 degrees R Wave Ford 134 degrees T Wave Ford 13 degrees HCG, serum qualitative Specimen: Blood Result Value Ref Range HCG, QUALITATIVE Negative Negative IU/L D-dimer Specimen: Blood Result Value Ref Range D-DIMER <215 <500 ng/mL FEU Lipase Specimen: Blood Result Value Ref Range LIPASE 59 16 - 63 U/L LFTs (hepatic panel) Specimen: Blood Result Value Ref Range ALKALINE PHOSPHATASE 57 39 - 117 U/L TOTAL BILIRUBIN 0.5 0.0 - 1.2 mg/dL DIRECT BILIRUBIN <0.2 0 - 0.3 mg/dL Bilirubin (Indirect) NOT CALCULATED 0 - 1.5 mg/dL AST 16 0 - 37 U/L ALT 22 0 - 40 U/L TOTAL PROTEIN 7.2 6.5 - 8.0 g/dL ALBUMIN 4.4 3.9 - 4.8 g/dL GLOBULIN 2.8 1 - 4.8 g/dL A/G Ratio 1.57 1.00 - 4.80 RATIO Basic metabolic panel Specimen: Blood Result Value Ref Range SODIUM 140 133 - 146 mmol/L CHLORIDE 103 96 - 108 mmol/L POTASSIUM 3.8 3.3 - 5.1 mmol/L CO2 23 21 - 35 mmol/L BUN 9 6 - 19 mg/dL CREATININE 0.80 0.5 - 1.5 mg/dL GLUCOSE 92 70 - 99 mg/dL CALCIUM 10.3 8.4 - 10.3 mg/dL EGFR 107 >59 mL/min/1.73m2 ANION GAP 18 10 - 20 mmol/L CBC and differential Specimen: Blood Result Value Ref Range WBC 11.74 (H) 4.00 - 11.00 K/uL RBC 5.42 (H) 4.00 - 5.20 M/uL HGB 15.1 12.0 - 16.0 g/dL HCT 43.6 36.0 - 46.0 % PLT 243 150 - 450 K/uL MCV 80.4 80.0 - 100.0 fL MCH 27.9 27.0 - 31.0 pg MCHC 34.6 32.0 - 36.0 g/dL RDW 12.4 11.5 - 14.5 % MPV 9.7 8.4 - 12.0 fL NRBC 0.00 0.00 /100 WBCs ABSOLUTE NRBC 0.00 0.00 K/uL DIFF METHOD Auto NEUTS 54.5 48.0 - 76.0 % LYMPHS 34.9 18.0 - 41.0 % MONOS 8.1 4.0 - 11.0 % EOS 1.4 0.0 - 5.0 % BASOS 0.7 0.0 - 1.5 % Granulocytes, immature (%) 0.4 0.0 - 0.9 % ABSOLUTE NEUTS 6.40 1.92 - 7.60 K/uL ABSOLUTE LYMPHS 4.10 0.72 - 4.10 K/uL ABSOLUTE MONOS 0.95 0.16 - 1.10 K/uL ABSOLUTE EOS 0.16 0.00 - 0.50 K/uL ABSOLUTE BASOS 0.08 0.00 - 0.15 K/uL Granulocytes, immature 0.05 0.00 - 0.09 K/uL COVID Pandemic Respiratory Viral Order (PRO) Specimen: Nasopharyngeal swab; Other Result Value Ref Range Test Ordered COVID, Flu has been ordered Specimen Source/Description NASOPHARYNGEAL SWAB Influenza A PCR Not Detected Not Detected Influenza B PCR Not Detected Not Detected SARS-CoV 2 (COVID-19) PCR Not Detected Not Detected Radiology Testing No orders to display ED Medication from 07/03/2024 1843 to 07/07/2024 1733 Date/Time Order Dose Route Action Action by Comments 07/03/2024 2236 EST acetaminophen (TYLENOL) tablet 975 mg 975 mg Oral Given Shawn Aguayo RN -- [facility] Attestation: Trevor Berg MD, have seen this patient primarily. Category 1: Tests, Studies or Independent Historians: Prior Data Reviewed: Prior notes reviewed. Urgent care note. Category 2 and 3: Independent Interpretation of Tests, Consideration of Tests, or External Discussion of Results: Labs: Laboratory studies were interpreted. Radiology: Radiology result was discussed with external provider. ECG: EKG studies were independently interpreted. Rhythm: sinus rhythm T Wave Inversions: No ST Depressions: No ST Elevations: No Clinical Impressions as of 07/07/24 1733 Viral syndrome Costochondritis Palpitations Tobacco dependence due to cigarettes Critical Care Time: 0 minutes Clinical Impression Diagnosis Description Comment Final diagnoses Viral syndrome Viral syndrome -- Costochondritis Costochondritis -- Palpitations Palpitations -- Tobacco dependence due to cigarettes Tobacco dependence due to cigarettes -- Disposition: Home Trevor Alvarado MD 07/07/24 1734 documented in this encounter Plan of Treatment Upcoming Encounters Date Type Department Care Team (Late st Contact Info) Description 10/14/2024 9:45 AM EDT Office Visit [facility] [address] [place] [address] Marilynn Whitley, NII [address] [place] [address] Rosy Dawkins, PT [address] [place] [address] 10/21/2024 9:45 AM EDT Office Visit [facility] [address] [place] [address] Marilynn Whitley, NII [address] [place] [address] Rosy Dawkins, PT [address] [place] [address] 10/28/2024 9:45 AM EDT Office Visit [facility] [address] [place] [address] Marilynn Whitley, CRIMINAL INTELLIGENCE ANALYST [address] [place] [address] Rosy Dawkins, PT [address] [place] [address] 11/04/2024 9:45 AM EDT Office Visit [facility] [address] [place] [address] Marilynn Whitley, CRIMINAL INTELLIGENCE ANALYST [facility] [place] [address] Rosy Dawkins, PT [address] [place] [address] 11/11/2024 9:45 AM EDT Office Visit [address] [address] Marilynn Whitley, CRIMINAL INTELLIGENCE ANALYST [facility] [place] [address] Rosy Dawkins, PT [address] [place] [address] 11/18/2024 9:45 AM EDT Office Visit [address] [address] Marilynn Whitley, CRIMINAL INTELLIGENCE ANALYST [facility] [place] [address] Rosy Dawkins, PT [address] [place] [address] 11/25/2024 9:45 AM EDT Office Visit [address] [address] Marilynn Whitley, CRIMINAL INTELLIGENCE ANALYST [facility] [place] [address] Rosy Dawkins, PT [address] [place] [address] 12/02/2024 9:45 AM EDT Office Visit [facility] [address] [place] [address] Marilynn Whitley, CRIMINAL INTELLIGENCE ANALYST [address] [place] [address] Rosy Dawkins, PT [address] [place] [address] [email or web address] documented as of this encounter Procedures Procedure Name Priority Date/Time Associated Diagnosis Comments HCG, SERUM QUALITATIVE STAT 07/03/2024 11:06 PM EST LFTS (HEPATIC PANEL) STAT 07/03/2024 11:06 PM EST D-DIMER STAT 07/03/2024 11:06 PM EST CBC AND DIFFERENTIAL STAT 07/03/2024 11:06 PM EST LIPASE STAT 07/03/2024 11:06 PM EST BASIC METABOLIC PANEL STAT 07/03/2024 11:06 PM EST ECG 12-LEAD STAT 07/03/2024 9:38 PM EST COVID PANDEMIC RESPIRATORY VIRAL ORDER (PRO) STAT 07/03/2024 8:56 PM EST documented in this encounter Results * HCG, serum qualitative (07/03/2024 11:06 PM EST) HCG, QUALITATIVE Negative Negative IU/L [facility] Blood 07/03/2024 11:0 6 PM EST 07/03/2024 11:10 PM EST Trevor Alvarado MD LAB BLOOD ORDERABL ES [facility] [address] [place] [address] * D-dimer (07/03/2024 11:06 PM EST) D-DIMER <215 <500 ng/mL FEU [facility] Comment:In patients with low to moderate pre-test probability scores for VTE (PE or DVT), a D-Dimer cut-off less than 500 ng/mL (FEU) has a negative predictive value (NPV) of 97 to 100%. Blood 07/03/2024 11:0 6 PM EST 07/03/2024 11:10 PM EST Trevro Alvarado MD LAB BLOOD ORDERABL ES Performing Organization Address City/[facility] Co de Phone Number [address] [address] * Lipase (07/03/2024 11:06 PM EST) LIPASE 59 16 - 63 U/L [facility] Blood 07/03/2024 11:0 6 PM EST 07/03/2024 11:10 PM EST Trevor Alvarado MD LAB BLOOD ORDERABL ES Performing Organization Address City/[facility] Co de Phone Number [address] [address] * LFTs (hepatic panel) (07/03/2024 11:06 PM EST) ALKALINE PHOSPHATASE 57 39 - 117 U/L [facility] TOTAL BILIRUBIN 0.5 0.0 - 1.2 mg/dL [facility] DIRECT BILIRUBIN <0.2 0 - 0.3 mg/dL [facility] Bilirubin (Indirect) NOT CALCULATED 0 - 1.5 mg/dL [facility] AST 16 0 - 37 U/L [facility] ALT 22 0 - 40 U/L [facility] TOTAL PROTEIN 7.2 6.5 - 8.0 g/dL [facility] ALBUMIN 4.4 3.9 - 4.8 g/dL [facility] GLOBULIN 2.8 1 - 4.8 g/dL [facility] A/G Ratio 1.57 1.00 - 4.80 RATIO [facility] Blood 07/03/2024 11:0 6 PM EST 07/03/2024 11:10 PM EST Trevor Alvarado MD LAB BLOOD ORDERABL ES Performing Organization Address [facility]/ZIP Co de Phone Number [address] [address] * Basic metabolic panel (07/03/2024 11:06 PM EST) SODIUM 140 133 - 146 mmol/L [facility] CHLORIDE 103 96 - 108 mmol/L [facility] POTASSIUM 3.8 3.3 - 5.1 mmol/L [facility] CO2 23 21 - 35 mmol/L [facility] BUN 9 6 - 19 mg/dL [facility] CREATININE 0.80 0.5 - 1.5 mg/dL [facility] GLUCOSE 92 70 - 99 mg/dL [facility] CALCIUM 10.3 8.4 - 10.3 mg/dL [facility] EGFR 107 >59 mL/min/1.7 3m2 [facility] Comment:Estimated glomerular filtration rate calculated using the CKD-EPI refit equation. ANION GAP 18 10 - 20 mmol/L [facility] Blood 07/03/2024 11:0 6 PM EST 07/03/2024 11:10 PM EST Trevor Alvarado MD LAB BLOOD ORDERABL ES [address] [address] * (ABNORMAL) CBC and differential (07/03/2024 11:06 PM EST) WBC 11.74(H) 4.00 - 11.00 K/uL [facility] RBC 5.42(H) 4.00 - 5.20 M/uL [facility] HGB 15.1 12.0 - 16.0 g/dL [facility] HCT 43.6 36.0 - 46.0 % [facility] PLT 243 150 - 450 K/uL [facility] MCV 80.4 80.0 - 100.0 fL [facility] MCH 27.9 27.0 - 31.0 pg [facility] MCHC 34.6 32.0 - 36.0 g/dL [facility] RDW 12.4 11.5 - 14.5 % [facility] MPV 9.7 8.4 - 12.0 fL [facility] NRBC 0.00 0.00 /100 WBCs [facility] ABSOLUTE NRBC 0.00 0.00 K/uL [facility] DIFF METHOD Auto [facility] NEUTS 54.5 48.0 - 76.0 % [facility] LYMPHS 34.9 18.0 - 41.0 % [facility] MONOS 8.1 4.0 - 11.0 % [facility] EOS 1.4 0.0 - 5.0 % [facility] BASOS 0.7 0.0 - 1.5 % [facility] Granulocytes, immature (%) 0.4 0.0 - 0.9 % [facility] ABSOLUTE NEUTS 6.40 1.92 - 7.60 K/uL [facility] ABSOLUTE LYMPHS 4.10 0.72 - 4.10 K/uL [facility] ABSOLUTE MONOS 0.95 0.16 - 1.10 K/uL [facility] ABSOLUTE EOS 0.16 0.00 - 0.50 K/uL [facility] ABSOLUTE BASOS 0.08 0.00 - 0.15 K/uL [facility] Granulocytes, immature 0.05 0.00 - 0.09 K/uL [facility] Blood 07/03/2024 11:0 6 PM EST 07/03/2024 11:10 PM EST Trevor Alvarado MD LAB BLOOD ORDERABL ES [address] [address] * ECG 12-LEAD (07/03/2024 9:38 PM EST) Ventricular Rate EKG/MIN 96 BPM [facility] Atrial Rate 96 BPM [facility] FL Interval 160 ms [facility] QRS Duration 80 ms [facility] QT Interval 376 ms [facility] QTC Interval 475 ms [facility] P Ford 26 degrees [facility] R Wave Ford 134 degrees [facility] T Wave Ford 13 degrees [facility] 07/03/2024 9:38 PM EST 07/04/2024 2:26 PM EST Narrative [facility] - 07/04/2024 2:26 PM EST Normal sinus rhythm Right axis deviation Septal infarct , age undetermined Abnormal ECG When compared with ECG of 16-Mar-2024 22:12, Septal infarct is now Present Confirmed by Willie LUNA ([id number]) on 07/04/2024 2:26:50 PM Trevor Alvarado MD ECG ORDERABLES [facility] * COVID Pandemic Respiratory Viral Order (PRO) (07/03/2024 8:56 PM EST) Test Ordered COVID, Flu has been ordered [facility] Specimen Source/Descriptio n NASOPHARYNGEAL SWAB [facility] Influenza A PCR Not Detected Not Detected [facility] Influenza B PCR Not Detected Not Detected [facility] SARS-CoV 2 (COVID-19) PCR Not Detected Not Detected [facility] Comment: SARS-CoV-2 not detected Negative results do not preclude SARS-CoV-2 infection and should not be used as the sole basis for patient management decisions. Negative results must be combined with clinical observations, patient history, and epidemiological information. Other (Nasopharyngeal swab) 07/03/2024 8:56 PM EST 07/03/2024 9:05 PM EST Trevor Alvarado MD BODY FLUIDS AND ST OOLS ORDERABLES [facility] [address] [place] [address] documented in this encounter Visit Diagnoses Diagnosis Viral syndrome- Primary Unspecified viral infection, in conditions classified elsewhere and of unspecified site Costochondritis Tietze's disease Palpitations Tobacco dependence due to cigarettes documented in this encounter Administered Medications Inactive Administered Medications - up to 3 most recent administrations Medication Order MAR Action Action Date Dose Rate Site acetaminophen (TYLENOL) tablet 975 mg 975 mg, Oral, Once, On Alejandrina 07/03/24 at 2245, For 1 dose Given 07/03/2024 10:36 PM EST 975 mg documented in this encounter Active and Recently Administered Medications Times are shown in EST. Scheduled Medication Order 07/02/2024 07/03/2024 07/04/2024 acetaminophen (TYLENOL) tablet 975 mg (COMPLETED) 975 mg, Oral, Once, On Alejandrina 07/03/24 at 2245, For 1 dose 2236 (Given - Provider: Neftali Aguayo RN) documented in this encounter Additional Health Concerns Infection Onset Date Last Indicated Resolved Time CoV-Risk 07/03/2024 07/03/2024 07/14/2024 1:22 AM EST documented as of this encounter Care Teams Video Control Operator Relationship Specialty Start Date End Date Jennifer Negron NP [address] [address] PCP - General Nurse Practitioner 06/26/23 documented as of this encounter Additional Source Comments The information contained in this document represents components of the legal health record. It is not the complete legal health record.[facility]
--- OUTSIDE RECORDS SUMMARY | 2024-07-28 16:12 | XMS_ITS | Referral Summary ---
Author Organization [facility] Address [address] [place] [address] Care Team Providers Care Weigher And Grader Name Role Phone Garretkylie Harlan Kira Primary Care Provider [phone] Encounters Date Type Department Care Team Description 07/09/2024 Paraturehart Message [facility] [address] [place] [phone] Welder Apprentice Gas: Josue Duran NP obstructive sleep apnea and CPAP 07/09/2024 Orders Only [facility] [address] [place] [phone] Welder Apprentice Gas: Josue Duran NP VANNESSA (obstructive sleep apnea) (Primary Dx) 07/04/2024 Telephone [facility] [address] [address] Welder Apprentice Gas: Kenny Villarreal MD Alpert / mild chest pain 05/26/2024 Orders Only [facility] [address] [place] [address] Welder Apprentice Gas: Kenny Villarreal MD Dyspnea on exertion (Primary Dx); Chronic cough 05/26/2024 Telephone [facility] [address] [place] [phone] Welder Apprentice Gas: Kenny Villarreal MD Alpert / Next steps 05/21/2024 11:40 AM EST - 05/21/2024 11:59 PM EST Hospital Encounter [facility] [address] [place] [address] Kenny Ye MD Dyspnea on exertion; History of pneumonia, recurrent Discharge Disposition: Home or Self Care (01) 05/19/2024 Telephone [facility] [address] [place] [address] Welder Apprentice Gas: Kenny Villarreal MD Alpert / Results of lab work 05/07/2024 3:00 PM EST Office Visit [facility] [address] [address] Welder Apprentice Gas: Kenny Villarreal MD Dyspnea on exertion (Primary Dx); History of pneumonia, recurrent from Last 3 Months Medications Hospital, Clinic, or Other Facility Administered Medication Ordered Dose Route Frequency Start Date End Date Status methacholine nebulizer solution 1 kit 1 kit inhalation 5 times daily as needed 05/21/2024 Active Social History Tobacco Use Types Packs/Day Years [...] Description 09/01/2024 1:00 PM EDT Office Visit [facility] Building 4th floor Cardiology Medicine [address] [place] [phone] Welder Apprentice Gas: Yelena Curiel MD [address] [place] [phone] 09/01/2024 2:30 PM EDT Follow-Up [facility] [address] [place] [address] Welder Apprentice Gas: Josue Duran, STEAM FINISHER [address] [place] [phone] 09/01/2024 3:00 PM EDT Follow-Up [facility] [address] [place] [phone] Welder Apprentice Gas: Kenny Villarreal MD [address] [place] [phone] 09/03/2024 1:00 PM EDT Appointment [facility] [address] [place] [phone] Welder Apprentice Gas: Ousmane Perez PA [address] [place] [phone] Procedures * Due to [place] state law, this organization might not be [...] Last 3 Months Results * Due to [place] state law, this organization might not be [...] w/ Reflexes, IgE (05/07/2024 3:52 PM EST) Allergen Dermatophagoides pteronyssinus (D1) IgE 0.45(H) kU/L 05/08/2024 1:18 PM EST [facility] Allergen Dermatophagoides pteronyssinus Class 1 05/08/2024 1:18 PM EST [facility] Allergen Dermatophagoides farinae (D2) IgE 0.24(H) kU/L 05/08/2024 1:18 PM EST [facility] Allergen Dermatophagoides farniae Class 0/1 05/08/2024 1:18 PM EST [facility] Allergen Penicillium notatum (M1) IgE <0.10 kU/L 05/08/2024 1:18 PM EST [facility] Allergen Penicillium notatum Class 0 05/08/2024 1:18 PM EST [facility] Allergen Cladosporium herbarum (M2) IgE <0.10 kU/L 05/08/2024 1:18 PM EST [facility] Allergen Cladosporium herbarum Class 0 05/08/2024 1:18 PM EST [facility] Allergen Aspergillus fumigatus (M3) IgE <0.10 kU/L 05/08/2024 1:18 PM EST [facility] Allergen Aspergillus fumigatus Class 0 05/08/2024 1:18 PM EST [facility] Allergen Alternaria alternata (M6) IgE <0.10 kU/L 05/08/2024 1:18 PM EST [facility] Allergen Alternaria alternata Class 0 05/08/2024 1:18 PM EST [facility] Allergen Cat Dander (E1) IgE <0.10 kU/L 05/08/2024 1:18 PM EST [facility] Allergen Cat Dander Class 0 05/08/2024 1:18 PM EST [facility] Allergen Dog Dander (E5) IgE <0.10 kU/L 05/08/2024 1:18 PM EST [facility] Allergen Dog Dander Class 0 05/08/2024 1:18 PM EST [facility] Allergen Cockroach (I6) IgE <0.10 kU/L 05/08/2024 1:18 PM EST [facility] Allergen Cockroach Class 0 05/08/2024 1:18 PM EST [facility] Allergen Maple (Falls) (T1) IgE 0.20(H) kU/L 05/08/2024 1:18 PM EST [facility] Allergen Maple (Falls) (T1) IgE Class 0/1 05/08/2024 1:18 PM EST [facility] Allergen Birch (T3) IgE 0.75(H) kU/L 05/08/2024 1:18 PM EST [facility] Allergen Birch Class 2 05/08/2024 1:18 PM EST [facility] Allergen Mountain Granville (T6) IgE <0.10 kU/L 05/08/2024 1:18 PM EST [facility] Allergen Mountain [place]ville (T6) IgE Class 0 05/08/2024 1:18 PM EST [facility] Allergen Compton Tree (T10) IgE <0.10 kU/L 05/08/2024 1:18 PM EST [facility] Allergen Compton Tree Class 0 05/08/2024 1:18 PM EST [facility] Allergen Asher (T11) IgE <0.10 kU/L 05/08/2024 1:18 PM EST [facility] Allergen Asher (T11) IgE Class 0 05/08/2024 1:18 PM EST [facility] Allergen Assumption (T14) IgE <0.10 kU/L 05/08/2024 1:18 PM EST [facility] Allergen Assumption (T14) IgE Class 0 05/08/2024 1:18 PM EST [facility] Allergen White Kamlesh (T15) IgE <0.10 kU/L 05/08/2024 1:18 PM EST [facility] Allergen White Kamlesh Class 0 05/08/2024 1:18 PM EST [facility] Allergen Saint Xavier (T7) IgE 0.13(H) kU/L 05/08/2024 1:18 PM EST [facility] Allergen Saint Xavier (T7) IgE Class 0/1 05/08/2024 1:18 PM EST [facility] Allergen Elm (T8) IgE <0.10 kU/L 05/08/2024 1:18 PM EST [facility] Allergen Elm Class 0 2023 1:18 PM EST [facility] Allergen White [employer] IgE <0.10 kU/L 05/08/2024 1:18 PM EST [facility] Allergen [employer] Class 0 05/08/2024 1:18 PM EST [facility] Allergen Bermuda Grass (G2) IgE <0.10 kU/L 05/08/2024 1:18 PM EST [facility] Allergen Bernuda Grass Class 0 05/08/2024 1:18 PM EST [facility] Allergen Vinay Grass (G6) IgE <0.10 kU/L 05/08/2024 1:18 PM EST [facility] Allergen Vinay Grass (G6) IgE Class 0 05/08/2024 1:18 PM EST [facility] Allergen Common Ragweed (Short) (W1) IgE <0.10 kU/L 05/08/2024 1:18 PM EST [facility] Allergen Common Ragweed (Short) (W1) IgE Class 0 05/08/2024 1:18 PM EST [facility] Allergen Rough Pigweed (W14) IgE <0.10 kU/L 05/08/2024 1:18 PM EST [facility] Allergen Rough Class 0 05/08/2024 1:18 PM EST [facility] Allergen Mugwort (W6) IgE <0.10 kU/L 05/08/2024 1:18 PM EST [facility] Allergen Mugwort Class 0 05/08/2024 1:18 PM EST [facility] Allergen Sheep Lander (W18) IgE <0.10 kU/L 05/08/2024 1:18 PM EST [facility] Allergen Sheep Lander (W18) IgE Class 0 05/08/2024 1:18 PM EST [facility] Allergen Mouse Urine Proteins (E72) IgE <0.10 kU/L 05/08/2024 1:18 PM EST [facility] Allergen Mouse Urine Proteins Class 0 05/08/2024 1:18 PM EST [facility] Immunoglobulin E 81 <YC=196 kU/L 05/08/2024 1:18 PM EST [facility] Blood Structure of peripheral vein / Unknown Venipuncture / Unknown 05/07/2024 3:52 PM EST 05/07/2024 4:27 PM EST [facility] - 05/08/2024 1:18 PM EST Specific ?Level [...] analytical performance characteristics have been determined by [employer]. It has not been cleared or approved by the U.S. Food and Drug Administration. This assay has been validated pursuant to the CLIA regulations and is used for clinical purposes. Kenny Ye MD LAB BLOOD ORDERABLES [facility] al Result Performing Organization Address City/State/[facility] Co de Phone Number KRISTY SACRAMENTO [address], [place] [address], [place] [phone] [facility] [address] [facility] [address], [place] [address], [place] [phone] * (ABNORMAL) CBC Auto Differential (05/07/2024 3:52 PM EST) WBC 11.4(H) 3.8 - 10.8 10*3/uL 05/07/2024 4:38 PM EST [facility] RBC 5.59 3.80 - 5.80 10*6/uL 05/07/2024 4:38 PM EST [facility] Hemoglobin 15.3 11.7 - [...] - 7.80 10*3/uL 05/07/2024 4:38 PM EST [facility] Immature Grans # 0.13(H) <=0.03 10*3/uL 05/07/2024 4:38 PM EST [facility] Lymphocyte # 3.40 0.85 - 3.90 10*3/uL 05/07/2024 4:38 PM EST [facility] Monocyte # 1.00(H) 0.20 - 0.95 10*3/uL 05/07/2024 4:38 PM EST [facility] Eosinophil # 0.30 0.02 - 0.50 10*3/uL 05/07/2024 4:38 PM EST [facility] Basophil # 0.10 0.00 - 0.20 10*3/uL 05/07/2024 4:38 PM EST [facility] nRBC % 0.0 /100 WBCs 05/07/2024 4:38 PM EST [facility] nRBC # <0.01 <0.01 10*3/uL 05/07/2024 4:38 PM EST [facility] Blood Structure of peripheral vein / Unknown Venipuncture / Unknown 05/07/2024 3:52 PM EST 05/07/2024 4:27 PM EST us Kenny Ye MD LAB BLOOD ORDERABLES Fin al Result [facility] [address] [place] [address], * Immunoglobulins Panel (IgG, IgA, IgM) (05/07/2024 3:52 PM EST) Immunoglobulin A 225 47 - 310 mg/dL 05/07/2024 9:50 PM EST [facility] IgG, Serum 1305 600 - 1640 mg/dL 05/07/2024 9:50 PM EST [facility] Immunoglobulin M 96 50 - 300 mg/dL 05/07/2024 9:50 PM EST [facility] Blood Structure of peripheral vein / Unknown Venipuncture / Unknown 05/07/2024 3:52 PM EST 05/07/2024 4:27 PM EST Narrative [facility]ST[facility] BRADFORD - 05/07/2024 9:50 PM EST [facility] Received Date: us Kenny Ye MD LAB BLOOD ORDERABLES Fin al Result [facility]ST[facility] BRADFORD [address], [place] [address], [place] [phone] [facility] [address] [facility] [address], [place] [address], [place] [phone] from Last 3 Months Insurance [facility] Care Teams Weigher And Grader Relationship Specialty Start Date End Date Harlan Singleton [address] [place] [phone] PCP - General Pediatrics 03/24/24
--- OUTSIDE RECORDS SUMMARY | 2024-07-28 16:12 | XMS_ITS | Encounter Summary ---
Author Organization [employer] Address [address] [place] [address] [address] [place] [address] Care Team Providers Care Mammalogist Name Role Phone Jennifer Negron NP Primary Care Provider [phone] Gena Lewis ENTERPRISE MOBILITY ARCHITECT Unavailable [phone] Raul Andrews MD Primary Care Provide r Reason for Visit * Reason Comments Med Change Request Encounter Details Date Type Department Care Team (Late st Contact Info) Description 02/13/2023 Refill [facility] [address] [place] [address] Jacqueline Hernandez CNP Social History Tobacco Use Types Packs/Day Years Used Date Smoking Tobacco: Every Day Cigarettes Smokeless Tobacco: Never Alcohol Use Standard Drinks/Week Comments Not Currently 8 (1 standard drink = 0.6 oz pur e alcohol) Alcohol Answer Date Recorded How often do you have a drink containing alcohol ? 2 11/21/2022 How many drinks containing a lcohol do you have on a typical day when you are drinking? 3 11/21/2022 How often do you have six or more drinks on one occasion? 3 11/21/2022 Depression Answer Date Recorded Patient Health Questionnaire-9 Score 2 11/21/2022 Depression Answer Date Recorded Patient Health Questionnaire-2 Score 0 11/21/2022 Comments Unknown Sex and Gender Information Value Date Recorded Sex Assigned at Female 04/21/2022 3:32 PM EDT Legal Sex Female 3:32 PM EDT Gender Identity Transmasculine 07/24/2023 12:14 PM EST Sexual Orientation Queer 11/21/2022 11 :13 AM EDT documented as of this encounter Miscellaneous Notes * Telephone Encounter - Siomara Perez RPh - 02/13/2023 6:43 PM EDT duplicate documented in this encounter Plan of Treatment Upcoming Encounters Date Type Department Care Team (Late st Contact Info) Description 08/06/2024 3:00 PM EST Telemedicine [facility] [address] [address] Gena Lewis LICSW [address] [place] [phone] documented as of this encounter Visit Diagnoses Not on filedocumented in this encounter Additional Health Concerns Assessment Noted Time PHQ-9 Depression Total Score: 2 11/22/19 23 10:07 AM EDT documented as of this encounter Care Teams Mammalogist Relationship Specialty Start Date End Date Jennifer Negron NP PCP - General Family Medicine 02/07/22 12/08/23 Raul Andrews MD [address] [place] [phone] PCP - General Internal Medicine 12/09/23 Gena Lewis LICSW [address] [place] [phone] [facility] 07/12/22 documented as of this encounter
--- OUTSIDE RECORDS SUMMARY | 2024-07-28 16:13 | XMS_ITS | Encounter Summary ---
Author Organization [employer] Address [address] [place] [address] [address] [address] Care Team Providers Care Senior Ui Designer Name Role Phone Gena LewisSW Unavailable [phone] Raul Andrews MD Primary Care Provide r Reason for Visit * Reason Comments Individual Therapy Encounter Details Date Type Department Care Team (Late st Contact Info) Description 06/30/2024 2:00 PM EST Telemedicine [facility] [address] [place] [address] Gena Lewis, CEMETERY KEEPER [address] [place] [address] Individual Therapy Social History Tobacco Use Types [...] Patient Instructions * Patient Instructions* Gena Lewis, CEMETERY KEEPER - 06/30/2024 2:00 PM EST Please send message to your prescriber about trying to transfer care and asking about a telehealth appointment to talk about meds. Please send message to your PCP to ask about Zepbound and questions about sleep apnea as well as past diagnosis of being pre-diabetic. Ask friends for moral support about not smoking and possible ride to [place] for in person visit. Meet in three weeks. documented in this encounter Progress Notes * LENNY Hayden - 06/30/2024 2:00 PM EST Psychotherapy Session Note Start Time: 2:04pm End Time: 2:55pm Subjective ID: Nella is a 23 y.o. White queer-identified transmasculine individual (pronouns they/them/theirs) with history of ADHD, MDD, and TESSA who presents for ADHD, Bipolar, Anxiety, and Individual Therapy. Interval History/HPI/PFSH: Clt reported they got As last semester and noted a decrease in anxiety over break, and that they are still struggling with feeling anxious at baseline and before bed. They reported feeling tired right now due to possibly being sick and likely due to med withdrawal; they agreed to message their prescriber to discuss plans to continue meeting. They reported being upset with A and scared to name it out of a fear of conflict and agreed there's a parallel to how their mom treats them. They reported being interested in trying Zepbound to help with weight loss, sleep apnea, and potentially their relationship. They said it's hard to see how this wouldn't help their relationship. They agreed to try to talk to friends about support for things like stopping smoking and a possible ride into [place]. Mental Status Exam: General Appearance: Well groomed, appropriate eye contact. Attitude/Behavior: Cooperative, conversant, engaged, and with good eye contact. Motor: No psychomotor agitation or retardation, no tremor or other abnormal movements. Speech: Normal rate, volume, prosody Mood: Euthymic Affect: Congruent with mood and topic of conversation Thought Process: Linear, goal directed Thought Associations: No loosening of associations Thought Content: Does not endorse SI or HI Perception: Does not endorse AVH or paranoid ideation Sensorium: Alert Insight: Intact Judgment: Intact Cognition: Cognitively intact to conversational testing with respect to attention, orientation, fund of knowledge, recent and remote memory, and language. Assessment/Plan Dialectical Behavioral Therapy and Motivational Interviewing Problem List Items Addressed This Visit Bipolar II disorder, most recent episode major depressive (CMS/HCC) Clt rpeorted feeling really fatigued and in pain, noting they're not sure what's due to a possible flu exposure and medication withdrawal. They reported a hard [place] due to spending it alone due to a pinched nerve and being unable to move. They reported some stress in their relationship with A and trying to ignore it. They said they are currently staying with a friend and are enjoying their time with their friend. Meet in three weeks. Generalized anxiety disorder Clt reported a decrease in stress associated with being on break and noted still generally feeling anxious at baseline and having nightmares about major medical crises. They reported they have checked their blood pressure and that it's high at baseline right now. Clt reported some anxiety and stress about wanting to pursue Zepbound for weight loss and sleep apnea and worrying certain people will be upset. Clt agreed it would be interesting to see how treating sleep apnea may affect general wellness. Meet in three weeks. Borderline personality disorder (CMS/HCC) Clt reported their mom yelled and swore at them when she was upset with them and then pretending everything was fine a few days later. Clt agreed that this is somewhat similar to their dynamic with A and noted they are scared of people being mad at them. Meet in three weeks. Risk Assessment: Imminent Risk of Suicide or [...] & Plan Note - LENNY Hayden - 06/30/2024 7:08 PM EST Associated Problem(s): Generalized anxiety disorder Clt reported a decrease in stress associated with being on break and noted still generally feeling anxious at baseline and having nightmares about major medical crises. They reported they have checked their blood pressure and that it's high at baseline right now. Clt reported some anxiety and stress about wanting to pursue Zepbound for weight loss and sleep apnea and worrying certain people will be upset. Clt agreed it would be interesting to see how treating sleep apnea may affect general wellness. Meet in three weeks. * Assessment & Plan Note - LENNY Hayden - 06/30/2024 7:05 PM EST Associated Problem(s): Borderline personality disorder (CMS/HCC) Clt reported their mom yelled and swore at them when she was upset with them and then pretending everything was fine a few days later. Clt agreed that this is somewhat similar to their dynamic with Aand noted they are scared of people being mad at them. Meet in three weeks. * Assessment & Plan Note - LENNY Hayden - 06/30/2024 7:03 PM EST Associated Problem(s): Bipolar II disorder, most recent episode major depressive (CMS/HCC) Clt rpeorted feeling really fatigued and in pain, noting they're not sure what's due to a possible flu exposure and medication withdrawal. They reported a hard [place] due to spending it alone due to a pinched nerve and being unable to move. They reported some stress in their relationship with A and trying to ignore it. They said they are currently staying with a friend and are enjoying their time with their friend. Meet in three weeks. * Care Plan - LENNY Hayden - 06/30/2024 2:00 PM EST Problem: Bi-Polar Disorder Description: [...] moment Outcome: Not Progressing Note: Clt reported physically not feeling well and feeling hihgtly fatigured, noting they're not sure what might be a possible flu exposure and what might be medication withdrawal. They reported a lonely holiday due to having a pinched nerve and not being able to do see anyone. They reported frustration in their relationship and finding it easier not to talk about those stressors. Problem: Anxiety Description: As evidenced by symptoms [...] regularly. Outcome: Not Progressing Note: Clt reported a decrease in school stress due to being on break and still generally feeling anxious at baseline, including having nightmares about having a health emergency and recognizing theirblood pressure is elevated at baseline currently. They reported engaging in avoidance to try to manage specific stressors. documented in this encounter Plan of Treatment Upcoming Encounters Date Type Department Care Team (Late st Contact Info) Description 08/06/2024 3:00 PM EST Telemedicine [facility] [address] [place] [address] Gena Lewis LICSW [address] [place] [phone] documented as of this encounter Visit Diagnoses Diagnosis Bipolar II disorder, most recent episode major depressive (CMS/HCC) Other bipolar disorders Generalized anxiety disorder Borderline personality disorder (CMS/HCC) Borderline personality disorder documented in this encounter Additional Health Concerns Assessment Noted Time PHQ-9 Depression Total Score: 13 024 1:48 PM EST documented as of this encounter Care Teams Senior Ui Designer Relationship Specialty Start Date End Date Raul Andrews MD [address] [place] [address] PCP - General Internal Medicine 12/09/23 Gena Lewis, CEMETERY KEEPER [address] [place] [address] [facility] 07/12/22 documented as of this encounter
--- OUTSIDE RECORDS SUMMARY | 2024-07-28 16:13 | XMS_ITS | Clinical Summary ---
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 etonogestrel-elu ting (Nexplanon) 68 mg contraceptive implant Nexplanon 68 mg implant Active OXcarbazepine (Trileptal) 150 MG tabletIndication s:Generalized anxiety disorder,Bipolar II disorder, most recent episode major depressive (CMS/HCC) TAKE 1 TABLET BY MOUTH 2 TIMES DAILY 180 tablet 3 02/05/20 24 Active albuterol 108 (90 Base) MCG/ACT inhaler Inhale 2 puffs every 6 (six) hours if needed. 03/16/20 24 Active sertraline (Zoloft) 50 MG tabletIndication s:Generalized anxiety disorder,Bipolar II disorder, most recent episode major depressive (CMS/HCC) Take 1 tablet (50 mg) by mouth Once per day. 90 tablet 3 04/22/20 24 Active lurasidone (Latuda) 80 MG tabletIndication s:Bipolar II disorder, most recent episode major depressive (CMS/HCC) Take 1 tablet (80 mg) by mouth with evening meal. 90 tablet 3 05/12/20 24 Active clonazePAM (KlonoPIN) 0.5 MG tabletIndication s:Generalized anxiety disorder Take 1 tablet (0.5 mg) by mouth 2 times daily. 30 tablet 5 05/12/20 24 Active lisdexamfetamine (Vyvanse) 30 MG capsuleIndicatio ns:Attention deficit hyperactivity disorder (ADHD), predominantly inattentive type Take 1 capsule (30 mg) by mouth in the morning. 30 capsule 05/12/20 24 025 Discontinued(R eorder (will not trigger notification to Pharmacy)) lisdexamfetamine (Vyvanse) 30 MG capsuleIndicatio ns:Attention deficit hyperactivity disorder (ADHD), predominantly inattentive type Take 1 capsule (30 mg) by mouth in the morning. 30 capsule 07/03/19 25 025 Discontinued(T herapy completed) Active Problems Problem Noted Date Diagnosed Date Tachycardia 07/25/2024 Assessment & Plan (07/25/2024 1:33 PM EST): Newly diagnosed, etiology unclear, accessing appropriate speciality care. We agree not to change anything during current treatment with Propranolol. Advised they call cardiology office to talk about increasing dose and frequency of Propranolol in about a week since follow up is almost 2 months away. Class 3 obesity 05/19/2024 Nicotine dependence with current use 04/21/2024 Assessment & Plan (04/21/2024 3:48 PM EDT): Smoking 10 cigarettes a day starting wihtin an hours of waking. Diswcussed role of nictoine replacement in stopping withdrawal and craving. Discussed need to develop non-nicotine compensation for social and emotional benefits they currently get from smoking. I will send in 14mg patches for daily x 6 week use with step down to 7 mg then. I will also ask his psych prescriber about potential role of bupropion or varenicline to support cessation in the context of their other medications. Deviated nasal septum 04/20/2024 Obstructive sleep apnea syndrome 04/17/2024 Shortness of breath 03/22/2024 Assessment & Plan (04/21/2024 3:38 PM EDT): Continues with periodic chest pain and shortness of breath with sustained physical activity including walking for sustained periods of time, physical efforts such as lifting and moving heavy weights: has to stop, rest, catch their breath before being able to resume activity. At work this interferes in ability to sustain work tasks: needs periodic rest breaks and some limitations in weights carried and moved. I will complete the accommodations form and return it to them to pass along to company. Has pulmonology consult in 2 weeks. Assessment & Plan (04/03/2024 12:23 PM EDT): Continues with symptoms of cough, congestion, shortness of breath. Most likely allergies and/or environmental exposures. Has been lasting too long to be infectious and they are COVID negative. Suggested trying more symptomatic relief: sudafed, zyrtec, flonase. To continue with planned pulmonology department to rule out other potential causes. Will write a letter for accommodations. Assessment & Plan (03/22/2024 1:05 PM EDT): COVID negative by report and ED note. Normal exam; appears well. No effortful breathing. Able to speak in complete sentences. But reports SOB. Likely a post-viral effect (normal CXR and completed abx course). No cough or fever or destaurations to suggest pneumonia. No travels to [place] or [facility] to suggest fungal pneumonia. Possible non-infectious pneumonitis. Did have elevated WBC 6 days ago. Will repeat WBC today to check for resolution. Given disconnect between exam and subjective symptoms, will refer to [facility] pulmonology to assess for other causes of SOB. Chronic bilateral low back pain without sciatica 02/15/2023 Left shoulder pain 09/10/2022 Assessment & Plan (09/10/2022 8:58 PM EDT): Patient w/ history of acute on chronic L shoulder pain likely iso repeated muscular strain from somewhat labor intensive work and constant carrying heavy backpack. They also use a binder for their chest but notably do not have pain around area of binder. Counseled regarding weight bearing management and regarding conservative measures w/ consideration for lidocaine patch, NSAIDs, heating/cooling, and placed referral for PT. Anemia 09/10/2022 Assessment & Plan (09/10/2022 9:00 PM EDT): Patient w/ reported history of anemia when they were younger, have not been anemic since being on T. Reported fatigue over course of last few months. Still having ongoing menses, albeit less frequently. Not had CBC check in several months. Ordered for CBC and iron studies. Cold intolerance 09/10/2022 Assessment & Plan (09/10/2022 8:48 PM EDT): Patient reported several month history of increasing cold intolerance in context of fatigue. No recent TFTs. Ordered for lab work to evaluate for hypothyroidism during today's visit. Borderline personality disorder 06/13/2022 Assessment & Plan (06/30/2024 7:05 PM EST): Clt reported their mom yelled and swore at them when she was upset with them and then pretending everything was fine a few days later. Clt agreed that this is somewhat similar to their dynamic with A and noted they are scared of people being mad at them. Meet in three weeks. Assessment & Plan (04/16/2024 3:55 PM EDT): Clt acknowledged engaging a toxic behavior by reading A's texts about them and reported feeling really upset about what they read. They said they try hard to ignore frustration they have with A and said that A doesn't do the same. Clt agreed that maybe they are annoyed with him because they try to pretend things are good. Clt agreed to make plans to talk to A. Meet in one week. Assessment & Plan (01/23/2024 5:39 PM EDT): Clt reported wanting to work on naming their feelings in the moment, syaing they don't say things when A does things that upset them. Clt agreed to talk to A about his tone. Clt also listed places they are trying to hold better boundaries in communicaton and not talk for people or allow people to talk for them. Meet in three weeks. Assessment & Plan (12/13/2023 5:08 PM EDT): Clt reported feeling BPD really triggered in the house meeting last night and having a lot of urges to self harm. Clt agreed to work on utilizing clear communication about asking A if they can officially stay with him, telling their housemates they are not ready to talk, and allowing themself to define when they feel ready to talk to housemates. Clt endorsed continued urge to self harm and agreed to try replacement behaviors for urges to self harm. Clt agreed to bridge session and clinician will reach out with next steps. Meet in one month. Assessment & Plan (06/14/2023 10:08 AM EST): - continue lamotrigine for affective instability Assessment & Plan (03/06/2023 11:01 AM EDT): Clt reported being upset with himself for looking at E, having a sip of coffee and walking away. He agreed that E probably wouldn't have heard what he wanted to say and agreed to try writing another letter he'll never send to E. Meet in two weeks. Assessment & Plan (02/05/2023 12:29 PM EDT): Clt reported considering polyamory and reports feeling comfortable with his relationship and boundaries. Meet in 4 weeks. Assessment & Plan (01/18/2023 2:23 PM EDT): - continue therapy, continue psychoed, demonstrating good insight into diagnosis - continue Latuda 80 mg daily Assessment & Plan (01/11/2023 12:40 PM EDT): Clt reported wanting to work on decreasing extremes in reactions and feeling able to be more self reliant. Meet in three weeks. Assessment & Plan (12/13/2022 9:44 AM EDT): - continue therapy, continue psychoed, demonstrating good insight into diagnosis - continue Latuda 80 mg daily Assessment & Plan (11/14/2022 10:15 AM EDT): - continue therapy, continue psychoed, demonstrating good insight into diagnosis - continue Latuda 80 mg daily Assessment & Plan (10/20/2022 9:53 AM EDT): - continue therapy, continue psychoed, demonstrating good insight into diagnosis - continue Latuda 80 mg daily Assessment & Plan (09/13/2022 10:17 AM EDT): - continue therapy, continue psychoed, demonstrating good insight into diagnosis - continue Latuda 80 mg daily Assessment & Plan (08/08/2022 11:18 AM EST): - continue therapy, continue psychoed, demonstrating good insight into diagnosis - continue Latuda 80 mg daily Chest pain 02/07/2022 Pelvic pain 02/07/2022 ADHD (attention deficit hyperactivity disorder) 04/08/2020 Assessment & Plan (07/25/2024 1:30 PM EST): Unstable now off Vyvanse and feeling deficits more pronounced with resumption of school. They know to avoid caffiene and we discussed that the only non-stimulant med FDA approved for ADHD Atomoxetine is also Dopamine impacting thus would potentially lead to the same side effects. They will follow up with cardio soon, at which time we could get the green light to restart a low dose stimulant, advised they stay in touch with news. Assessment & Plan (06/09/2024 1:47 PM EST): Clt rpeorted they have found one dose of Vyvanse doesn't help focus or motivation and they have found increasing the dose helps. They agreed to talk to their prescriber about this. Meet next month. Assessment & Plan (05/29/2024 10:53 AM EST): Clt reported they are struggling with motivation, losing things, and difficulty focusing when people ae talking to them. Meet in two weeks. Assessment & Plan (05/14/2024 8:29 PM EST): Clt reported feeling really tired, even when they take their Vyvance, and lacking energy and motivation to do school work in the evening. Meet in two weeks. Assessment & Plan (04/23/2024 2:07 PM EDT): Clt reported they are struggling with getting work done and lacking motivation to act on their big picture priorities. They reported in the past they have generally woken up with motivation to change and feel able to get caught up and noted this isn't happening. They reported they are taking meds as prescribed. Clt reviewed past skills that have helped them focus with work and created list with clinician about things to try now (see instructions). Meet next week. Assessment & Plan (03/18/2024 4:59 PM EDT): Clt reported lacking energy and motivation to do work from being sick and being overwhelmed. Clt agreed they need to resume all their meds, including Vyvanse, to help with school work. Assessment & Plan (02/29/2024 3:39 PM EDT): Clt reported feeling more motivated, which they attributed to Vyvanse. They reported being able to spend 5 hours cleaning their room recently. They reported experiencing feeling antsy in class the past two days and agreed to monitor this. Meet in 2 weeks. Assessment & Plan (02/29/2024 9:46 AM EDT): Stable/improved with switch to Vyvanse, continue. Renewed. Assessment & Plan (02/06/2024 7:48 PM EDT): Clt reported their ADHD med has changed and reported being hopeful this will help with motivation to get started to do things. Meet in three weeks. Assessment & Plan (02/05/2024 9:12 AM EDT): Slightly unstable only in terms of benefits from Ritalin being a bit limited, with upcoming school and working 16 hours a week to keep job. Switching back to Vyvanse which was tried and which they benefited from prior. Assessment & Plan (01/10/2024 10:19 AM EDT): Stable but might soon switch to IR combo from Concerta, but we agree to get anxiety under better control first. Assessment & Plan (12/06/2023 11:09 AM EDT): Unstable without meds and without the deadlines of school. Restarting Concerta, doubling frequency of Guanfacine. Assessment & Plan (11/13/2023 4:19 PM EDT): Clt reported worry they got their first C and agreed they can decide to retake the class based on the grade they get. They expressed worry about motivation and focus to pack and agreed they can ask their friend to help them stay on task. Meet in two weeks. Assessment & Plan (10/04/2023 12:40 PM EDT): Clt reported they are not taking their ADHD medication as prescribed. Clt agreed to resume med. Meet in three weeks. Assessment & Plan (09/11/2023 8:00 AM EDT): - less hyperactivity/restlessness - continue guanfacine 1 mg daily - continue Concerta 36 mg daily today Assessment & Plan (08/21/2023 11:16 AM EST): Clt reported they started the Concerta yesterday and noted it may have helped with taking a test. Clt agreed to keep taking it to see if this helps with focus. Meet in two weeks. Assessment & Plan (08/14/2023 11:44 AM EST): - better anxiety management, though having restlessness, especially during times where sustained attention is required - initiate guanfacine 1 mg daily - reviewed potential side effects including bradycardia, dizziness, sedation, dry mouth - continue Concerta 36 mg daily today Assessment & Plan (07/24/2023 2:14 PM EST): Clt expressed interest in re-trying Ritalin due to lack of focus and motivation with Concerta. Clt agreed to talk to Jacqueline about this. Meet in 2+ weeks. Assessment & Plan (07/17/2023 10:21 AM EST): - trouble with focus persists, mildly better with Concerta increase though continues to cite difficulty, continue to monitor -continue Concerta 36 mg daily for now Assessment & Plan (06/14/2023 10:07 AM EST): - trouble with focus persists, has been reporting difficulty focusing on coursework and in conversation with friends/partner over last several appointments -increase Concerta 36 mg daily Assessment & Plan (05/16/2023 10:01 AM EST): - some difficulty completing coursework, though feeling more optimistic - continue to monitor -continue Concerta 27 mg daily Assessment & Plan (04/19/2023 1:06 PM EDT): He reported continued issues with focus and 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 He agreed to think about how to create a schedule for tomorrow and prepare for his upcoming oral exam in [employer]. Assessment & Plan (04/17/2023 10:11 AM EDT): - worsening ADHD consistent symptoms persist - increase Concerta to 27 mg daily - aware of stimulant risks including cardiac side effects, insomnia, appetite suppression, jitteriness Assessment & Plan (03/20/2023 10:52 AM EDT): Clt reported continuing to struggle with focus and motivation with homework. He identified some skils he uses to help with focus, including body doubling, listening to one of two play lists, and giving himself small rewards to complete things. He agreed to work on trying to set clear plans for studying, creating grammar cheat sheets for himself and going to more [employer] tutoring classes. Meet in 3+ weeks. Assessment & Plan (03/13/2023 10:02 AM EDT): - worsening ADHD consistent symptoms - discontinue Strattera - resume Concerta 18 mg daily - aware of stimulant risks including cardiac side effects, insomnia, appetite suppression, jitteriness Assessment & Plan (03/06/2023 10:57 AM EDT): Clt reported feeling like changes in meds have worsened ADHD symptoms and reporting he's struggling with focus and feeling bored in classes. He said that he's trying to reschedule his appointment with Jacqueline Hernandez to discuss these med changes. Assessment & Plan (02/05/2023 12:23 PM EDT): Clt reported an increase in feeling very tired over the past two weeks and reported an ADHD med change. Clt agreed to email Jacqueline Hernandez NP about this. Meet in 4 weeks. Assessment & Plan (01/18/2023 2:22 PM EDT): - paradoxical reaction to increase in Concerta, will trial nonstimulant medication option and gauge response - difficulty with focusing when describes seems consistent with dissociation - continue to consider - discontinue Concerta - start Strattera 25 mg daily - Reviewed potential side effects including increase in BP and HR, decrease in appetite/weight loss, sedation, dizziness, and dry mouth Assessment & Plan (12/13/2022 9:44 AM EDT): - worsening inattention, difficulty at work, in conversation and at home - increase Concerta to 36 mg daily - aware of stimulant risks including cardiac side effects, insomnia, appetite suppression, jitteriness Assessment & Plan (11/14/2022 10:15 AM EDT): - continue Concerta 27 mg daily Assessment & Plan (10/20/2022 9:53 AM EDT): - continue Concerta 27 mg daily Assessment & Plan (08/15/2022 10:50 AM EST): Clt reported difficulties focusing in class and engaged in problem solving on how to improve readiness for exams next week. Meet in two weeks. Assessment & Plan (06/13/2022 3:49 PM EST): - well managed with current Concerta dose - typically does not require in between semesters, ok to refill if requested Generalized anxiety disorder 08/12/2019 Assessment & Plan (07/25/2024 1:31 PM EST): Understandably unstable, continue PRN Clonazepam which does not worsen tachy. Assessment & Plan (07/22/2024 3:03 PM EST): Clt reported a lot of worry about not being able to complete everything they need to this semester and reported that not doing school isn't an option. They reported anxiety about relationships, including how to set limits. Clt agreed to practice trying to do what they need in steps. Meet next week. Assessment & Plan (06/30/2024 7:08 PM EST): Clt reported a decrease in stress associated [...] affect general wellness. Meet in three weeks. Assessment & Plan (06/09/2024 1:41 PM EST): Clt reported continuing to struggle with nighttime anxiety, noting that it feels like they have something to do or that they should be doing as their day is wrapping up and they are trying to relax. They noted that not much helps this and agreed it will be interesting to see what this feels like during break when they don't have any outstanding responsibilities. Meet next month. Assessment & Plan (05/29/2024 10:58 AM EST): Clt rpeorted heightened anxiety and strss with all of the outstanding wirk they have to complete by next Sunday and reported having a panic attack about the amount of work they have due in class recently. They reported contonuing to exoereicne nighttime anxieyt about school and aobut general life stress. 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 Meet in two weeks. Assessment & Plan (05/14/2024 8:24 PM EST): Clt noted a lot of anxiety and stress lately and doing okay. They reported they have made a significant dent in their [employer] work and is talking with the university about ways to manage their absences and difficulties. They reported seeing the dog sitter and endorsed some anxiety that a diagnosis won't be clear; they reported hoping to be able to know if they are able to return to work next month. 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 They reported significant stress recently with their roommates and feeling like they might self harm, but did not and realized they are not in the wrong. They said they have plans to have friends over and described their plans to manage the situation if their roommates react negatively. Meet in two weeks. Assessment & Plan (04/30/2024 7:52 PM EST): Clt reported continuing to struggle with nighttime anxiety and said that it feels more manageable if they can sleep with others, noting that their goal is to manage it alone. They said that all the skills and tricks they have tried haven't helped. They noted that cannabis leads to an increase in anxiety and they aren't able to enjoy this. Clt agreed to try reading texts to lull them into sleep and to try writing out the things they are thinking about having to do. Clt reported anxiety about the election and anticipatory anxiety about having to terminate with this clinician; they agreed to address this when there is a plan to work towards. Meet in two weeks. Assessment & Plan (04/23/2024 2:12 PM EDT): Clt reported some anxiety about not living up to their big picture goals of passing this semester and graudating in October. They reported with strugglig to connect current bheaviors to big picutre goals and haivng a hard time envisions small steps they can take to get there. They created list with clinician about things to try to help them meet their goals (see instructions). Meet next week. Assessment & Plan (04/16/2024 3:58 PM EDT): Clt reported wanting a break from school to help with anxiety. They agreed they need to talk to A about what happened with M and how to follow their mutual rules and expressed a lot of anxiety about this because he's had so many hard conversations with people over the last six months. Meet in one week. Assessment & Plan (03/25/2024 3:52 PM EDT): Clt reported feeling a lot better about school, saying they met with their advisor who suggested they drop the two classes they are struggling the most with and their advisor helped them come up with a plan to earn these credits over the winter and spring semester. Meet in one week. Assessment & Plan (03/18/2024 5:05 PM EDT): Clt reported feeling really overwhelmed with school and unsure how they will get caught up. They said they have reached out to professors and agreed to reach out again to establish what work they can and need to do. They reported a lot of general stress and said that is generally managed, just hard. Clt agreed to resume all meds. Clt agreed to ask self what cigarettes and cutting offer and try to come up with ways to help meet those needs. Clt will follow up with professors. They said things at home feel worse, but they can't afford to move and that things might be getting better. Meet next week. Assessment & Plan (02/29/2024 3:40 PM EDT): Clt reproted a decrease in feeling anxious generally and noted feeling anxiosu this week due to scholarship money not having been paid to the school yet and being unable to buy books. They reported this felt more resolved after they talked to the school and got paid at work. They reported experiencing feeling antsy in class the past two days and agreed to monitor this. Meet in 2 weeks. Assessment & Plan (02/29/2024 9:47 AM EDT): Stable with rare use of PRN Clonazepam which leads to residual morning grogginess. Continue sparing use. Assessment & Plan (02/06/2024 7:47 PM EDT): Clt reported a decrease in physical anxiety and an increase in panic attacks and overthinking. 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 Clt agreed to try to exercise to help with anxiety and depression. Assessment & Plan (02/05/2024 9:11 AM EDT): Unstable with worsening depressive symptoms, takes PRN Clonazepam sparingly, mostly to catch up on sleep. Oxcarb has helped decrease anxiety threshold. Continue 150mg BID. Assessment & Plan (01/23/2024 5:37 PM EDT): Clt reported feeling less anxiety physically and stll feeling liek they're supposed to be doing things when they're trying to fall asleep. Clt has been able to move back home and be better able to manage that stress, as well as manage stress about how A is treating them by moving back home. Meet in three weeks. Assessment & Plan (01/10/2024 10:19 AM EDT): Unstable, see Bipolar Dx A&P and above. Assessment & Plan (01/07/2024 7:46 PM EDT): Clt reported high level of physical anxiety lately with times of overthinking and said that people have asked them to get the chest pain and tightness checked out to make sure that it is juust anxiety. They reported they've been feeling stressed at home because it feels like A needs time alone and they don't feel love or wanted. They said they have have talked with their housemate A and that is a little better. They said they don't feel like they have their own place to live a place and that it's hard to want to go to their actual house because of stress and being there makes them want to self injure. They agreed this is something they can towards as things feel more comfortable with A. They said their boyfriend wants them to clean up the room and said they will work on that today. They reported feeling like they're hearing things that aren't real but isn't hearing hallucinations and agreed this may be due to high anxiety. They reported a diagnosis of mono in late November and feeling really tired since then. They said it's hard to nap because they're overthinking. They agreed to work on progressive relaxation and ways to separate from thoughts. Meet in two weeks Assessment & Plan (12/13/2023 5:12 PM EDT): Clt reported heightened nighttime anxiety and a question of auditory hallucinations this week, as well as stress about talking to friends. Clt agreed to try med change their new prescriber suggested and agreed to reach out to their housemates when they feel ready. Meet in one month. Assessment & Plan (12/06/2023 11:10 AM EDT): Stable but continued mostly somatic symptoms at night which were briefly helped by Lexapro before GI s/e developed. Discussed various options, for now will simply double frequency of Guanfacine which seems to help lower daytime anxiety off label and is not leading to any side effects such as dizziness or weakness. Assessment & Plan (11/13/2023 4:12 PM EDT): Clt reported anxiety about their move, saying they need to pack up today and tomorrow and they are lacking motivation to move; they said their friend is coming over today to hang out and can help them stay on task. They reported worry that they got their first college C and agreed to see what they grade they end up with and then they can decide if they'd like to retake the class. They reported stress about work and money and agreed ot continue their job search and to prioritize what they think is the most fun for their birthday. They reported a significant increase in nighttime anxiety since stopping Lexapro and reported difficulty falling asleep. Meet in three weeks. Assessment & Plan (10/25/2023 11:56 AM EDT): Clt reported their anxiety hasn't been too bad, saying they think this is due to taking their meds more regularly and noted they think they might get more anxious in a few days. They said they know they need to focus on their work over the next week. Clt reported their house all realized they have to be out by November 17 and reported having a plan with one of their roommates about what they are going to do with their stuff. Meet in three weeks. Assessment & Plan (10/04/2023 12:45 PM EDT): Clt reported continued anxiety about school but not necessarily experience anxiety as their primary issue as they have in the past. They said they were sort of surprised by the combination of anxiety and intense feelings of self harm. Clt reported that when they lay in bed and rot, they still feel anxious about what they need to do. They agreed to think about what they'd like to get done in a day and what is enough to help them manage anxiety. Meet in three weeks. Assessment & Plan (09/11/2023 8:01 AM EDT): - less restlessness, continue guanfacine - continue Latuda 80 mg daily - continue Cogentin PRN - good tolerance Lexapro, continue at 5 mg Assessment & Plan (08/21/2023 11:26 AM EST): Clt reported that their anxiety has been worse over the past couple of weeks and that this seems connected to homework, saying they feel overwhelmed by homework so they smoke a cigarette and play a video game. They said that body doubling can help and that generally they have to feel like an assignment has to be done then to be able to complete it. They reported struggling in Marshallese due to their professor and struggling with feeling like they should already know this. Clt agreed to think about utilizing rewards after they do an assignment, moving up due dates of assignments for themself and reminding themself that higher level of Marshallese is grammar they would have to learned even if they grew up speaking it. Meet in two weeks. Assessment & Plan (08/14/2023 11:46 AM EST): - improved anxiety, some restlessness though seems primarily around schoolwork/attention - initiate guanfacine and monitor - continue Latuda 80 mg daily - continue Cogentin PRN - good tolerance Lexapro, continue at 5 mg Assessment & Plan (07/24/2023 2:18 PM EST): Clt reported some decrease in anxiety possibly due to not hearing or seeing mice. Clt reported current episode of high anxiety started after having pneumonia in the fall. They noted life is generally better minus more money worries and are unsure why their anxiety has been higher in the past year. Clt noted increase in sensory issues. Clt agreed to work on creating schedule for self to help them feel more prepared for school and help with mood and anxiety. Assessment & Plan (07/17/2023 10:20 AM EST): - worsening anxiety persists - continue Latuda 80 mg daily - continue Cogentin PRN - discontinue propranolol - ineffective - initiate Lexapro 5 mg daily Assessment & Plan (07/06/2023 12:46 PM EST): Clt reported continuing worse anxiety at night, reporting that he keeps hearing things that other people don't and assumes it's the mice in his house but isn't surewhat it is. He reported heightened about specific stressors. He reported he hasn't smoked cigarettes in ~2 months and has cut back on cannabis use due to finances and finding it's not always helping anxiety. Clt reported that deep breathing isn't working. He noted he's trying to take meds daily and is at times taking more medication to manage symptoms. He agreed to talk more with Jacqueline about this. Meet in 1+ weeks. Assessment & Plan (06/14/2023 10:08 AM EST): - worsening anxiety, continues to be most prominent at night but is now experiencing during day as well - continue Latuda 80 mg daily - continue Cogentin PRN - initiate propranolol 10 mg daily as needed, reviewed potential side effects including orthostatic hypotension Assessment & Plan (05/16/2023 9:58 AM EST): - some anxiety around completing class work - continue to monitor - continue Latuda 80 mg daily - continue Cogentin PRN Assessment & Plan (05/15/2023 1:00 PM EST): Paulette reported continuing to struggle with anxiety about school, saying he has been behind for the majority of the semester and has missed a lot of classes. He reported feeling more capable after having a very active day, noting this is why he may seem less anxious than he was feeling over the weekend. He reported feeling like he might not have to drop classes and feels like he can finish out the semester. He noted an increase in irritability and sensory sensitivity since stopping cannabis and nicotine use. Clt identified goals for the week and agreed to try to limit late afternoon caffeine intake and get up if he can't fall asleep to clean his room or do something not on a screen. Meet in 3 weeks. Assessment & Plan (04/19/2023 1:01 PM EDT): Clt reported anxiety is okay and endorsed underlying anxiety about his outstanding school work. He said that getting it done wll help him manage this anxiety. He reported some sensory sensitivity lately that is out of character for him and agrees this might be due to anxiety. He agreed to try to create a to-do list for himself tomorrow to accomplish before he goes out so he feels better about school and able to have fun. Assessment & Plan (04/17/2023 10:11 AM EDT): - continues to be well managed - continue Latuda 80 mg daily - continue Cogentin PRN Assessment & Plan (03/20/2023 10:54 AM EDT): Clt reported continued anxiety about homework, saying he thinks sometimes he puts homework off to avoid the anxiety, and continued difficulties sleeping. He agreed to think about creating a to-do list for the next day to help with anixeyt when he wakes up, continuing to avoid looking at his phone if he wakes up in the middle of the night and can't fall back asleep, and trying to read in the morning if he wakes up before his alarm. Meet in three weeks. Assessment & Plan (03/13/2023 10:03 AM EDT): - continues to be well managed - some anxiety in last week but seems to be 2/2 frustration with attention/focus - continue Latuda 80 mg daily - continue Cogentin PRN Assessment & Plan (03/06/2023 11:10 AM EDT): Clt reported heightened anxiety over the past couple of weeks, noting it seemed to feel more constant after seeing E. He reported difficulty sleeping. He agreed to practice [id number], deep breathing, progressive relaxation, sleep hygiene, and exercise. Assessment & Plan (02/13/2023 10:26 AM EDT): - continues to be well managed - some anxiety in last week but seems to be an outlier - will continue to monitor - decrease and discontinue Topamax - continue Latuda 80 mg daily - continue Cogentin PRN Assessment & Plan (02/05/2023 12:22 PM EDT): Clt rpeorted a decrease in anixety and having anxiety during the friend trip to [place] and yesterday after work. Clt denied any panic attacks. Clt reported that he's going on a ~2 month T break starting on Feb.23 and said he thinks this will help manage school anxiety. Meet in ~4 weeks. Assessment & Plan (01/18/2023 2:23 PM EDT): - continues to be well managed -continue Topamax 50 mg daily - continue Latuda 80 mg daily - states sometimes when getting worked up can have a tic attack - has responded well to Cogentin in the past - will resume PRN Assessment & Plan (01/11/2023 12:43 PM EDT): Clt reported feeling more able to do things, which he attributed to increase in ADHD medication, and struggling with attention span and losing things; he agreed this may be due to ADHD. Clt reported primary treatment goal of feeling better able to manage anxiety. Meet in 3+ weeks. Assessment & Plan (12/13/2022 9:43 AM EDT): - continues to be well managed -continue Topamax 50 mg daily - continue Latuda 80 mg daily Assessment & Plan (11/21/2022 11:12 AM EDT): Clt reported heightened anxiety over the past six months and endorsed current stress with [employer] application. Clt identified coping skills to use while he waits to hear from [employer]. Meet in two weeks. Assessment & Plan (11/14/2022 10:15 AM EDT): - improved anxiety - increase Topamax 50 mg daily - continue Latuda 80 mg daily - consider increase following Topamax initiation if anxiety persists Assessment & Plan (10/24/2022 11:04 AM EDT): Clt reported heightened anxiety and panic over the past month, which he attributed to school stress, not having housing situated, and social life issues. He agreed to try to be mindful of whom he can vent to and who is just interested in drama, as well as trying to take things with his love life one week at a time. Clt identified his goals to help him manage finals. Meet in two weeks. Assessment & Plan (10/20/2022 9:52 AM EDT): - worsening anxiety persists - initiate Topamax 25 mg daily - mood augmentation and anxiety management, aware this is off label - Disc possible risks, benefits and side effects of this medication including kidney stones, parethesias, and sedation. Pt not or planning to become . Reviewed potential to interact with OCP, patient to use back up method until discussing with OCP prescriber -discontinue Buspar - ineffective - continue Latuda 80 mg daily - consider increase following Topamax initiation if anxiety persists Assessment & Plan (09/13/2022 10:15 AM EDT): - reporting worsening anxiety, more panic, more worry -Start Buspar - 5 mg at bedtime for one week, then increase to 5 mg twice a day for one week, then increase to 10 mg at bedtime and 5 mg in the morning, then increase to 10 mg twice a day and continue - discontinue propranolol - ineffective - continue Latuda 80 mg daily Assessment & Plan (09/08/2022 4:58 PM EDT): Clt reported heightened anxiety about school and worrying about why people don't write him back, endorsing feeling very sensitive lately. Clt agreed to practice intentional distraction to manage anxiety about texting. Meet in two weeks. Assessment & Plan (08/15/2022 10:52 AM EST): Clt endorsed worry about break-up and learning about E's tik toks. Clt described what he is doing to manage this stress. Meet again in two weeks. Eating disorder 06/04/2018 Overview (11/30/2023): 2018- Calorie restriction Admitted to [facility] 2017 for depression and restriction Hormone disorder 11/21/2017 Polycystic ovarian syndrome 11/21/2017 Bipolar II disorder, most recent episode major d epressive 11/21/2017 Assessment & Plan (07/25/2024 1:32 PM EST): Stable on Latuda and Sertraline and Oxcarb. All 3 meds longstanding and generally do not lead to tachy. Continue. Assessment & Plan (07/22/2024 3:05 PM EST): Clt reported struggling with physical health and mental health, noting an increase in fatigue, brain fog, and thoughts of SI and thoughts NSSIB. They denied any plan to act on SI. They endorsed feeling hopeless about everything and missing nicotine as a coping skill. Clt agreed to try to practice alternate relaxation skills and to reout to their PCP. Meet next week. Assessment & Plan (06/30/2024 7:03 PM EST): Clt rpeorted feeling really fatigued and in pain, noting they're not sure what's due to a possible flu exposure and medication withdrawal. They reported a hard Shanna due to spending it alone due to a pinched nerve and being unable to move. They reported some stress in their relationship with A and trying to ignore it. They said they are currently staying with a friend and are enjoying their time with their friend. Meet in three weeks. Assessment & Plan (06/09/2024 1:46 PM EST): Clt reported feeling really good at how productive they were able to be last week and endorsed having a hard night last night due to A's cat's health, and feeling tired and like they want to rot today. 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 Clt said they have tentative plans with their sister over Shanna and reported not wanting to spend the holiday alone; they agreed to talk to her about alternate plans. They reported looking forward to having the house to themself over break and not work. Meet next month. Assessment & Plan (05/29/2024 10:59 AM EST): Clt reported heightened stress due to the amount of outstanding work they have due next week. They noted a significant period of feeling depressed after a panic attack recently and discussed what coping skills helped. They reported some tension in communication with A recently. Meet in two weeks. Assessment & Plan (05/14/2024 8:26 PM EST): Clt rpeorted high stress and urges to self harm during a text conversation with a roommate in which they were told to move out and that there's a back up person waiting to move in. Clt said that they were able to refrain from self harm and said they are not going to be pushed out. Clt reported taking their meds as prescribed. Meet in three weeks. Assessment & Plan (04/30/2024 7:49 PM EST): Clt reported they're sick again and that this is negatively impacting their mental health. They reported still being behind in work and lacking motivation to do work. They agreed that this would be a semester they may try to do a leave for if it were possible and noted that it doesn't feel possible. They said they cried with their dad today and that helped. Meet in two weeks. Assessment & Plan (04/23/2024 2:10 PM EDT): Clt reported their primary concern right now is being behind in work and lacking the energy and drive to do it, saying sometines it feels related to feeling fidgety, feeling anxious or depressed or just not being able to do it. They agreed that it would be helpful not to use A as their primary source of support rihgt now and agreed to reach out to their sister. They exppresed concern aobut the money htey've already spent with their financial reporting consultant money. They acknowledged that their relationship to food isn't helping and agreed to buy groceries that are both easy to eat and shelf stable. created list with clinician about things to try now to help with school and budgeting (see instructions). Meet next week. Assessment & Plan (04/16/2024 3:57 PM EDT): Clt reported good days and bad days. They noted some SI that is not about wanting to but about getting hit by a car so people, namely A, give them positive attention and they can take a break from school. They noted a lot of ideation about cutting and not having cut lately. They reported they want to quit smoking cigarettes because they know that will be good for their health but don't feel ready or able. They agreed to work on cutting back on when they have access to cigarettes and trying to count the number of cigarettes they have per day and limiting that to 8. Meet next week. Assessment & Plan (03/25/2024 3:50 PM EDT): Clt reported feeling better today, noting a lot of last week was still hard and reported smoking a little with a friend and life felt manageable; clt agreed to try to think of other ways to do this without smoking. They reported that they feel a lot more hopeful about school. They said they are feeling ready to not talk to their mom for a while given that she generally always says things that feel mean and hurtful and she doesn't seem to register how this affects them; they agreed they have to do this for themself. They reported a very positive interaction with Dr. Singleton on Sunday and feel like they have a sense of what's wrong; they reported they are feeling worse since yesterday and agreed to go to [facility] tomorrow for their scheduled visit. Meet in two weeks. Assessment & Plan (03/18/2024 4:58 PM EDT): Clt reported they have been sick since school started and noted it's not clear what's wrong with them. They reported being tired and lacking energy and motivation for school work. They reported thoughts of SI and thoughts of self harm. They reported they haven't used cannabis in a week and are down to ~1 cigarette per day. Clt agreed to resume taking meds, including Vyvanse, and make plans with friends to study and follow up with professors. Meet next week. Assessment & Plan (02/29/2024 3:39 PM EDT): Clt reported their mood has felt less depressed and they have felt more motivated, which they attributed to Vyvanse. They reported they have not engaged in SIB or had thoughts to engage in SIB recently. They reported things feel stable with their partner and they are not feeling bothered by homelife stress. They reported experiencing feeling antsy in class the past two days and agreed to monitor this. Meet in 2 weeks. Assessment & Plan (02/29/2024 9:47 AM EDT): Stable on combo of lowest dose Oxcarb and Latuda, and Sertraline, continue. Of note, dosing Sertraline at night, advised to switch to morning to see if that slows down the racing mind at night. If not, could go up on Oxcarb or consider Quetiapine. Assessment & Plan (02/06/2024 7:45 PM EDT): Clt reported feeling more depressed and continuing to struggle with motivation to do things like unpack room and clean the things growing mold. They reported they are staying in their room and it's okay and noted times when other roommates have made passive aggressive comments about them. They reported feeling tired of all the big conversations they have had to have this summer and agreed to talk more with A about the conversation they need to have about dating. They reported urges to self harm and passive SI; they noted getting less out of cutting than they used to and agreed ot work on using the skills they learned in programs to positively manage urges to cut. They reported the pain in their leg has gone away and agreed to try to exercise. Assessment & Plan (02/05/2024 9:11 AM EDT): Stable/improved with Trileptal, continue. Assessment & Plan (01/23/2024 5:41 PM EDT): Clt reported continued mood lability and wanting to work on stabilizing their mood. They reported an increase in spending time on ED Twitter and agreed that is a form of self harm. Clt reported they have moved home with the goal of not continuing to hash out what happened because that is negative for their mental health. They reported feeling more stable after recent med change. Meet in three weeks. Assessment & Plan (01/10/2024 10:19 AM EDT): Unstable with what sounds like christie/anxiety despite Clonazepam. Adding Trileptal. See above for thought process. Given such a short response to Clonazepam and sedation, increasing is not best. Assessment & Plan (01/07/2024 7:38 PM EDT): Clt reported feeling depressed and sad most of the time and not being sure what's mono and what's depression. They reported their leg and hip issue hasn't improved. They said the Zoloft is helping with nightmares and noted they don't feel like they have their own place to live. Clt and clinician reviewed coping strategies. Meet in two weeks. Assessment & Plan (12/13/2023 5:10 PM EDT): Clt reported feeling really low due to being sick, issues with housemates, not having enough money for rent, and not being able to get hours or work due to being sick. Clt reported they are going to urgent care [facility] to get re-screened for strep. Clt agreed to try to stretch to see if that helps their leg and agreed to prioritize this after they feel better with strep. Meet in one month. Assessment & Plan (12/06/2023 11:09 AM EDT): Unstable, which seems understandable and appropriate dealing with the life stressors they are dealing with therefore we will not dose adjust Latuda, but consider doing so next visit or in the future if nec. Assessment & Plan (11/13/2023 4:08 PM EDT): Clt reported stopping lexapro due to significant GI distress and reported that the GI symptoms have seemed to improve, but their mood is lower, they have less motivation and their nighttime anxiety has returned. Clt agreed to reach out to their PCP re: what to do about mood and GI symptoms and try to see if there is a bridge session for psychiatry sooner than their intake on December 05. Meet in three weeks. Assessment & Plan (10/25/2023 11:53 AM EDT): Clt reported they haven't been feeling too depressed lately, which they attributed to taking their meds more regularly. They acknowledged feeling frustrated that all of the labor they did for their best friend's birthday green party wasn't recognized and found themself shutting down and feeling bitter internally. They agreed that if they do help with this again, they can set different limits in terms of how much they offer. Meet in three weeks. Assessment & Plan (10/04/2023 12:39 PM EDT): Clt reported feeling depressed lately and unmotivated to do things. They reported they've been off their meds for over a month and that they want to resume Lexapro but lost the bottle so they can't get refills. Clt rpeoted engaging in a lot of self harm and not necessarily understanding their motivation to do this. They reported they started their Latuda ~1 week ago and haven't had urges to self harm sicne. They said they are waiting for an alarm to go off to make them start to focus on work and haven't experienced that. They listed what helps motivate them and agreed to try to these thing. Meet in three weeks. Assessment & Plan (09/11/2023 8:00 AM EDT): - mood stable - continue Lexapro 5 mg daily - continue Latuda 80 mg daily with meals - continue Cogentin 0.5 mg daily as needed Assessment & Plan (08/21/2023 11:19 AM EST): Clt reported their mood has felt okay and noted feeling depressed a couple of weeks ago and being able to manage that. Clt said they have noticed difficulties falling asleep at night, haivng a hard time waking up in the morning and feeling unable to nap during the day over the past 1-2 weeks and said they think this might be due to starting Lexapro. Meet in two weeks. Assessment & Plan (08/14/2023 11:45 AM EST): - some mood instability though overall better since starting Lexapro, continue at 5 mg daily - continue Latuda 80 mg daily with meals - continue Cogentin 0.5 mg daily as needed Assessment & Plan (07/24/2023 2:12 PM EST): Clt reports mood feels flat and they still feel fragile. Clt agreed to think about creating structure for self to manage mood and anxiety. Meet in ~2 weeks. Assessment & Plan (07/17/2023 10:20 AM EST): - self discontinued Lamotrigine - feeling fragile, crying frequently - initiate Lexapro 5 mg daily - reviewed potential side effects including GI, SD, SS and SI - continue Latuda 80 mg daily with meals Assessment & Plan (07/06/2023 12:17 PM EST): Clt reported crying at work and feeling unable to ignore things that he used to be able to brush off. He reported that his anxiety is worse than his mood issues and reported missing being able to lay in bed and rot. Meet in 1+ weeks. Assessment & Plan (06/14/2023 10:06 AM EST): - improved mood, continue Lamotrigine 50 mg daily - rereviewed SJS risk and to immediately contact Community Support Specialist or EMS if experiences rash - continue Latuda 80 mg daily with meals Assessment & Plan (05/16/2023 9:57 AM EST): - worsening mood, irritability and affective instability - continue Latuda 80 mg daily with meals - initiate Lamotrigine 25 mg daily for two weeks, then increase to 50 mg daily - Reviewed potential side effects including SJS, headache, fatigue, dizziness and/or GI upset, reviewed importance of contacting me before continuing with medication if misses more than three days in a row Assessment & Plan (05/15/2023 12:51 PM EST): Paulette reported feeling really depressed/more depressed than he has felt in a while last week after being diagnosed with pneumonia ~1.5 weeks ago and having been sick most of the semester while spending the week at his mom's house, including self harming while he was there. He reported increased irritability and sensory sensitivity and difficulties regulating since stopping using nicotine and cannabis. He reported feeling less depressed since leaving his mom's house and still feeling low and disconnected over the weekend, including having thoughts of self harm and killing himself feeling more manageable instead of writing a paper; he reported being able to write the paper over the weekend. He reported feeling better since having a productive day yesterday. Meet in three weeks. Assessment & Plan (04/19/2023 12:59 PM EDT): Paulette reported his mood has felt pretty good. He discussed plans to quit using nicotine on June 08 and agreed to think about how to help himself cut back, talk to friends for moral support, and talk to his prescriber about gum or patches. Meet in two weeks. Assessment & Plan (04/17/2023 10:10 AM EDT): - no issues mood/anxiety - continue Latuda 80 mg daily with meals Assessment & Plan (03/20/2023 10:54 AM EDT): Paulette reported he's been doing okay and noted that he uses a little cannabis when feeling sad. He reported he is eating normally. Meet in three weeks. Assessment & Plan (03/13/2023 10:00 AM EDT): - less anxiety, some worsening in mood -monitor - continue Latuda 80 mg daily with meals Assessment & Plan (03/06/2023 11:35 AM EDT): Clt reported that he self injured on Sunday due to feeling upset that he couldn't do Marshallese homework and that he's a who can't speak Marshallese. He reported that he hasn't cleaned his room in a couple of weeks and agreed to wash his mug in session that has mold actively growing. He reported his plan is to see a sat tutor today and agreed to think about on-going tutoring if it's helpful. Meet in two weeks. Assessment & Plan (02/13/2023 10:24 AM EDT): - less anxiety, improved mood continues - continues to have decreased appetite in addition to body dysmorphic thoughts - sedation in evening - decrease and discontinue Topamax - 25 mg for two weeks then stop - continue Latuda 80 mg daily with meals Assessment & Plan (02/05/2023 12:28 PM EDT): Clt reported his mood has felt stable and that he has felt sensitive in situations where he feels like he's being judged. Meet in 4 weeks. Assessment & Plan (01/18/2023 2:23 PM EDT): - less anxiety, improved mood continues - monitor report of decreased appetite in AM - aware taking two medications that contribute to decreased appetite - well tolerating Topamax initiation, continue 50 mg daily - continue Latuda 80 mg daily with meals Assessment & Plan (01/11/2023 12:41 PM EDT): Clt reported continued improved mood and struggling some when by himself. Meet in three weeks. Assessment & Plan (12/13/2022 9:43 AM EDT): - less anxiety, improved mood continues - some hypersomnia - monitor - well tolerating Topamax initiation, continue 50 mg daily - continue Latuda 80 mg daily with meals Assessment & Plan (11/21/2022 11:11 AM EDT): Clt reported that mood currently feels stable and agreed to think about using this summer as a gauge to see how his mood is with a decrease in academic stress while on meds. Clt also agreed to look into surgeons for top surgery. Meet in two weeks. Assessment & Plan (11/14/2022 10:14 AM EDT): - less anxiety, improved mood - well tolerating Topamax initiation, increase to 50 mg daily - continue Latuda 80 mg daily - continue Cogentin 0.5 mg daily Assessment & Plan (10/24/2022 10:59 AM EDT): Clt reported that he thinks he had a hypomanic episode last month, reporting he felt too happy, he felt reckless, and he wasn't sleeping; he agreed this could have shaped his experience of seeing K. Clt reported his mood currently feels stable and said that anxiety continues to be challenging. Meet in two weeks. Assessment & Plan (10/20/2022 9:41 AM EDT): - anxiety continues to be difficult to manage, reporting depressive symptoms, interpersonal stress - discontinue propranolol 10 mg - start propranolol 25 mg at bedtime - continue Latuda 80 mg daily - consider dose increase following topamax initiation - continue Cogentin 0.5 mg daily Assessment & Plan (09/13/2022 10:17 AM EDT): - some affective instability, some interpersonal stress - not unmanageable currently - continue to monitor - discontinue propranolol 10 mg - continue Latuda 80 mg daily - continue Cogentin 0.5 mg daily - start Buspar Assessment & Plan (09/08/2022 4:56 PM EDT): Clt reflected on why he constantly seeks out people to date. Clt practiced aguilar mind to better understand relationship with V. Meet in two weeks. Assessment & Plan (08/15/2022 10:50 AM EST): Clt reported feeling discouraged about current situation with V and was able to name that he needs to take space to not force something that is not there. Clt was able to participate in reframing situation with ex about what he learned from that situation. Meet again in two weeks. Assessment & Plan (08/08/2022 11:16 AM EST): - some worsening mood in anxiety in context of break up - discussed trialing propranolol in place of Clondine for anxiety and stress management support, patient to trial - discontinue Clonidine today - start propranolol 10 mg every bedtime as needed, option to take additional 10 mg in AM as needed, trial prior to class - continue Latuda 80 mg daily - no report muscle twitching today, no evidence involuntary movement - continue Cogentin 0.5 mg daily Assessment & Plan (06/13/2022 3:54 PM EST): - continue Latuda 80 mg daily - resume Cogentin 0.5 mg daily - stop Latuda 20 mg - forgetting to take, mood typically stable over winter break and can usually tolerate lower dosing without worsening of symptoms - having some symptoms that may be consistent with EPS that he describes as tics , reporting pressure around his left eye, ticing of head/neck that he describes as a twitch - resolves when taking Cogentin, notices most often when he takes Latuda inconsistently - plan for daily Latuda and Cognetin administration with close monitoring of muscle twitching Gender dysphoria in adult 11/24/2016 Overview (11/30/2023): Goes by Nella Resolved Problems Problem Noted Date Diagnosed Date Resolved Date Health counseling 06/05/2024 07/25/2024 Assessment & Plan (06/05/2024 10:05 AM EST): Reviewed next steps. Will be taking a break from work through the winter. Has supports and secure housing. Follow up with PCP as needed. Costochondritis, acute 03/22/202404/21 Assessment & Plan (03/22/2024 1:00 PM EDT): Location of pain and ability to induce it with palpation suggests costochondritis likely due to viral syndrome. Continue with NSAIDS. Likely to resolve in several weeks. Strep pharyngitis 12/04/2023 03/22/2024 Assessment & Plan (12/04/2023 11:24 AM EDT): I think they are being treated appropriately Continue azithro Ibuprofen standing for the next 3 days Reviewed s/s complicatinos (low suspcion for abscess) Diarrhea 10/29/2023 03/22/2024 Assessment & Plan (10/29/2023 3:01 PM EDT): Patient experiencing diarrhea since starting Lexapro. Had similar GI upset in the past when taking the med. Discussed that it is not the most common adverse effect but is possible. Nothing to suggest infectious diarrhea. Has discontinued use of Lexapro with some decrease in frequency of stooling. No indications of dehydration. Instructed to discontinue lexapro entirely and watch and wait to reevaluate symptoms. Recommended immodium for now, increase fiber and water intake, and to start probiotic. If symptoms persist for >1 week after discontinuation instructed to schedule follow up visit. Will reach out to psych prescriber to consider alternative to med. Patient verbalizes understanding and agreement with plan. Right calf pain 10/19/2023 02/05/2024 Assessment & Plan (10/19/2023 4:57 PM EDT): Low suspicioun of CVT given clinical history. Likely MSK, will refer tp PT. Also check D-dimer and order duplex ultrasound to rule our DVT. Reviewed emergency precautions, when to seek care. Patient verbalizes understanding and agreement with plan. Gender dysphoria 10/19/2023 12/06/2023 Assessment & Plan (10/19/2023 4:59 PM EDT): Testosterone use has been intermittent. Patient has achieved desired physical goals with use of testosterone in terms of affirmation. Ongoing testosterone no longer aligns with self ascribes goals. Discussed expectations with stopping testosterone. Patient would prefer to body fat to redistribute back to pre-testosterone body shape, discussed that physical changes could take time. Menses may resume despite Nexplanon. Will check labs as below. Will plan to discontinue testosterone and follow up in 3 months to revisit affirmation goals and evaluate experience without testosterone. Patient verbalizes understanding and agreement with plan. Diarrhea of presumed infectious origin 05/31/2023 10/29/2023 Assessment & Plan (05/31/2023 7:06 PM EST): Given stool frequency and consistency in setting of recent multi antibiotic use will presume and treat for C. Dif. Discussed importance of diagnostic clarity, patient unable to come to [place] but will be able to complete stool testing [facility]- order placed. Will start on Vancomycin- confirmed no cross-reactivity with other abx allergies. Medication side effects, indications, contraindications, and correct use were discussed with the patient. All questions answered to patient's satisfaction. Discussed emergency precautions. Bacterial vaginosis 09/10/2022 03/22/20 Assessment & Plan (09/10/2022 8:52 PM EDT): Patient w/ prior history of bacterial vaginosis s/p treatment and subsequent resolution. Patient reported recurrence of symptoms consistent w/ BV that they formerly had before. Only sexual activity w/in last several months was oral sex w/ 1 partner, no insertive intercourse, no other STI symptoms. Discussed testing vs consideration for empiric treatment with them and they preferred trial of empiric treatment. Ordered for course of flagyl, counseled regarding abstinence from alcohol while on flagyl. Acne vulgaris 07/06/2021 03/22/2024 Severe episode of recurrent major depressive disorder, without psychotic features 03/13/2016 Overview (11/30/2023): Previously lived in jail at [facility] Admitted several times for depression, last 2018 at [facility], 2019 at [facility] Encounters Date Type Department Care Team Description 07/28/2024 Telephone [facility] [id number] [place] [address] Raul Andrews MD Prior Authorization 07/25/2024 1:40 PM EST Telemedicine [address] [address] Shawn Mariee CNP Med Management 07/22/2024 2:00 PM EST Telemedicine [address] [address] Gena Lewis LICSW Individual Therapy 07/03/[address] [address] Shawn Mariee CNP Attention deficit hyperactivity disorder (ADHD), predominantly inattentive type 06/30/2024 2:00 PM EST Telemedicine [address] [address] Gena Lewis LICSW Individual Therapy 06/17/[address] [address] Jennifer Headley LPN Nurse Triage 06/12/[address] [address] Shawn Mariee CNP 06/12/[address] [address] Shawn Mariee CNP 06/09/2024 1:00 PM EST Telemedicine [address] [address] Gena Lewis LICSW Individual Therapy 06/05/2024 10:00 AM EST Telemedicine [address] [address] Harlan Singleton MD Health counseling (Primary Dx) 05/29/2024 10:00 AM EST Telemedicine [address] [address] Gena Lewis LICSW Individual Therapy 05/19/2024 9:40 AM EST Telemedicine [address] [address] Raul Andrews MD Class 3 obesity (Primary Dx); Dietary counseling; Exercise counseling; Suspected sleep apnea; Shortness of breath 05/14/2024 3:00 PM EST Telemedicine [place] [facility] [address] [place] [address] Gena Lewis [facility] Individual Therapy 05/12/2024 Travel 05/12/2024 Refill [facility] [address] [place] [address] Raul Andrews MD 05/12/[address] [address] Shawn Mariee CNP Bipolar II disorder, most recent episode major depressive (CMS/HCC); Attention deficit hyperactivity disorder (ADHD), predominantly inattentive type; Generalized anxiety disorder 04/30/2024 4:00 PM EST Telemedicine [address] [address] Gena Lewis [facility] Individual Therapy 04/29/2024 Telephone [facility] [address] [place] [id number] Raul Andrews MD Advice Only from Last 3 Months Immunizations Name Administration Dates Next Due DTaP, Unspecified 12/13/2006, 4,07/16/2003,05/05,03/16/2003 HPV 9-Valent 05/15/2016,12/31/2015,10/22/2015 Hep A, Unspecified 11/15/2010,11/15/2009 Hep B, Unspecified 12/10/2003,03/16/2003, 003 HiB, unspecified 03/21/2004, 4,05/05/2003,01/26 INFLUENZA VACCINE QUADRIVALE NT RECOMBINANT PRESERVATIVE FREE RIV4 03/23/2021 IPV 10/22/2015, 7,07/16/2006,05/05,03/16/2003 Influenza injectable quadriv alent IIV4 with preservative 04/12/2017 Influenza, Unspecified 03/25/2018 Influenza, injectable, quadr ivalent, preservative free, pediatric 03/15/2016,04/26/2015 Influenza, seasonal, injecta ble, preservative free 03/11/2013,03/16/2012,03/25/2011,04/16,06/11/2009 MMR 12/05/2007,12/10/2003 Meningococcal ACWY, unspecified 12/11/2014 Meningococcal MCV4O 03/23/2021 Meningococcal MCV4P [id number]-135 12/11/2014 Novel [id number] 06/11/2009 Pfizer Covid-19 Vaccine 12+ 11/05/2020, Pneumococcal Conjugate PCV 13 11/15/2010 ,11/15/2009,07/12/2004,07/16,05/05/2003,03/16/2003 Polio, Unspecified 10/22/2015, 7,07/16/2006,05/05,03/16/2003 Tdap 12/11/2014 Typhoid, Unspecified 08/28/2011 Varicella 12/05/2007,07/13/2004 Family History Medical History Relation Name Comments Depression Mother Swetha Mental illness Mother Swetha Alcohol abuse Mother's Brother Hector Alcohol abuse Paternal Grandmother N/A Relation Name Status Comments Mother Swetha Mother's Brother Hector Paternal Grandmother N/A Social History Tobacco Use Types Packs/Day Years Used Date Smoking Tobacco: Every Day Cigarettes 0.5 1 Last attempted to quit: 05/07/2023 Smokeless Tobacco: Never Tobacco Cessation:Ready to Q uit: Yes; Counseling Given: Yes Alcohol Use Standard Drinks/Week Comments Yes 8 [...] Orientation Queer 11/21/2022 11 :13 AM EDT Last Filed Vital Signs Vital Sign Reading Time Taken Comments Blood Pressure 118/86 03/22/2024 11:39 AM EDT Pulse 99 03/22/2024 11:39 AM EDT Temperature 36.6 ??C (97.8 ??F) 03/22/2024 11:39 AM E DT Respiratory Rate - - Oxygen Saturation 97% 03/22/2024 11:39 AM EDT Inhaled Oxygen Concentration - - Weight 125 kg (275 lb) 06/05/2024 9:17 AM EST Height 175.3 cm (5' 9 ) 06/05/2024 9:17 AM EST Body Mass Index 40.61 06/05/2024 9:17 AM EST Plan of Treatment Upcoming Encounters Date Type Department Care Team (Late st Contact Info) Description 08/06/2024 3:00 PM EST Telemedicine [facility] [address] [place] [address] Gena Lewis, [facility] [address] [place] [address] Health Maintenance Due Date Last Done Comments Chlamydia and Gonorrhea Screening 2002 HIV Screening 2002 Lipid Panel 2002 Pneumococcal Vaccine: Pediatrics (0 to 5 Years) and At-Risk Patients (6 to 49) Years) (1 of 1 - PPSV23) 01/10/2011 11/15/2010, 11/15/2009, 07/12/2004, Additional history exists Family Planning (PISQ) 2017 Hepatitis C Screening 2020 Pap Smear 11/23/2023 COVID-19 Vaccine ( season) 2024 11/05/2020, 10/15/2020 Influenza Vaccine (#1) 2024 , 03/25/2018, 04/12/2017, Additional history exists Depression Monitoring (PHQ-9) 11/09/2024 05/12/2024, 05/12/2024 SDOH Screening 12/03/2024 12/04/2023 DTaP/Tdap/Td Vaccines (7 - Td or Tdap) 12/11/2024 12/11/2014, 12/13/2006, 03/21/2004, Additional history exists Alcohol/Substance Use Screening 05/12/2025 05/12/2024 Depression Screening 05/12/2025 05/12/2024, 05/12/20 24 Tobacco Screening 06/05/2025 06/05/2024 Zoster Vaccines (1 of 2) 2052 RSV Patients and Patients Aged 60 years or older (1 - 1-dose 75+ series) 2077 Hepatitis B Vaccines Completed 12/10/2003, 03/16/2003, 2002 HIB Vaccines Completed 03/21/2004, 06/26, 05/05/2003, Additional history exists Hepatitis A Vaccines Completed 11/15/2010, 11/16/19 10 IPV Vaccines Completed 10/22/2015, 09/24, 12/13/2006, Additional history exists HPV Vaccines Completed 05/15/2016, 01/2016, 10/22/2015 Meningococcal Vaccine Completed 03/23/2021 , 12/11/2014, 12/11/2014 RSV under 20 months Aged Out No longe r eligible based on patient's age to complete this topic Rotavirus Vaccines Aged Out No longer eligible based on patient's age to complete this topic Insurance [address] [place], [place] [id number] Care Teams Airfreight Operations Agent Relationship Specialty [place] [address] [place] [id number] PCP - General Internal Medicine 12/09/23 Gena Lewis, REVIEW TRAINER [address] [place] [id number] Commanding Officer Traffic Division Behavioral Health 07/12/22
--- OUTSIDE RECORDS SUMMARY | 2024-07-28 16:13 | XMS_ITS | Clinical Summary ---
Author Organization [facility] Address [address] [place] [address] Care Team Providers Care Regional Guide Name Role Phone Jennifer Negron NP Primary Care Provi keyon Allergies Active Allergy Reactions Criticality Noted Date Comments Amoxicillin Hives Medium 12/12/2022 Cephalexin Hives,Rash High 12/16/2014 Furosemide Other (See Comments) 06/04/2015 Medications etonogestrel (IMPLANON SDRM) by subdermal route. Active testosterone enanthate (DELATESTRYL) 200 mg/mL injection Inject into the shoulder, thigh, or buttocks every 14 (fourteen) days. Active methylphenidate HCl (CONCERTA ORAL) Take by mouth. Activ e BD Regular Bevel [place] 25 gauge x 5/8 ndle USE FOR SUBCUTANEOUS INJECTIONS 3 Active BD Luer-Lety Syringe USE TO DRAW UP MEDICATION 3 Active testosterone cypionate (DEPOTESTOTERON E CYPIONATE) 200 mg/mL injection INJECT 0.3 ML (60 MG) UNDER THE SKIN 1 (ONE) TIME PER WEEK. 3 Active topiramate (TOPAMAX) 25 MG tablet TAKE 2 TABLETS BY MOUTH AT BEDTIME 3 Active Social History Tobacco Use Types Packs/Day Years Used Date Smoking Tobacco: Some Days Cigarettes E-cig/Vape Smokeless Tobacco: Never Tobacco Cessation:Ready to Q uit: No; Counseling Given: Yes Comments:Advised quitting Comments No Sex and Gender Information Value Date Recorded Sex Assigned at Female 03/24/2024 7:32 AM EDT Legal Sex Unknown 06/08/2021 5:42 AM EST Gender Identity Male 03/24/2024 7:32 AM EDT Sexual Orientation Not on file Last Filed Vital Signs Vital Sign Reading Time Taken Comments Blood Pressure 122/86 12/12/2022 2:17 PM EDT Pulse 89 12/12/2022 2:17 PM EDT Temperature 36.7 ??C (98.1 ??F) 12/12/2022 2:17 PM ED T Respiratory Rate 18 12/12/2022 2:17 PM EDT Oxygen Saturation 98% 12/12/2022 2:17 PM EDT Inhaled Oxygen Concentration - - Weight - - Height - - Body Mass Index - - Plan of Treatment Health Maintenance Due Date Last Done Comments Depression: Screening Annual ly using PHQ-2/9 in Adults 18 yrs or above (or HM Modifier)(CVS ) 2020 Hepatitis C Virus Infection in Adolescents and Adults: Screening (or Modifier) (CVS ) 2020 SDOH Screening Reminder: [place] dimas for all adults (CVS ) 2020 Cervical Cancer Screenin 1-65 yrs of age (or Modifier) 11/23/2023 Cervical Cancer Screening: P ap every 3 yrs pts age 21-65 11/23/2023 Cervical Cancer: Pap Screeni ng with Modifier timing (CVS ) 11/23/2023 Cervical Cancer: hrHPV alone or with cotesting Pap for Pts 30-65yrs screening every 5yrs (CVS ) 11/23/2023 Tobacco Smoking Cessation: i n Adults excluding Women: Behavioral and Pharmacotherapy Interventions ([facility]) 12/13/2023 12/12/2022 Flu Vaccination: Yearly for ages 18mos through 64 years (or Modifier)(CVS ) 01/24/2024 03/23/2021, 03/25/2018 COVID-19 Vaccine Screening: Initial Series and Booster Status ([facility]) (2023- season) 2024 11/05/2020, 10/15/2020 DTaP/Tdap/Td Vaccines (CVS) (7 - Td or Tdap) 12/11/2024 12/11/2014, 12/13/2006, 03/21/2004, Additional history exists Zoster/Shingles Vaccine Seri es Screening: Adults aged 18+ yrs (or HM Modifiers)(CVS ) (1 of 2) 2052 12/05/2007, 07/13/2004 Pneumococcal Vaccination Scr eening: Pts 0-19 & 19-64 yrs of age ([facility]) Completed 11/15/2010, 11/15/2009, 07/12/2004, Additional history exists Lipid Screening: Once for [place] men aged 20 to 45 yrs ([facility]) Completed 04/14/2022 Medical Devices Not on file Insurance [facility] Care Teams Regional Guide Relationship Specialty Start Date End Date Jennifer Negron NP [address] [id number] PCP - General Family Medicine 11/12/21
--- OUTSIDE RECORDS SUMMARY | 2024-07-28 16:13 | XMS_ITS | Encounter Summary ---
Author Organization [employer] Address [address] [facility] [address], [place] [address] Care Team Providers Care Car Sales Representative Name Role Phone Gena Lewis PLANT SAFETY ENGINEER Unavailable [phone] Raul Andrews MD Primary Care Provide r Reason for Visit * Reason Onset Date Comments Med Refill 07/03/2024 Encounter Details Date Type Department Care Team (Late st Contact Info) Description 07/03/2024 Refill LORI CANELA [address] [place] [address] Shawn Mariee, ELAINE [address] [place] [address] Attention deficit hyperactivity disorder (ADHD), predominantly inattentive type Social History Tobacco Use Types Packs/Day Years [...] encounter Miscellaneous Notes * Telephone Encounter - CARLOS Crews - 07/03/2024 4:06 PM EST refill request Previous Appt: Past Appointments Date Time Status Provider Department Type Appt Notes 06/30/2024 2:00 PM Arrived LENNY [facility]den AN Video Visit 06/17/2024 1:00 PM Guido Wang MD AN INT MED Video Visit back pain 06/09/2024 1:00 PM Comp LENNY [facility] AN Video Visit 06/05/2024 10:00 AM Annmarie Singleton MD AN FAM MED Video Visit f/u 05/30/2024 9:40 AM Guido Singleton MD AN FAM MED Video Visit leave for accomodations Future Appointments Date Time Provider Department Center 07/22/2024 2:00 PM LENNY Hayden [facility] 07/25/2024 1:40 PM Shawn Mariee CNP AN [facility] Patient needs appointment desktop operator staff notify: No provider notify: No Controlled Substance Request : Medications lisdexamfetamine (Vyvanse) 30 MG capsule Last Refill Quantity: 30 Last # of Refills: 0 Last Rx Printed: 05/12/2024 CARLOS Crews 07/03/2024 documented in this encounter Plan of Treatment Upcoming Encounters Date Type Department Care Team (Late st Contact Info) Description 08/06/2024 3:00 PM EST Telemedicine [address] [address] Gena Lewis LICSW [address] [place] [phone] documented as of this encounter Visit Diagnoses Diagnosis Attention deficit hyperactivity disorder (ADHD), predominantly inattentive type documented in this encounter Additional Health Concerns Assessment Noted Time PHQ-9 Depression Total Score: 13 024 1:48 PM EST documented as of this encounter Care Teams Car Sales Representative Relationship Specialty Start Date End Date Raul Andrews MD [address] [place] [id number] PCP - General Internal Medicine 12/09/23 Gena Lewis, [facility] [address] [place] [address] Sql Bi Developer Behavioral Health 07/12/22 documented as of this encounter
== END ==
LOC: HO.CARD
PROVIDERS: Visit Provider Nurse Practitioner Family
DX: R00.2 Palpitations (principal)
CPT/HCPCS: 93242

== ENCOUNTER 2024-11-25 08:27 | Outpatient (REF) | payer MEDICAID, SELFPAY ==
--- NOTE | ~2024-11-25 | US_ITS ---
EXAMINATION: US PELVIS TRANSABDOMINAL AND TRANSVAGINAL HISTORY: PELVIC PAIN RT > LT COMPARISON: There are no prior studies available for comparison. TECHNIQUE: Transabdominal and endovaginal real-time 2D mclain-scale ultrasound was performed. FINDINGS: Uterus: The uterus is normal in size, measuring 7.4 x 3.2 x 3.6 cm. Myometrium has a normal echotexture. No fibroids are identified. Endometrium: The endometrial stripe measures 2 mm in thickness. Right ovary: The right ovary measures 3.9 x 2.8 x 2.8 cm. The right ovary is normal in size and echotexture. Left ovary: The left ovary measures 3.4 x 1.8 x 2.3 cm. The left ovary is normal in size and echotexture. Pelvic fluid: none. US/US pelvic and transvaginal IMPRESSION: Unremarkable pelvic ultrasound. Electronically signed by: Fadi Green MD 11/25/2024 02:06 PM EDT
--- OUTSIDE RECORDS SUMMARY | 2024-11-25 08:45 | XMS_ITS | Encounter Summary ---
Author Organization [employer] Address [address] [facility] [address] [place] [address] Care Team Providers Care Aquatics Lifeguard Name Role Phone Gena LewisSW Unavailable [phone] Raul Andrews MD Primary Care Provide r Reason for Visit * Reason Onset Date Comments Prior Authorization 07/28/2024 Encounter Details Date Type Department Care Team (Late st Contact Info) Description 07/28/[address] [address] Raul Andrews MD [address] [place] [phone] Prior Authorization Social History Tobacco Use Types [...] Care Team (Late st Contact Info) Description 11/26/2024 11:00 AM EDT Telemedicine [address] [address] Gena Lewis LICSW [address] [place] [phone] documented as of this encounter Visit Diagnoses Not on filedocumented in this encounter Additional Health Concerns Assessment Noted Time PHQ-9 Depression Total Score: 13 024 1:48 PM EST documented as of this encounter Care Teams Aquatics Lifeguard Relationship Specialty Start Date End Date Raul Andrews MD [address] [place] [phone] PCP - General Internal Medicine 12/09/23 Gena Lewis LICSW [address] [place] [phone] Engine Service Repairer Behavioral Health 07/12/22 documented as of this encounter
== END 2024-11-25 08:28 | disposition home or self-care (01) ==
LOC: HO.UMASIMG 08:27
PROVIDERS: Visit Provider Nurse Practitioner Women's Health
DX: R10.2 Pelvic and perineal pain (principal)
CPT/HCPCS: 76830; 76856

== ENCOUNTER → 2024-11-25 12:30 | Outpatient (BNV) | payer MEDICAID, SELFPAY | PROVIDERS: Visit Provider Radiology Diagnostic Radiology | DX: R10.2 Pelvic and perineal pain (principal) | CPT/HCPCS: 76830; 76856 ==